=== PATIENT | female | born 1960 | race Caucasian/White ===

== ENCOUNTER 2018-05-16 13:45 | Outpatient (RCR) | payer OTHER, BC, MEDICARE, SELFPAY ==
--- NOTE | 2018-03-25 17:22 | PT.OIE ---
Current Diagnoses Low back pain (03/25/18) Weakness (03/25/18) Past Medical History (Last Updated 02/23/18 @ 21:52 by Geeta Barber) Back pain (Chronic) Past Surgical History (Last Updated 02/23/18 @ 21:56 by Geeta Barber) Previous back surgery (Resolved) S/P insertion of intrathecal pump (Resolved) History of knee replacement Provider Visit Care Team Role Provider Type Cleveland Driver MD Attending Provider Physician Family Provider Primary Care Provider Specialty: Internal Medicine Address: [address] [place] [address], [facility] Email: [email or web address] Physical Therapy Initial Evaluation PT-OP-A Visit Information Start: 03/25/18 15:26 Freq: Status: Active Protocol: Document 03/25/18 15:29 [facility] (Rec: 03/25/18 17:21 [facility] [email or web address]) Out-Patient Physical Therapy Visit Information Visit Information Visit Type Re-Evaluation Visit Note Pt previously completed 12 PT visits ending December 19, 2017 & has new authorization for further visits Visit Start Time 15:30 Visit Stop Time 16:05 Total Visit Minutes 35 Visit Number 10/04 Number of COMFORT FILLER Visits 0 PT-OP-B Current Condition Start: 03/25/18 15:26 Freq: Status: Active Protocol: Document 03/25/18 15:29 [facility] (Rec: 03/25/18 17:21 [facility] [email or web address]) Current Condition History of Current Condition Current Complaints LBP History of Current Condition Pt reports she worked at [employer] in in [place] and had repetitive strain that caused LBP that resulted in a fusion in 1998 and then a revision. Per prior notes pt reported that during the revision they removed the screws and rods, but left the cages at L5-S1. She has an intrathecal pain pump and fentanyl patches and the pump was replaced in Sep 2017. Pt reports doing HEP about 3 times a week since last bout of PT, walks 2 miles daily and works on her larger yard ([employer]) for exercise. Pt reports she wants to lose weight but she has been unable to d/t being unable to work out. Pt reprots her HEP causes pain. Prior Treatments and Tests 12 visits of PT Treatment Goals Patient/Caregiver Goals Be able to lose weight (do exercise etc w/o inc pain), do her current activities easier PT-OP-C Subjective Start: 03/25/18 15:26 Freq: Status: Active Protocol: Document 03/25/18 15:29 [facility] (Rec: 03/25/18 17:21 [facility] [email or web address]) OP-PT Pain Assessment Location Bilateral Back Pain Location Details lumbar Intensity 5 Scale Used Numeric (1 - 10) Description- Other at best 3-4/10, worst 8-9/10, 5/10 average Frequency Constant Radiating Location occasional R toes go numb Other Pain Aggravating Factors extended: walking, standing, laying, sitting, activity Pain Alleviating Factors Cold Heat Medication Other Pain Alleviating Factors stretch PT-OP-F Manual Assessment Start: 03/25/18 17:21 Freq: Status: Active Protocol: Document 03/25/18 15:29 [facility] (Rec: 03/25/18 17:22 [facility] [email or web address]) Manual Assessments Other Manual Assessments Other Manual Assessments R iliac crest higher and post PT-OP-K Range of Motion Start: 03/25/18 15:26 Freq: Status: Active Protocol: Document 03/25/18 15:29 [facility] (Rec: 03/25/18 16:11 [facility] [id number]) Lumbar Spine Range of Motion Lumbar Spine Active Degrees Testing Position standing Flexion 20 Extension 7 Lateral Flexion Left 17 Lateral Flexion Right 9 Comments pain L with SB PT-OP-L Special Tests Start: 03/25/18 15:26 Freq: Status: Active Protocol: Document 03/25/18 15:29 [facility] (Rec: 03/25/18 16:11 [facility] [id number]) Special Tests Lumbar Spine Special Tests Slump Test Results neg B PT-OP-M Strength Start: 03/25/18 15:26 Freq: Status: Active Protocol: Document 03/25/18 15:29 [facility] (Rec: 03/25/18 16:11 [facility] [id number]) Hip Strength Hip Manual Muscle Testing Right Flexion (L2) 4 Good Abduction 4- Good- External Rotation 3+ Fair+ Internal Rotation 4 Good Comments 5/5 B PF & DF seated testing; pain ER B at about L3 Left Flexion (L2) 4 Good Abduction 4- Good- External Rotation 3+ Fair+ Internal Rotation 4 Good Knee Strength Knee Manual Muscle Testing Right Flexion (S2) 4+ Good+ Extension (L3) 4+ Good+ Left Flexion (S2) 4+ Good+ Extension (L3) 4 Good PT-OP-Q Treatments Start: 03/25/18 15:26 Freq: Status: Active Protocol: Document 03/25/18 15:29 [facility] (Rec: 03/25/18 17:21 [facility] [email or web address]) Therapeutic Activity Therapeutic Activity 1 Name sleeping position Comments s/l & supine position PT-OP-T Assessment and Plan Start: 03/25/18 15:26 Freq: Status: Active Protocol: Document 03/25/18 15:29 [facility] (Rec: 03/25/18 17:21 [facility] [email or web address]) Physical Therapy Assessment Rehab Potential Rehabilitation Potential Good Evaluation Complexity Number of Personal Factors/Comorbidities 1-2 Number of Body Systems Impaired 4 or More Clinical Presentation at Evaluation Stable Impairments Impairments Activity Tolerance Functional Activities Gait Pain Posture ROM Soft Tissue Mobility Strength Goals Three Impairment pain Flat Clothier Goal (LTG) pt will be indep in pain management techniques to avoid pain inc past 5/10 LTG Duration 05/26/18 Two Impairment ROM Short Term Goal (STG) Flex to 35 deg STG Duration 04/25/18 Flat Clothier Goal (LTG) Pt will be able to pick small objects from floor with good body mechanics without increasing her pain. LTG Duration 05/26/18 One Impairment strength Short Term Goal (STG) indep HEP with min reported pain STG Duration 04/25/18 Nursing Home Goal (LTG) 5/5 strength to allow pt greater ease with yard and house work LTG Duration 05/26/18 Physical Therapy Plan Frequency and Duration Frequency of Treatment 2x/Week Duration of Treatment 2 months Plan of Care Start Date 03/25/18 Plan of Care End Date 04/25/18 Therapeutic Interventions Therapeutic Interventions Aquatic Therapy Balance Training Gait Training Home Exercise Program Joint Mobilizations Manual Therapy Neuromuscular Re-education Soft Tissue Mobilization Taping Therapeutic Activities Therapeutic Exercises Modalities Cold Pack/Ice Massage Hot Packs Next Visit Focus/Plan Next Note Type Treatment Note Next Visit Plan Review core exercises from HEP
--- NOTE | 2018-03-25 17:22 | PT.OPPOC ---
Current Diagnoses Low back pain (03/25/18) Weakness (03/25/18) Provider Visit Care Team Role Provider Type Cleveland Driver MD Attending Provider Physician Family Provider Primary Care Provider Specialty: Internal Medicine Address: [address] [place] [address], [id number] Email: [email or web address] Plan Of Care PT-OP-T Assessment and Plan Start: 03/25/18 15:26 Freq: Status: Active Protocol: Document 03/25/18 15:29 [facility] (Rec: 03/25/18 17:21 [facility] [id number]) Physical Therapy Assessment Rehab Potential Rehabilitation Potential Good Evaluation Complexity Number of Personal Factors/Comorbidities 1-2 Number of Body Systems Impaired 4 or More Clinical Presentation at Evaluation Stable Impairments Impairments Activity Tolerance Functional Activities Gait Pain Posture ROM Soft Tissue Mobility Strength Goals Three Impairment pain Hydraulic Assembler Goal (LTG) pt will be indep in pain management techniques to avoid pain inc past 5/10 LTG Duration 05/26/18 Two Impairment ROM Short Term Goal (STG) Flex to 35 deg STG Duration 04/25/18 Correction Goal (LTG) Pt will be able to pick small objects from floor with good body mechanics without increasing her pain. LTG Duration 05/26/18 One Impairment strength Short Term Goal (STG) indep HEP with min reported pain STG Duration 04/25/18 Hydraulic Assembler Goal (LTG) 5/5 strength to allow pt greater ease with yard and house work LTG Duration 05/26/18 Physical Therapy Plan Frequency and Duration Frequency of Treatment 2x/Week Duration of Treatment 2 months Plan of Care Start Date 03/25/18 Plan of Care End Date 04/25/18 Therapeutic Interventions Therapeutic Interventions Aquatic Therapy Balance Training Gait Training Home Exercise Program Joint Mobilizations Manual Therapy Neuromuscular Re-education Soft Tissue Mobilization Taping Therapeutic Activities Therapeutic Exercises Modalities Cold Pack/Ice Massage Hot Packs Next Visit Focus/Plan Next Note Type Treatment Note Next Visit Plan Review core exercises from [facility] Plan of Care Dates Plan of Care Start Date 03/25/18 Plan of Care End Date 04/25/18 Please Sign and Return: I have reviewed this Plan of Care and certify that the skilled therapy services above are required to meet the patient?s needs. Physician Signature Date Printed Name and Credentials Clinical Instructor Signature Printed Name and Credentials
--- NOTE | 2018-04-15 11:51 | PT.OTN ---
Current Diagnoses Low back pain (04/15/18) Weakness (04/15/18) Physical Therapy Treatment Note PT-OP-A Visit Information Start: 03/25/18 15:26 Freq: Status: Active Protocol: Document 04/15/18 10:00 AMB (Rec: 04/15/18 10:07 AMB [id number]) Out-Patient Physical Therapy Visit Information Visit Information Visit Type Treatment Note Visit Start Time 10:00 Visit Stop Time 10:30 Total Visit Minutes 30 Visit Number 11/04 PT-OP-B Current Condition Start: 03/25/18 15:26 Freq: Status: Active Protocol: Document 03/25/18 15:29 [facility] (Rec: 03/25/18 17:21 LR [email or web address]) Current Condition History of Current Condition Current Complaints LBP History of Current Condition Pt reports she worked at [employer] in [employer] in [place] and had repetitive strain that caused LBP that resulted in a fusion in 1998 and then a revision. Per prior notes pt reported that during the revision they removed the screws and rods, but left the cages at L5-S1. She has an intrathecal pain pump and fentanyl patches and the pump was replaced in Sep 2017. Pt reports doing HEP about 3 times a week since last bout of PT, walks 2 miles daily and works on her larger yard ([employer]) for exercise. Pt reports she wants to lose weight but she has been unable to d/t being unable to work out. Pt reprots her HEP causes pain. Prior Treatments and Tests 12 visits of PT Treatment Goals Patient/Caregiver Goals Be able to lose weight (do exercise etc w/o inc pain), do her current activities easier PT-OP-C Subjective Start: 03/25/18 15:26 Freq: Status: Active Protocol: Document 04/15/18 10:00 AMB (Rec: 04/15/18 11:50 AMB [email or web address]) OP-PT Subjective Patient Comments Patient Comments The patient attends PT 15 minutes late. She is having a difficult time sleeping due to medication changes. PT-OP-F Manual Assessment Start: 03/25/18 17:21 Freq: Status: Active Protocol: Document 03/25/18 15:29 LR (Rec: 03/25/18 17:22 LR [email or web address]) Manual Assessments Other Manual Assessments Other Manual Assessments R iliac crest higher and post PT-OP-K Range of Motion Start: 03/25/18 15:26 Freq: Status: Active Protocol: Document 03/25/18 15:29 [facility] (Rec: 03/25/18 16:11 [facility] [id number]) Lumbar Spine Range of Motion Lumbar Spine Active Degrees Testing Position standing Flexion 20 Extension 7 Lateral Flexion Left 17 Lateral Flexion Right 9 Comments pain L with SB PT-OP-L Special Tests Start: 03/25/18 15:26 Freq: Status: Active Protocol: Document 03/25/18 15:29 [facility] (Rec: 03/25/18 16:11 [facility] [id number]) Special Tests Lumbar Spine Special Tests Slump Test Results neg B PT-OP-M Strength Start: 03/25/18 15:26 Freq: Status: Active Protocol: Document 03/25/18 15:29 [facility] (Rec: 03/25/18 16:11 [facility] [id number]) Hip Strength Hip Manual Muscle Testing Right Flexion (L2) 4 Good Abduction 4- Good- External Rotation 3+ Fair+ Internal Rotation 4 Good Comments 5/5 B PF & DF seated testing; pain ER B at about L3 Left Flexion (L2) 4 Good Abduction 4- Good- External Rotation 3+ Fair+ Internal Rotation 4 Good Knee Strength Knee Manual Muscle Testing Right Flexion (S2) 4+ Good+ Extension (L3) 4+ Good+ Left Flexion (S2) 4+ Good+ Extension (L3) 4 Good PT-OP-Q Treatments Start: 03/25/18 15:26 Freq: Status: Active Protocol: Document 04/15/18 10:00 AMB (Rec: 04/15/18 11:50 AMB [email or web address]) Therapeutic Activity Therapeutic Activity 2 Name gardening mechanics Comments avoiding overuse 1 Name sleeping position Comments s/l & supine position, pillow props Manual Therapy Treatment Soft Tissue Mobilization 1 Body Location Left low back Comments safe usage of theracane PT-OP-T Assessment and Plan Start: 03/25/18 15:26 Freq: Status: Active Protocol: Document 04/15/18 09:45 AMB (Rec: 04/15/18 11:41 AMB [id number]) Physical Therapy Assessment Assessment Summary Assessment The patient was upset today because she is no longer able to get the same opiates and has not been sleeping well. Pt knows she has sleep apnea but cannot tolerate a CPAP. Discussed self care techniques and sleep positioning. Pt to follow up with body pillow, theracane as able. Physical Therapy Plan Next Visit Focus/Plan Next Visit Plan Follow up on HEP, begin core stability training- discuss safe gym exercises
--- NOTE | 2018-04-17 12:26 | PT.OTN ---
Current Diagnoses Low back pain (04/17/18) Weakness (04/17/18) Physical Therapy Treatment Note PT-OP-A Visit Information Start: 03/25/18 15:26 Freq: Status: Active Protocol: Document 04/17/18 11:10 EA (Rec: 04/17/18 11:14 EA [id number]) Out-Patient Physical Therapy Visit Information Visit Information Visit Type Treatment Note Visit Start Time 10:30 Visit Stop Time 11:40 PT-OP-B Current Condition Start: 03/25/18 15:26 Freq: Status: Active Protocol: Document 03/25/18 15:29 [facility] (Rec: 03/25/18 17:21 [facility] [id number]) Current Condition History of Current Condition Current Complaints LBP History of Current Condition Pt reports she worked at [employer] in [employer] in [place] and had repetitive strain that caused LBP that resulted in a fusion in 1998 and then a revision. Per prior notes pt reported that during the revision they removed the screws and rods, but left the cages at L5-S1. She has an intrathecal pain pump and fentanyl patches and the pump was replaced in Sep 2017. Pt reports doing HEP about 3 times a week since last bout of PT, walks 2 miles daily and works on her larger yard ([employer]) for exercise. Pt reports she wants to lose weight but she has been unable to d/t being unable to work out. Pt reprots her HEP causes pain. Prior Treatments and Tests 12 visits of PT Treatment Goals Patient/Caregiver Goals Be able to lose weight (do exercise etc w/o inc pain), do her current activities easier PT-OP-C Subjective Start: 03/25/18 15:26 Freq: Status: Active Protocol: Document 04/17/18 11:10 EA (Rec: 04/17/18 11:14 EA [id number]) OP-PT Subjective Patient Comments Patient Comments Patient reports she has been walking a lot and doing HEP; states pain usually occurs after HEP. Denies loss both LE strength or abnormal sensation. Patient Reported Progress Same PT-OP-F Manual Assessment Start: 03/25/18 17:21 Freq: Status: Active Protocol: Document 03/25/18 15:29 [facility] (Rec: 03/25/18 17:22 [facility] [id number]) Manual Assessments Other Manual Assessments Other Manual Assessments R iliac crest higher and post PT-OP-K Range of Motion Start: 03/25/18 15:26 Freq: Status: Active Protocol: Document 03/25/18 15:29 [facility] (Rec: 03/25/18 16:11 [facility] [id number]) Lumbar Spine Range of Motion Lumbar Spine Active Degrees Testing Position standing Flexion 20 Extension 7 Lateral Flexion Left 17 Lateral Flexion Right 9 Comments pain L with SB PT-OP-L Special Tests Start: 03/25/18 15:26 Freq: Status: Active Protocol: Document 03/25/18 15:29 [facility] (Rec: 03/25/18 16:11 [facility] [id number]) Special Tests Lumbar Spine Special Tests Slump Test Results neg B PT-OP-M Strength Start: 03/25/18 15:26 Freq: Status: Active Protocol: Document 03/25/18 15:29 [facility] (Rec: 03/25/18 16:11 [facility] [id number]) Hip Strength Hip Manual Muscle Testing Right Flexion (L2) 4 Good Abduction 4- Good- External Rotation 3+ Fair+ Internal Rotation 4 Good Comments 5/5 B PF & DF seated testing; pain ER B at about L3 Left Flexion (L2) 4 Good Abduction 4- Good- External Rotation 3+ Fair+ Internal Rotation 4 Good Knee Strength Knee Manual Muscle Testing Right Flexion (S2) 4+ Good+ Extension (L3) 4+ Good+ Left Flexion (S2) 4+ Good+ Extension (L3) 4 Good PT-OP-Q Treatments Start: 03/25/18 15:26 Freq: Status: Active Protocol: Document 04/17/18 11:10 EA (Rec: 04/17/18 11:14 EA [id number]) Cardio Equipment Recumbent Stepper (Sci-Fit) Duration (Minutes) 6 Resistance 1.5 Therapeutic Exercises Supine Exercises 4 Supine Exercise Name SKTC to Double knee to chest with PPT Reps/Minutes x 15 SH x 3 reps 3 Supine Exercise Name PPT + stati sit up + unilat leg raises Side bilateral Reps/Minutes x 5 reps x sets each leg 2 Supine Exercise Name PPT + static sit ups Reps/Minutes x 5SH x 5 reps 1 Supine Exercise Name PPT Reps/Minutes x 5SH x 5 reps Self-Care/Home Management Treatment Education Patient Education Body Mechanics Home Exercise Program Pain Management Posture Other Education educated with proper safe body weight loss and adviced exercises that may aggravates low back pain. PT-OP-R Modalities Start: 03/25/18 15:26 Freq: Status: Active Protocol: Document 04/17/18 12:21 EA (Rec: 04/17/18 12:25 EA [id number]) Hot Pack/Cold Pack Treatment Cold Pack Patient Position Hooklying Patient Tolerance Good PT-OP-T Assessment and Plan Start: 03/25/18 15:26 Freq: Status: Active Protocol: Document 04/17/18 12:21 EA (Rec: 04/17/18 12:25 EA [id number]) Physical Therapy Assessment Assessment Summary Assessment Noted increased low back lordosis with weak core control in all position; advance core control is not recommended to this patient as this may causes increased pressure to low back. Physical Therapy Plan Next Visit Focus/Plan Next Note Type Treatment Note Next Visit Plan Cont with current plan. To progress core control in prone and to standing once supine exercises did not causes any adverse reaction.
--- NOTE | 2018-04-22 13:05 | PT.OTN ---
Current Diagnoses Low back pain (04/22/18) Weakness (04/22/18) Physical Therapy Treatment Note PT-OP-A Visit Information Start: 03/25/18 15:26 Freq: Status: Active Protocol: Document 04/22/18 09:45 AMB (Rec: 04/23/18 11:26 AMB [email or web address]) Out-Patient Physical Therapy Visit Information Visit Information Visit Type Treatment Note Visit Start Time 10:30 Visit Stop Time 11:40 Total Visit Minutes 45 Visit Number 4/ PT-OP-B Current Condition Start: 03/25/18 15:26 Freq: Status: Active Protocol: Document 03/25/18 15:29 [facility] (Rec: 03/25/18 17:21 [facility] [id number]) Current Condition History of Current Condition Current Complaints LBP History of Current Condition Pt reports she worked at [employer] in [place] in [place] and had repetitive strain that caused LBP that resulted in a fusion in 1998 and then a revision. Per prior notes pt reported that during the revision they removed the screws and rods, but left the cages at L5-S1. She has an intrathecal pain pump and fentanyl patches and the pump was replaced in Sep 2017. Pt reports doing HEP about 3 times a week since last bout of PT, walks 2 miles daily and works on her larger yard ([employer]) for exercise. Pt reports she wants to lose weight but she has been unable to d/t being unable to work out. Pt reprots her HEP causes pain. Prior Treatments and Tests 12 visits of PT Treatment Goals Patient/Caregiver Goals Be able to lose weight (do exercise etc w/o inc pain), do her current activities easier PT-OP-C Subjective Start: 03/25/18 15:26 Freq: Status: Active Protocol: Document 04/22/18 09:45 AMB (Rec: 04/23/18 11:26 AMB [email or web address]) OP-PT Subjective Patient Comments Patient Comments Pt continues to be painful, difficult time sleeping. PT-OP-F Manual Assessment Start: 03/25/18 17:21 Freq: Status: Active Protocol: Document 03/25/18 15:29 [facility] (Rec: 03/25/18 17:22 [facility] [id number]) Manual Assessments Other Manual Assessments Other Manual Assessments R iliac crest higher and post PT-OP-K Range of Motion Start: 03/25/18 15:26 Freq: Status: Active Protocol: Document 03/25/18 15:29 [facility] (Rec: 03/25/18 16:11 [facility] [id number]) Lumbar Spine Range of Motion Lumbar Spine Active Degrees Testing Position standing Flexion 20 Extension 7 Lateral Flexion Left 17 Lateral Flexion Right 9 Comments pain L with SB PT-OP-L Special Tests Start: 03/25/18 15:26 Freq: Status: Active Protocol: Document 03/25/18 15:29 [facility] (Rec: 03/25/18 16:11 [facility] [id number]) Special Tests Lumbar Spine Special Tests Slump Test Results neg B PT-OP-M Strength Start: 03/25/18 15:26 Freq: Status: Active Protocol: Document 03/25/18 15:29 [facility] (Rec: 03/25/18 16:11 [facility] [id number]) Hip Strength Hip Manual Muscle Testing Right Flexion (L2) 4 Good Abduction 4- Good- External Rotation 3+ Fair+ Internal Rotation 4 Good Comments 5/5 B PF & DF seated testing; pain ER B at about L3 Left Flexion (L2) 4 Good Abduction 4- Good- External Rotation 3+ Fair+ Internal Rotation 4 Good Knee Strength Knee Manual Muscle Testing Right Flexion (S2) 4+ Good+ Extension (L3) 4+ Good+ Left Flexion (S2) 4+ Good+ Extension (L3) 4 Good PT-OP-Q Treatments Start: 03/25/18 15:26 Freq: Status: Active Protocol: Document 04/22/18 09:45 AMB (Rec: 04/23/18 11:26 AMB [email or web address]) Therapeutic Exercises Supine Exercises 6 Supine Exercise Name SLR Reps/Minutes 10 5 Supine Exercise Name mini bridge Comments with posterior pelvic tilt 4 Supine Exercise Name SKTC to Double knee to chest with PPT Reps/Minutes x 15 SH x 3 reps 1 Supine Exercise Name PPT Reps/Minutes x 5SH x 5 reps Sidelying Exercises 1 Sidelying Exercise Name hip abd Reps/Minutes 2x10 Standing Exercises 1 Standing Exercise Name squat Reps/Minutes 10 PT-OP-R Modalities Start: 03/25/18 15:26 Freq: Status: Active Protocol: Document 04/17/18 12:21 EA (Rec: 04/17/18 12:25 EA [id number]) Hot Pack/Cold Pack Treatment Cold Pack Patient Position Hooklying Patient Tolerance Good PT-OP-T Assessment and Plan Start: 03/25/18 15:26 Freq: Status: Active Protocol: Document 04/22/18 09:45 AMB (Rec: 04/23/18 13:00 AMB [email or web address]) Physical Therapy Assessment Assessment Summary Assessment Pt continues to substitute with gluteals/hamstrings for core exercises unless extensive cues given. Physical Therapy Plan Next Visit Focus/Plan Next Visit Plan Continue with supine progression for now
--- NOTE | 2018-04-24 12:09 | PT.OTN ---
Current Diagnoses Low back pain (04/24/18) Weakness (04/24/18) Physical Therapy Treatment Note PT-OP-A Visit Information Start: 03/25/18 15:26 Freq: Status: Active Protocol: Document 04/24/18 11:15 AMB (Rec: 04/24/18 11:42 AMB [id number]) Out-Patient Physical Therapy Visit Information Visit Information Visit Type Treatment Note Visit Start Time 11:15 Visit Stop Time 12:00 Total Visit Minutes 45 Visit Number 02/01 Evaluation Information Evaluation Date 04/24/18 PT-OP-B Current Condition Start: 03/25/18 15:26 Freq: Status: Active Protocol: Document 03/25/18 15:29 [facility] (Rec: 03/25/18 17:21 [facility] [id number]) Current Condition History of Current Condition Current Complaints LBP History of Current Condition Pt reports she worked at [employer] in [place] in [place] and had repetitive strain that caused LBP that resulted in a fusion in 1998 and then a revision. Per prior notes pt reported that during the revision they removed the screws and rods, but left the cages at L5-S1. She has an intrathecal pain pump and fentanyl patches and the pump was replaced in Sep 2017. Pt reports doing HEP about 3 times a week since last bout of PT, walks 2 miles daily and works on her larger yard [employer] for exercise. Pt reports she wants to lose weight but she has been unable to d/t being unable to work out. Pt reprots her HEP causes pain. Prior Treatments and Tests 12 visits of PT Treatment Goals Patient/Caregiver Goals Be able to lose weight (do exercise etc w/o inc pain), do her current activities easier PT-OP-C Subjective Start: 03/25/18 15:26 Freq: Status: Active Protocol: Document 04/24/18 11:15 AMB (Rec: 04/24/18 12:09 AMB [email or web address]) OP-PT Subjective Patient Comments Patient Comments Pt was painful after last session in the evening. Not sure if because of PT or not. Yesterday she was painful with standing. PT-OP-F Manual Assessment Start: 03/25/18 17:21 Freq: Status: Active Protocol: Document 03/25/18 15:29 [facility] (Rec: 03/25/18 17:22 [facility] [email or web address]) Manual Assessments Other Manual Assessments Other Manual Assessments R iliac crest higher and post PT-OP-K Range of Motion Start: 03/25/18 15:26 Freq: Status: Active Protocol: Document 03/25/18 15:29 [facility] (Rec: 03/25/18 16:11 [facility] [id number]) Lumbar Spine Range of Motion Lumbar Spine Active Degrees Testing Position standing Flexion 20 Extension 7 Lateral Flexion Left 17 Lateral Flexion Right 9 Comments pain L with SB PT-OP-L Special Tests Start: 03/25/18 15:26 Freq: Status: Active Protocol: Document 03/25/18 15:29 [facility] (Rec: 03/25/18 16:11 [facility] [id number]) Special Tests Lumbar Spine Special Tests Slump Test Results neg B PT-OP-M Strength Start: 03/25/18 15:26 Freq: Status: Active Protocol: Document 03/25/18 15:29 [facility] (Rec: 03/25/18 16:11 [facility] [id number]) Hip Strength Hip Manual Muscle Testing Right Flexion (L2) 4 Good Abduction 4- Good- External Rotation 3+ Fair+ Internal Rotation 4 Good Comments 5/5 B PF & DF seated testing; pain ER B at about L3 Left Flexion (L2) 4 Good Abduction 4- Good- External Rotation 3+ Fair+ Internal Rotation 4 Good Knee Strength Knee Manual Muscle Testing Right Flexion (S2) 4+ Good+ Extension (L3) 4+ Good+ Left Flexion (S2) 4+ Good+ Extension (L3) 4 Good PT-OP-Q Treatments Start: 03/25/18 15:26 Freq: Status: Active Protocol: Document 04/24/18 11:15 AMB (Rec: 04/24/18 12:09 AMB [email or web address]) Therapeutic Exercises Supine Exercises 7 Supine Exercise Name supine march Reps/Minutes 2x10 6 Supine Exercise Name SLR eccentric Reps/Minutes 10 4 Supine Exercise Name SKTC to Double knee to chest with PPT Reps/Minutes x 3 reps 1 Supine Exercise Name PPT Reps/Minutes x 5 reps Standing Exercises 1 Standing Exercise Name squat Reps/Minutes 10 Therapeutic Activity Therapeutic Activity 3 Name Active standing Comments stride stance, soft knees, active core PT-OP-R Modalities Start: 03/25/18 15:26 Freq: Status: Active Protocol: Document 04/17/18 12:21 EA (Rec: 04/17/18 12:25 EA [id number]) Hot Pack/Cold Pack Treatment Cold Pack Patient Position Hooklying Patient Tolerance Good PT-OP-T Assessment and Plan Start: 03/25/18 15:26 Freq: Status: Active Protocol: Document 04/24/18 11:21 AMB (Rec: 04/24/18 11:29 AMB [id number]) Physical Therapy Assessment Goals Three Impairment pain Animal Handler Goal (LTG) pt will be indep in pain management techniques to avoid pain inc past 01/30. PARTIALLY MET /10 current, but pain can flare easily LTG Duration 05/26/18 Two Impairment ROM Short Term Goal (STG) Flex to 35 deg NOT MET STG Duration 04/25/18 Animal Handler Goal (LTG) Pt will be able to pick small objects from floor with good body mechanics without increasing her pain. - PARTIALLY MET LTG Duration 05/26/18 One Impairment strength Short Term Goal (STG) indep HEP with min reported pain - PARTIALLY MET STG Duration 04/25/18 Animal Handler Goal (LTG) 5/5 strength to allow pt greater ease with yard and house work NOT MET LTG Duration 05/26/18 Assessment Summary Assessment The patient had an increase in pain with gentle supine exercises today. Using deep abdominals continues to be challenging. Physical Therapy Plan Frequency and Duration Frequency of Treatment 2x/Week Duration of Treatment 2 months Plan of Care Start Date 04/24/18 Plan of Care End Date 06/24/18 Therapeutic Interventions Therapeutic Interventions Aquatic Therapy Balance Training Gait Training Home Exercise Program Joint Mobilizations Manual Therapy Neuromuscular Re-education Soft Tissue Mobilization Taping Therapeutic Activities Therapeutic Exercises Modalities Cold Pack/Ice Massage Hot Packs Next Visit Focus/Plan Next Note Type Treatment Note Next Visit Plan Slowly progress core exercises if tolerated
--- NOTE | 2018-04-24 12:11 | PT.OPPOC ---
Current Diagnoses Low back pain (04/24/18) Weakness (04/24/18) Provider Visit Care Team Role Provider Type [place] Driver MD Attending Provider Physician Family Provider Primary Care Provider Specialty: Internal Medicine Address: [address] [place] [address], [id number] Email: [email or web address] Plan Of Care PT-OP-T Assessment and Plan Start: 03/25/18 15:26 Freq: Status: Active Protocol: Document 04/24/18 11:21 AMB (Rec: 04/24/18 11:29 AMB [id number]) Physical Therapy Assessment Goals Three Impairment pain Retail Store Assistant Goal (LTG) pt will be indep in pain management techniques to avoid pain inc past 01/30. PARTIALLY MET 10 current, but pain can flare easily LTG Duration 05/26/18 Two Impairment ROM Short Term Goal (STG) Flex to 35 deg NOT MET STG Duration 04/25/18 Retail Store Assistant Goal (LTG) Pt will be able to pick small objects from floor with good body mechanics without increasing her pain. - PARTIALLY MET LTG Duration 05/26/18 One Impairment strength Short Term Goal (STG) indep HEP with min reported pain - PARTIALLY MET STG Duration 04/25/18 Retail Store Assistant Goal (LTG) 5/5 strength to allow pt greater ease with yard and house work NOT MET LTG Duration 05/26/18 Assessment Summary Assessment The patient had an increase in pain with gentle supine exercises today. Using deep abdominals continues to be challenging. Physical Therapy Plan Frequency and Duration Frequency of Treatment 2x/Week Duration of Treatment 2 months Plan of Care Start Date 04/24/18 Plan of Care End Date 06/24/18 Therapeutic Interventions Therapeutic Interventions Aquatic Therapy Balance Training Gait Training Home Exercise Program Joint Mobilizations Manual Therapy Neuromuscular Re-education Soft Tissue Mobilization Taping Therapeutic Activities Therapeutic Exercises Modalities Cold Pack/Ice Massage Hot Packs Next Visit Focus/Plan Next Note Type Treatment Note Next Visit Plan Slowly progres core exercises if tolerated Plan of Care Dates Plan of Care Start Date 04/24/18 Plan of Care End Date 06/24/18 Please Sign and Return: I have reviewed this Plan of Care and certify that the skilled therapy services above are required to meet the patient?s needs. Physician Signature Date Printed Name and Credentials Clinical Instructor Signature Printed Name and Credentials
--- NOTE | 2018-04-29 14:05 | PT.OTN ---
Current Diagnoses Low back pain (04/29/18) Weakness (04/29/18) Physical Therapy Treatment Note PT-OP-A Visit Information Start: 03/25/18 15:26 Freq: Status: Active Protocol: Document 04/29/18 13:00 AMB (Rec: 04/29/18 13:14 AMB [id number]) Out-Patient Physical Therapy Visit Information Visit Information Visit Type Treatment Note Visit Start Time 11:15 Visit Stop Time 12:00 Total Visit Minutes 45 Visit Number 03/04 Evaluation Information Evaluation Date 04/24/18 PT-OP-B Current Condition Start: 03/25/18 15:26 Freq: Status: Active Protocol: Document 03/25/18 15:29 [facility] (Rec: 03/25/18 17:21 [facility] [id number]) Current Condition History of Current Condition Current Complaints LBP History of Current Condition Pt reports she worked at [employer] in [place] in [place] and had repetitive strain that caused LBP that resulted in a fusion in 1998 and then a revision. Per prior notes pt reported that during the revision they removed the screws and rods, but left the cages at L5-S1. She has an intrathecal pain pump and fentanyl patches and the pump was replaced in Sep 2017. Pt reports doing HEP about 3 times a week since last bout of PT, walks 2 miles daily and works on her larger yard [employer]) for exercise. Pt reports she wants to lose weight but she has been unable to d/t being unable to work out. Pt reprots her HEP causes pain. Prior Treatments and Tests 12 visits of PT Treatment Goals Patient/Caregiver Goals Be able to lose weight (do exercise etc w/o inc pain), do her current activities easier PT-OP-C Subjective Start: 03/25/18 15:26 Freq: Status: Active Protocol: Document 04/29/18 13:00 AMB (Rec: 04/29/18 13:14 AMB [id number]) OP-PT Subjective Patient Comments Patient Comments Pt painful after last session, but not as much. PT-OP-F Manual Assessment Start: 03/25/18 17:21 Freq: Status: Active Protocol: Document 03/25/18 15:29 [facility] (Rec: 03/25/18 17:22 [facility] [id number]) Manual Assessments Other Manual Assessments Other Manual Assessments R iliac crest higher and post PT-OP-K Range of Motion Start: 03/25/18 15:26 Freq: Status: Active Protocol: Document 03/25/18 15:29 [facility] (Rec: 03/25/18 16:11 [facility] [id number]) Lumbar Spine Range of Motion Lumbar Spine Active Degrees Testing Position standing Flexion 20 Extension 7 Lateral Flexion Left 17 Lateral Flexion Right 9 Comments pain L with SB PT-OP-L Special Tests Start: 03/25/18 15:26 Freq: Status: Active Protocol: Document 03/25/18 15:29 [facility] (Rec: 03/25/18 16:11 [facility] [id number]) Special Tests Lumbar Spine Special Tests Slump Test Results neg B PT-OP-M Strength Start: 03/25/18 15:26 Freq: Status: Active Protocol: Document 03/25/18 15:29 [facility] (Rec: 03/25/18 16:11 [facility] [id number]) Hip Strength Hip Manual Muscle Testing Right Flexion (L2) 4 Good Abduction 4- Good- External Rotation 3+ Fair+ Internal Rotation 4 Good Comments 5/5 B PF & DF seated testing; pain ER B at about L3 Left Flexion (L2) 4 Good Abduction 4- Good- External Rotation 3+ Fair+ Internal Rotation 4 Good Knee Strength Knee Manual Muscle Testing Right Flexion (S2) 4+ Good+ Extension (L3) 4+ Good+ Left Flexion (S2) 4+ Good+ Extension (L3) 4 Good PT-OP-Q Treatments Start: 03/25/18 15:26 Freq: Status: Active Protocol: Document 04/29/18 13:00 AMB (Rec: 04/29/18 13:56 AMB [id number]) Cardio Equipment Recumbent Elliptical ([employer]) Duration (Minutes) 8 Resistance 4 Therapeutic Exercises Supine Exercises 7 Supine Exercise Name supine march Reps/Minutes 2x10 6 Supine Exercise Name SLR eccentric Reps/Minutes 10 4 Supine Exercise Name SKTC to Double knee to chest with PPT Reps/Minutes x 3 reps Prone Exercises 1 Prone Exercise Name lumbar extension Reps/Minutes 10 Comments on forearms Standing Exercises 1 Standing Exercise Name standing lumbar extension Comments at// bars behind back Therapeutic Activity Therapeutic Activity 3 Name Active standing Comments stride stance, soft knees, active core 2 Name standing kitchen Comments body mechanics of washing dishes PT-OP-R Modalities Start: 03/25/18 15:26 Freq: Status: Active Protocol: Document 04/17/18 12:21 EA (Rec: 04/17/18 12:25 EA [id number]) Hot Pack/Cold Pack Treatment Cold Pack Patient Position Hooklying Patient Tolerance Good PT-OP-T Assessment and Plan Start: 03/25/18 15:26 Freq: Status: Active Protocol: Document 04/29/18 13:00 AMB (Rec: 04/29/18 13:56 AMB [id number]) Physical Therapy Assessment Assessment Summary Assessment The patient is doing better with exercise tolerance, but continues to have a high baseline pain. Physical Therapy Plan Next Visit Focus/Plan Next Note Type Treatment Note Next Visit Plan Progress core stability, body mechanics.
--- NOTE | 2018-05-01 12:42 | PT.OTN ---
Current Diagnoses Low back pain (05/01/18) Weakness (05/01/18) Physical Therapy Treatment Note PT-OP-A Visit Information Start: 03/25/18 15:26 Freq: Status: Active Protocol: Document 05/01/18 11:15 AMB (Rec: 05/01/18 11:32 AMB [id number]) Out-Patient Physical Therapy Visit Information Visit Information Visit Type Treatment Note Visit Start Time 11:30 Visit Stop Time 12:00 Total Visit Minutes 30 Visit Number 04/03 Evaluation Information Evaluation Date 04/24/18 PT-OP-B Current Condition Start: 03/25/18 15:26 Freq: Status: Active Protocol: Document 03/25/18 15:29 [facility] (Rec: 03/25/18 17:21 [facility] [id number]) Current Condition History of Current Condition Current Complaints LBP History of Current Condition Pt reports she worked at [employer] in [employer] in [place] and had repetitive strain that caused LBP that resulted in a fusion in 1998 and then a revision. Per prior notes pt reported that during the revision they removed the screws and rods, but left the cages at L5-S1. She has an intrathecal pain pump and fentanyl patches and the pump was replaced in Sep 2017. Pt reports doing HEP about 3 times a week since last bout of PT, walks 2 miles daily and works on her larger yard [employer] for exercise. Pt reports she wants to lose weight but she has been unable to d/t being unable to work out. Pt reprots her HEP causes pain. Prior Treatments and Tests 12 visits of PT Treatment Goals Patient/Caregiver Goals Be able to lose weight (do exercise etc w/o inc pain), do her current activities easier PT-OP-C Subjective Start: 03/25/18 15:26 Freq: Status: Active Protocol: Document 05/01/18 11:15 AMB (Rec: 05/01/18 11:32 AMB [id number]) OP-PT Subjective Patient Comments Patient Comments Pt not painful after last session. PT-OP-F Manual Assessment Start: 03/25/18 17:21 Freq: Status: Active Protocol: Document 03/25/18 15:29 [facility] (Rec: 03/25/18 17:22 [facility] [id number]) Manual Assessments Other Manual Assessments Other Manual Assessments R iliac crest higher and post PT-OP-K Range of Motion Start: 03/25/18 15:26 Freq: Status: Active Protocol: Document 03/25/18 15:29 [facility] (Rec: 03/25/18 16:11 [facility] [id number]) Lumbar Spine Range of Motion Lumbar Spine Active Degrees Testing Position standing Flexion 20 Extension 7 Lateral Flexion Left 17 Lateral Flexion Right 9 Comments pain L with SB PT-OP-L Special Tests Start: 03/25/18 15:26 Freq: Status: Active Protocol: Document 03/25/18 15:29 [facility] (Rec: 03/25/18 16:11 [facility] [id number]) Special Tests Lumbar Spine Special Tests Slump Test Results neg B PT-OP-M Strength Start: 03/25/18 15:26 Freq: Status: Active Protocol: Document 03/25/18 15:29 [facility] (Rec: 03/25/18 16:11 [facility] [id number]) Hip Strength Hip Manual Muscle Testing Right Flexion (L2) 4 Good Abduction 4- Good- External Rotation 3+ Fair+ Internal Rotation 4 Good Comments 5/5 B PF & DF seated testing; pain ER B at about L3 Left Flexion (L2) 4 Good Abduction 4- Good- External Rotation 3+ Fair+ Internal Rotation 4 Good Knee Strength Knee Manual Muscle Testing Right Flexion (S2) 4+ Good+ Extension (L3) 4+ Good+ Left Flexion (S2) 4+ Good+ Extension (L3) 4 Good PT-OP-Q Treatments Start: 03/25/18 15:26 Freq: Status: Active Protocol: Document 05/01/18 11:15 AMB (Rec: 05/01/18 11:53 AMB [id number]) Cardio Equipment Recumbent Elliptical ([employer]) Duration (Minutes) 8 Resistance 4 Therapeutic Exercises Supine Exercises 7 Supine Exercise Name supine march Reps/Minutes 2x10 6 Supine Exercise Name SLR eccentric Reps/Minutes 10 5 Supine Exercise Name mini bridge Comments with posterior pelvic tilt 4 Supine Exercise Name SKTC to Double knee to chest with PPT Reps/Minutes x 3 reps 1 Supine Exercise Name PPT Reps/Minutes x 5 reps Prone Exercises 1 Prone Exercise Name lumbar extension Reps/Minutes 10 Comments on forearms Standing Exercises 1 Standing Exercise Name squat Reps/Minutes 10 PT-OP-R Modalities Start: 03/25/18 15:26 Freq: Status: Active Protocol: Document 04/17/18 12:21 EA (Rec: 04/17/18 12:25 EA [id number]) Hot Pack/Cold Pack Treatment Cold Pack Patient Position Hooklying Patient Tolerance Good PT-OP-T Assessment and Plan Start: 03/25/18 15:26 Freq: Status: Active Protocol: Document 05/01/18 11:15 AMB (Rec: 05/01/18 12:40 AMB [email or web address]) Physical Therapy Assessment Assessment Summary Assessment The patient was painful with squats today, difficulty coming into lumbar neutral. Physical Therapy Plan Next Visit Focus/Plan Next Note Type Treatment Note Next Visit Plan Progress lumbar AROM
--- NOTE | 2018-05-07 15:09 | PT.OTN ---
Current Diagnoses Low back pain (05/07/18) Weakness (05/07/18) Physical Therapy Treatment Note PT-OP-A Visit Information Start: 03/25/18 15:26 Freq: Status: Active Protocol: Document 05/07/18 13:00 AMB (Rec: 05/07/18 13:13 AMB [id number]) Out-Patient Physical Therapy Visit Information Visit Information Visit Type Treatment Note Visit Start Time 13:00 Visit Stop Time 13:45 Total Visit Minutes 45 Visit Number 05/04 Evaluation Information Evaluation Date 03/25/18 PT-OP-B Current Condition Start: 03/25/18 15:26 Freq: Status: Active Protocol: Document 03/25/18 15:29 [facility] (Rec: 03/25/18 17:21 [facility] [email or web address]) Current Condition History of Current Condition Current Complaints LBP History of Current Condition Pt reports she worked at [employer] in [employer] in [place] and had repetitive strain that caused LBP that resulted in a fusion in 1998 and then a revision. Per prior notes pt reported that during the revision they removed the screws and rods, but left the cages at L5-S1. She has an intrathecal pain pump and fentanyl patches and the pump was replaced in Sep 2017. Pt reports doing HEP about 3 times a week since last bout of PT, walks 2 miles daily and works on her larger yard [employer]) for exercise. Pt reports she wants to lose weight but she has been unable to d/t being unable to work out. Pt reprots her HEP causes pain. Prior Treatments and Tests 12 visits of PT Treatment Goals Patient/Caregiver Goals Be able to lose weight (do exercise etc w/o inc pain), do her current activities easier PT-OP-C Subjective Start: 03/25/18 15:26 Freq: Status: Active Protocol: Document 05/07/18 13:00 AMB (Rec: 05/07/18 13:13 AMB [id number]) OP-PT Subjective Patient Comments Patient Comments Bad back pain this week. PT-OP-F Manual Assessment Start: 03/25/18 17:21 Freq: Status: Active Protocol: Document 03/25/18 15:29 [facility] (Rec: 03/25/18 17:22 [facility] [email or web address]) Manual Assessments Other Manual Assessments Other Manual Assessments R iliac crest higher and post PT-OP-K Range of Motion Start: 03/25/18 15:26 Freq: Status: Active Protocol: Document 03/25/18 15:29 [facility] (Rec: 03/25/18 16:11 [facility] [id number]) Lumbar Spine Range of Motion Lumbar Spine Active Degrees Testing Position standing Flexion 20 Extension 7 Lateral Flexion Left 17 Lateral Flexion Right 9 Comments pain L with SB PT-OP-L Special Tests Start: 03/25/18 15:26 Freq: Status: Active Protocol: Document 03/25/18 15:29 [facility] (Rec: 03/25/18 16:11 [facility] [id number]) Special Tests Lumbar Spine Special Tests Slump Test Results neg B PT-OP-M Strength Start: 03/25/18 15:26 Freq: Status: Active Protocol: Document 03/25/18 15:29 [facility] (Rec: 03/25/18 16:11 [facility] [id number]) Hip Strength Hip Manual Muscle Testing Right Flexion (L2) 4 Good Abduction 4- Good- External Rotation 3+ Fair+ Internal Rotation 4 Good Comments 5/5 B PF & DF seated testing; pain ER B at about L3 Left Flexion (L2) 4 Good Abduction 4- Good- External Rotation 3+ Fair+ Internal Rotation 4 Good Knee Strength Knee Manual Muscle Testing Right Flexion (S2) 4+ Good+ Extension (L3) 4+ Good+ Left Flexion (S2) 4+ Good+ Extension (L3) 4 Good PT-OP-Q Treatments Start: 03/25/18 15:26 Freq: Status: Active Protocol: Document 05/07/18 13:00 AMB (Rec: 05/07/18 15:08 AMB [email or web address]) Cardio Equipment Recumbent Elliptical ([employer]) Duration (Minutes) 8 Resistance 4 Therapeutic Exercises Supine Exercises 7 Supine Exercise Name supine march Reps/Minutes 2x10 6 Supine Exercise Name SLR eccentric Reps/Minutes 10 4 Supine Exercise Name SKTC to Double knee to chest with PPT Reps/Minutes x 3 reps 1 Supine Exercise Name PPT Reps/Minutes x 5 reps Standing Exercises 1 Standing Exercise Name squat Reps/Minutes 10 PT-OP-R Modalities Start: 03/25/18 15:26 Freq: Status: Active Protocol: Document 04/17/18 12:21 EA (Rec: 04/17/18 12:25 EA [id number]) Hot Pack/Cold Pack Treatment Cold Pack Patient Position Hooklying Patient Tolerance Good PT-OP-T Assessment and Plan Start: 03/25/18 15:26 Freq: Status: Active Protocol: Document 05/07/18 13:00 AMB (Rec: 05/07/18 15:08 AMB [email or web address]) Physical Therapy Assessment Assessment Summary Assessment Pt did not tolerate as much today due to increased pain (6 /10, 7/10 pain). Physical Therapy Plan Next Visit Focus/Plan Next Note Type Treatment Note Next Visit Plan Progress core stability as tolerated
--- NOTE | 2018-05-16 14:46 | PT.OTN ---
Current Diagnoses Low back pain (05/16/18) Weakness (05/16/18) Physical Therapy Treatment Note PT-OP-A Visit Information Start: 03/25/18 15:26 Freq: Status: Active Protocol: Document 05/16/18 13:45 AMB (Rec: 05/16/18 14:01 AMB [id number]) Out-Patient Physical Therapy Visit Information Visit Information Visit Type Treatment Note Visit Start Time 13:00 Visit Stop Time 13:45 Total Visit Minutes 45 Visit Number 06/04 Evaluation Information Evaluation Date 03/25/18 PT-OP-B Current Condition Start: 03/25/18 15:26 Freq: Status: Active Protocol: Document 03/25/18 15:29 [facility] (Rec: 03/25/18 17:21 [facility] [id number]) Current Condition History of Current Condition Current Complaints LBP History of Current Condition Pt reports she worked at [employer] in [employer] in [place] and had repetitive strain that caused LBP that resulted in a fusion in 1998 and then a revision. Per prior notes pt reported that during the revision they removed the screws and rods, but left the cages at L5-S1. She has an intrathecal pain pump and fentanyl patches and the pump was replaced in Sep 2017. Pt reports doing HEP about 3 times a week since last bout of PT, walks 2 miles daily and works on her larger yard [employer] for exercise. Pt reports she wants to lose weight but she has been unable to d/t being unable to work out. Pt reprots her HEP causes pain. Prior Treatments and Tests 12 visits of PT Treatment Goals Patient/Caregiver Goals Be able to lose weight (do exercise etc w/o inc pain), do her current activities easier PT-OP-C Subjective Start: 03/25/18 15:26 Freq: Status: Active Protocol: Document 05/16/18 13:45 AMB (Rec: 05/16/18 14:01 AMB [id number]) OP-PT Subjective Patient Comments Patient Comments Pain has been up and down PT-OP-F Manual Assessment Start: 03/25/18 17:21 Freq: Status: Active Protocol: Document 03/25/18 15:29 LR (Rec: 03/25/18 17:22 [facility] [id number]) Manual Assessments Other Manual Assessments Other Manual Assessments R iliac crest higher and post PT-OP-K Range of Motion Start: 03/25/18 15:26 Freq: Status: Active Protocol: Document 03/25/18 15:29 [facility] (Rec: 03/25/18 16:11 [facility] [id number]) Lumbar Spine Range of Motion Lumbar Spine Active Degrees Testing Position standing Flexion 20 Extension 7 Lateral Flexion Left 17 Lateral Flexion Right 9 Comments pain L with SB PT-OP-L Special Tests Start: 03/25/18 15:26 Freq: Status: Active Protocol: Document 03/25/18 15:29 [facility] (Rec: 03/25/18 16:11 [facility] [id number]) Special Tests Lumbar Spine Special Tests Slump Test Results neg B PT-OP-M Strength Start: 03/25/18 15:26 Freq: Status: Active Protocol: Document 03/25/18 15:29 [facility] (Rec: 03/25/18 16:11 [facility] [id number]) Hip Strength Hip Manual Muscle Testing Right Flexion (L2) 4 Good Abduction 4- Good- External Rotation 3+ Fair+ Internal Rotation 4 Good Comments 5/5 B PF & DF seated testing; pain ER B at about L3 Left Flexion (L2) 4 Good Abduction 4- Good- External Rotation 3+ Fair+ Internal Rotation 4 Good Knee Strength Knee Manual Muscle Testing Right Flexion (S2) 4+ Good+ Extension (L3) 4+ Good+ Left Flexion (S2) 4+ Good+ Extension (L3) 4 Good PT-OP-Q Treatments Start: 03/25/18 15:26 Freq: Status: Active Protocol: Document 05/16/18 13:45 AMB (Rec: 05/16/18 14:45 AMB [email or web address]) Therapeutic Exercises Supine Exercises 7 Supine Exercise Name supine march Reps/Minutes 2x10 6 Supine Exercise Name SLR eccentric Reps/Minutes 10 4 Supine Exercise Name SKTC to Double knee to chest with PPT Reps/Minutes x 3 reps Standing Exercises 1 Standing Exercise Name standing lumbar extension Comments at// bars behind back PT-OP-R Modalities Start: 03/25/18 15:26 Freq: Status: Active Protocol: Document 04/17/18 12:21 EA (Rec: 04/17/18 12:25 EA [id number]) Hot Pack/Cold Pack Treatment Cold Pack Patient Position Hooklying Patient Tolerance Good PT-OP-T Assessment and Plan Start: 03/25/18 15:26 Freq: Status: Active Protocol: Document 05/16/18 13:45 AMB (Rec: 05/16/18 14:45 AMB [email or web address]) Physical Therapy Assessment Assessment Summary Assessment Pt had increased cramping with exercises today. Physical Therapy Plan Next Visit Focus/Plan Next Note Type Treatment Note Next Visit Plan possible d/c next visit
--- NOTE | 2018-05-30 14:19 | PT.OPDS ---
Current Diagnoses Low back pain (05/16/18) Weakness (05/16/18) Provider Visit Care Team Role Provider Type Cleveland Driver MD Attending Provider Physician Family Provider Primary Care Provider Specialty: Internal Medicine Address: [address] [place] [address], [address] Email: [email or web address] Visit Number Visit Number 06/04 Discharge Summary PT-OP-B Current Condition Start: 03/25/18 15:26 Freq: Status: Active Protocol: Document 03/25/18 15:29 [facility] (Rec: 03/25/18 17:21 [facility] [id number]) Current Condition History of Current Condition Current Complaints LBP History of Current Condition Pt reports she worked at [email or web address] in [employer] in [place] and had repetitive strain that caused LBP that resulted in a fusion in 1998 and then a revision. Per prior notes pt reported that during the revision they removed the screws and rods, but left the cages at L5-S1. She has an intrathecal pain pump and fentanyl patches and the pump was replaced in Sep 2017. Pt reports doing HEP about 3 times a week since last bout of PT, walks 2 miles daily and works on her larger yard ([employer]) for exercise. Pt reports she wants to lose weight but she has been unable to d/t being unable to work out. Pt reprots her HEP causes pain. Prior Treatments and Tests 12 visits of PT Treatment Goals Patient/Caregiver Goals Be able to lose weight (do exercise etc w/o inc pain), do her current activities easier PT-OP-C Subjective Start: 03/25/18 15:26 Freq: Status: Active Protocol: Document 05/16/18 13:45 AMB (Rec: 05/16/18 14:01 AMB [id number]) OP-PT Subjective Patient Comments Patient Comments Pain has been up and down PT-OP-F Manual Assessment Start: 03/25/18 17:21 Freq: Status: Active Protocol: Document 03/25/18 15:29 [facility] (Rec: 03/25/18 17:22 [facility] [id number]) Manual Assessments Other Manual Assessments Other Manual Assessments R iliac crest higher and post PT-OP-K Range of Motion Start: 03/25/18 15:26 Freq: Status: Active Protocol: Document 03/25/18 15:29 [facility] (Rec: 03/25/18 16:11 [facility] [id number]) Lumbar Spine Range of Motion Lumbar Spine Active Degrees Testing Position standing Flexion 20 Extension 7 Lateral Flexion Left 17 Lateral Flexion Right 9 Comments pain L with SB PT-OP-L Special Tests Start: 03/25/18 15:26 Freq: Status: Active Protocol: Document 03/25/18 15:29 [facility] (Rec: 03/25/18 16:11 [facility] [id number]) Special Tests Lumbar Spine Special Tests Slump Test Results neg B PT-OP-M Strength Start: 03/25/18 15:26 Freq: Status: Active Protocol: Document 03/25/18 15:29 [facility] (Rec: 03/25/18 16:11 [facility] [id number]) Hip Strength Hip Manual Muscle Testing Right Flexion (L2) 4 Good Abduction 4- Good- External Rotation 3+ Fair+ Internal Rotation 4 Good Comments 5/5 B PF & DF seated testing; pain ER B at about L3 Left Flexion (L2) 4 Good Abduction 4- Good- External Rotation 3+ Fair+ Internal Rotation 4 Good Knee Strength Knee Manual Muscle Testing Right Flexion (S2) 4+ Good+ Extension (L3) 4+ Good+ Left Flexion (S2) 4+ Good+ Extension (L3) 4 Good PT-OP-T Assessment and Plan Start: 03/25/18 15:26 Freq: Status: Active Protocol: Document 05/30/18 14:11 AMB (Rec: 05/30/18 14:19 AMB [email or web address]) Physical Therapy Assessment Goals Three Impairment pain Fiberglass Machine Operator Goal (LTG) pt will be indep in pain management techniques to avoid pain inc past 01/30. PARTIALLY MET 4/10 current, but pain can flare easily LTG Duration 05/26/18 Two Impairment ROM Short Term Goal (STG) Flex to 35 deg NOT MET STG Duration 04/25/18 Fiberglass Machine Operator Goal (LTG) Pt will be able to pick small objects from floor with good body mechanics without increasing her pain. - PARTIALLY MET LTG Duration 05/26/18 One Impairment strength Short Term Goal (STG) indep HEP with min reported pain - PARTIALLY MET STG Duration 04/25/18 Nursing Home Goal (LTG) 5/5 strength to allow pt greater ease with yard and house work NOT MET LTG Duration 05/26/18 Assessment Summary Assessment The patient has been seen intermittently since August 13 2017 for a total of 19 visits. Recently she has had more difficulty with pain control due to a change in her medication. She has been able to do her exercises, and has been able to show good body mechanics, but that is more intermittent and only occurs when she actively thinks about it. She will need to continue with her HEP and may need further PT in the future if she comes to a plateau with her current HEP. Physical Therapy Plan Discharge Physical Therapy Discharge Reasons Patient Request Discharge Comments Patient feels she is ready to be discharged with her current HEP.
== END 2018-06-11 13:16 ==
LOC: PHYS 13:45
PROVIDERS: Family Provider Internal Medicine; PCP Internal Medicine; Visit Provider Internal Medicine
DX: M54.5 Low back pain (principal); R53.1 Weakness
CPT/HCPCS: 97010; 97110; 97161; 97530; 97535

== ENCOUNTER → 2018-05-23 12:07 | Outpatient (CLI) | payer BC, MEDICARE, SELFPAY ==
--- NOTE | 2018-05-23 | DI.MG.S_ITS ---
BILATERAL DIGITAL SCREENING MAMMOGRAM 3D/2D WITH CAD: 05/23/2018 CLINICAL: Routine screening. Comparison is made to exams dated: 01/24/2017 mammogram, 08/17/2015 mammogram - [facility], and 07/10/2010 mammogram - [facility]. There are scattered fibroglandular elements in both breasts. Current study was also evaluated with a Computer Aided Detection (CAD) system. No significant masses, calcifications, or other findings are seen in either breast. There has been no significant interval change. IMPRESSION: NEGATIVE There is no mammographic evidence of malignancy. A 1 year screening mammogram is recommended. This exam was interpreted at Station ID: [id number]. NOTE: For mammograms, a report in lay terms will be sent to the patient. Approximately 15% of breast malignancies will not be visualized mammographically. In the management of a palpable breast mass, a negative mammogram must not discourage biopsy of a clinically suspicious lesion. Electronically Signed By: Sreedhar doherty/amanda:05/23/2018 13:19:23 copy to: Vadim Brown letter sent: Normal Exam ACR BI-RADS Category 1: Negative [id number]
== END ==
PROVIDERS: Family Provider Internal Medicine; PCP Internal Medicine; Visit Provider Internal Medicine
DX: Z12.31 Encounter for screening mammogram for malignant neoplasm of breast (principal)
CPT/HCPCS: 77063; 77067

== ENCOUNTER → 2019-05-07 12:42 | Outpatient (CLI) | payer OTHER, SELFPAY ==
[2019-05-07 13:38] LABS: Alanine Aminotransferase 37 IU/L (9-52); Albumin 4.7 g/dL (3.5-5.0); Albumin Globulin Ratio 1.4 (1.0-2.8); Alkaline Phosphatase 113 U/L (38-126); Aspartate Aminotransferase 37 IU/L (14-36); Bilirubin Total 0.6 mg/dL (0.2-1.3); Bilirubin Unconjugated 0.4 mg/dL (0.0-1.1); Blood Urea Nitrogen 15 mg/dL (7-17); Calcium 9.5 mg/dL (8.4-10.2); Carbon Dioxide 29 mmol/L (22-32); Chloride 100 mmol/L (98-107); Estimated Glomerular Filt Rate > 60.0 mL/min (>60); Globulin 3.4 g/dL (1.7-4.1); Glucose 100 mg/dL (70-100); HEMOLYSIS < 15 (0-50); Phosphorous 4.6 mg/dL (2.5-4.5); Potassium 3.8 mmol/L (3.4-5.1); Sodium 141 mmol/L (137-145); Total Protein 8.1 g/dL (6.3-8.2)
== END ==
PROVIDERS: Family Provider Internal Medicine; Visit Provider Pain Medicine Pain Medicine
DX: M54.5 Low back pain (principal); G89.4 Chronic pain syndrome
CPT/HCPCS: 36415; 80069; 80076

== ENCOUNTER → 2020-09-21 08:27 | Outpatient (CLI) | payer BC, MEDICARE, SELFPAY ==
--- NOTE | 2020-09-21 | DI.MG.S_ITS ---
BILATERAL DIGITAL SCREENING MAMMOGRAM 3D/2D WITH CAD: 09/21/2020 CLINICAL: Routine screening. Comparison is made to exams dated: 05/23/2018 mammogram, 01/24/2017 mammogram, and 08/17/2015 mammogram - [facility]. There are scattered fibroglandular elements in both breasts. Current study was also evaluated with a Computer Aided Detection (CAD) system. No significant masses, calcifications, or other findings are seen in either breast. There has been no significant interval change. IMPRESSION: NEGATIVE There is no mammographic evidence of malignancy. A 1 year screening mammogram is recommended. This exam was interpreted at Station ID: [id number]. NOTE: For mammograms, a report in lay terms will be sent to the patient. Approximately 15% of breast malignancies will not be visualized mammographically. In the management of a palpable breast mass, a negative mammogram must not discourage biopsy of a clinically suspicious lesion. Electronically Signed By: Sarah riddle/amanda:09/21/2020 09:45:26 copy to: Vadim Brown letter sent: Normal Exam ACR BI-RADS Category 1: Negative [id number]
== END ==
PROVIDERS: Family Provider Internal Medicine; PCP Internal Medicine; Referring Provider Internal Medicine; Visit Provider Internal Medicine
DX: Z12.31 Encounter for screening mammogram for malignant neoplasm of breast (principal)
CPT/HCPCS: 77063; 77067

== ENCOUNTER → 2020-12-13 13:05 | Outpatient (CLI) | payer MEDICARE, SELFPAY ==
[2020-12-15 14:36] LABS: Fecal Immunochemical Test Negative (Negative)
== END ==
PROVIDERS: Family Provider Internal Medicine; PCP Internal Medicine; Referring Provider Internal Medicine; Visit Provider Internal Medicine
DX: Z12.11 Encounter for screening for malignant neoplasm of colon (principal)
CPT/HCPCS: 82274

== ENCOUNTER 2021-07-18 12:04 | Emergency (ER) | payer MEDICARE, SELFPAY ==
[2021-07-18 13:16] VITALS: BP 170/92; PULSE 89; RESP 22; TEMP 36.1; O2SAT 97
== END 2021-07-18 15:49 | disposition left against medical advice (07) ==
PROVIDERS: Emergency Provider Emergency Medicine; Family Provider Internal Medicine; PCP Internal Medicine
DX: R11.0 Nausea (principal); R20.0 Anesthesia of skin; R42 Dizziness and giddiness
CPT/HCPCS: 99281

== ENCOUNTER → 2021-12-02 09:07 | Outpatient (CLI) | payer MEDICARE, SELFPAY ==
[2021-12-02 11:16] LABS: Alanine Aminotransferase 53 IU/L (<35); Albumin 4.5 g/dL (3.5-5.0); Albumin Globulin Ratio 1.6 (1.0-2.8); Alkaline Phosphatase 107 U/L (38-126); Aspartate Aminotransferase 148 IU/L (14-36); BUN Creatinine Ratio 22.7 (6-22); Bilirubin Total 1.6 mg/dL (0.2-1.3); Blood Urea Nitrogen 15 mg/dL (7-17); Carbon Dioxide 30 mmol/L (22-32); Chloride 102 mmol/L (98-107); Cholesterol 219 mg/dL (140-199); Estimated Glomerular Filt Rate > 60.0 mL/min (>60); Globulin 2.9 g/dL (1.7-4.1); Glucose 99 mg/dL (80-110); HDL Cholesterol 83 mg/dL (40-60); HEMOLYSIS < 15 (0-50); LDL Cholesterol Calculated 57 mg/dL (<100); Potassium 3.9 mmol/L (3.4-5.1); Sodium 140 mmol/L (137-145); Total Protein 7.4 g/dL (6.3-8.2); Triglycerides 394 mg/dL (35-150)
== END ==
PROVIDERS: Family Provider Internal Medicine; PCP Internal Medicine; Referring Provider Internal Medicine; Visit Provider Internal Medicine
DX: I10 Essential (primary) hypertension (principal); G89.29 Other chronic pain; M54.59 Other low back pain; M81.0 Age-related osteoporosis without current pathological fracture; Z13.1 Encounter for screening for diabetes mellitus; Z13.220 Encounter for screening for lipoid disorders; Z13.6 Encounter for screening for cardiovascular disorders
CPT/HCPCS: 36415; 80053; 80061

== ENCOUNTER → 2022-01-02 10:01 | Outpatient (CLI) | payer MEDICARE, SELFPAY ==
--- NOTE | 2022-01-02 10:04 | DI.US.S_ITS ---
PROCEDURE: US ABDOMEN COMPLETE INDICATIONS: abnl lfts/chronic hepatitis TECHNIQUE: Real-time scanning was performed of the abdominal and retroperitoneal organs, with image documentation. COMPARISON: None. FINDINGS: Liver: Liver is normal in size and homogeneous in echotexture. Gallbladder: Gallbladder is sonographically normal. No gallstones. No gallbladder wall thickening. No pericholecystic fluid. No sonographic Godoy sign. Biliary ducts: Intrahepatic bile ducts are non-dilated. Extrahepatic bile duct caliber measures 2.8 mm. Normal is 6-7 mm or less in diameter, or 10 mm or less post-cholecystectomy. Pancreas: Visualized portions of the pancreas are sonographically normal. Tail is obscured by bowel gas. Spleen: Spleen is normal in size and homogeneous in echotexture. Kidneys: Kidneys are normal in size and echotexture. Right kidney measures 10.5 cm long; left kidney measures 11.9 cm long. No hydronephrosis or nephrolithiasis. No solid masses. Aorta: Visualized aorta is normal in caliber at less than 3 cm. Iliacs: Proximal common iliac arteries are normal in caliber at less than 2.5 cm. IVC: Intrahepatic inferior vena cava is patent. Miscellaneous: No free abdominal fluid. IMPRESSION: Normal abdominal sonogram. Dictated by: Sivan Carreno MD, PhD on 01/02/2022 at 15:05 Approved by: Sivan Carreno MD, PhD on 01/02/2022 at 15:06
== END ==
PROVIDERS: Family Provider Internal Medicine; PCP Internal Medicine; Referring Provider Internal Medicine; Visit Provider Internal Medicine
DX: K73.9 Chronic hepatitis, unspecified (principal); R79.89 Other specified abnormal findings of blood chemistry
CPT/HCPCS: 76700

== ENCOUNTER → 2022-01-05 12:07 | Outpatient (CLI) | payer MEDICARE, SELFPAY ==
[2022-01-05 13:00] LABS: INR 1.1 (0.9-1.3); Prothrombin Time 11.7 SECONDS (10.1-12.7)
[2022-01-05 13:07] LABS: Iron 122 ug/dL (37-170)
[2022-01-05 13:10] LABS: Alanine Aminotransferase 32 IU/L (<35); Albumin 4.7 g/dL (3.5-5.0); Albumin Globulin Ratio 1.5 (1.0-2.8); Alkaline Phosphatase 73 U/L (38-126); Aspartate Aminotransferase 34 IU/L (14-36); Bilirubin Total 0.5 mg/dL (0.2-1.3); Bilirubin Unconjugated 0.5 mg/dL (0.0-1.1); Creatine Kinase 70 U/L (30-135); Globulin 3.1 g/dL (1.7-4.1); HEMOLYSIS < 15 (0-50); Total Protein 7.8 g/dL (6.3-8.2)
[2022-01-05 13:16] LABS: HEMOLYSIS 55 (0-50)
[2022-01-05 13:17] LABS: Percent Iron Saturation 32 % (15-50); Total Iron Binding Capacity 386 ug/dL (265-497); Transferrin 305 mg/dL (206-381)
[2022-01-05 13:38] LABS: TSH w/ Reflex to FT4 1.94 uIU/mL (0.47-4.68)
[2022-01-05 13:55] LABS: Hep C Virus Ab w/Reflex Quant NEGATIVE s/c (NEGATIVE)
[2022-01-06 06:24] LABS: Ceruloplasmin 32.4 mg/dL (19.0-39.0)
[2022-01-06 17:39] LABS: Deamidated Gliadin IgA 6 units (0-19); Deamidated Gliadin IgG 2 units (0-19); IGA 176 mg/dL (87-352); t-Transglutaminase IgA <2 U/mL (0-3)
[2022-01-08 15:07] LABS: Smooth Muscle Antibody 12 Units (0-19)
[2022-01-08 19:28] LABS: ANA Screen, IFA Positive (.)
== END ==
PROVIDERS: Family Provider Internal Medicine; PCP Internal Medicine; Referring Provider Internal Medicine; Visit Provider Internal Medicine
DX: K73.9 Chronic hepatitis, unspecified (principal)
CPT/HCPCS: 36415; 80076; 82390; 82550; 82784; 83516; 83540; 83550; 84443; 85610; 86038; 86255; 86803

== ENCOUNTER → 2022-08-13 13:48 | Outpatient (CLI) | payer MEDICARE, SELFPAY ==
[2022-08-13 16:24] LABS: Alanine Aminotransferase 38 IU/L (<35); Albumin 4.5 g/dL (3.5-5.0); Albumin Globulin Ratio 1.3 (1.0-2.8); Alkaline Phosphatase 100 U/L (38-126); Aspartate Aminotransferase 39 IU/L (14-36); Bilirubin Total 0.5 mg/dL (0.2-1.3); Bilirubin Unconjugated 0.5 mg/dL (0.0-1.1); Globulin 3.6 g/dL (1.7-4.1); HEMOLYSIS < 15 (0-50); Total Protein 8.1 g/dL (6.3-8.2)
[2022-08-15 14:42] LABS: Albumin 3.9 g/dL (2.9-4.4); Alpha-1-Globulin 0.3 g/dL (0.0-0.4); Alpha-2-Globulin 0.9 g/dL (0.4-1.0); Gamma Globulin 1.2 g/dL (0.4-1.8); Globulin Total 3.5 g/dL (2.2-3.9); Protein, Total 7.4 g/dL (6.0-8.5)
== END ==
PROVIDERS: Family Provider Internal Medicine; PCP Internal Medicine; Referring Provider Pain Medicine Pain Medicine; Visit Provider Pain Medicine Pain Medicine
DX: G89.4 Chronic pain syndrome (principal); M54.50 Low back pain, unspecified
CPT/HCPCS: 36415; 80076; 84155; 84165

== ENCOUNTER → 2022-12-06 14:35 | Outpatient (CLI) | payer MEDICARE, SELFPAY ==
[2022-12-06 15:11] LABS: Add Manual Diff / Slide Review NO; Basophils Absolute Auto 100 /uL (0-100); Basophils Percent Auto 0.8 % (0-2); Eosinophils Absolute Auto 200 /uL (0-450); Eosinophils Percent Auto 3.4 % (2-4); Hematocrit 41.9 % (36-46); Hemoglobin 14.5 g/dL (12.0-16.0); Lymphocytes Absolute Auto 2200 /uL (1100-4500); Lymphocytes Percent Auto 34.4 % (25-40); Mean Corpuscular HGB Conc 34.5 % (30-36); Mean Corpuscular Hemoglobin 33.1 PG (26-34); Mean Corpuscular Volume 95.9 fL (80-100); Monocytes Absolute Auto 700 /uL (0-900); Monocytes Percent Auto 11.2 % (3-14); Neutrophils Absolute Auto 3200 /uL (1500-7000); Neutrophils Percent Auto 50.2 % (50-75); Platelet Count 287 X10^3/uL (150-400); Red Blood Cell Count 4.37 X10^6/uL (4.0-5.2); Red Cell Distribution Width 14.5 % (11.6-14.8); White Blood Cell Count 6.3 X10^3/uL (4.5-11.0)
[2022-12-06 15:35] LABS: Hemoglobin A1C% w Est Avg Glu 5.5 % (4.0-6.0)
[2022-12-06 15:51] LABS: BUN Creatinine Ratio 21.7 (6-22); Blood Urea Nitrogen 13 mg/dL (7-17); Calcium 9.2 mg/dL (8.4-10.2); Carbon Dioxide 32 mmol/L (22-32); Chloride 99 mmol/L (98-107); Estimated Glomerular Filt Rate > 60 mL/min (>60); Glucose 96 mg/dL (80-110); HEMOLYSIS < 15 (0-50); Potassium 4.5 mmol/L (3.4-5.1); Sodium 139 mmol/L (137-145)
== END ==
PROVIDERS: Family Provider Internal Medicine; PCP Internal Medicine; Referring Provider Orthopaedic Surgery Foot and Ankle Surgery; Visit Provider Orthopaedic Surgery Foot and Ankle Surgery
DX: Z01.818 Encounter for other preprocedural examination; R73.9 Hyperglycemia, unspecified; Z01.812 Encounter for preprocedural laboratory examination
CPT/HCPCS: 36415; 80048; 83036; 85025

== ENCOUNTER → 2022-12-07 11:17 | Outpatient (CLI) | payer MEDICARE, SELFPAY | PROVIDERS: Family Provider Internal Medicine; PCP Internal Medicine; Referring Provider Orthopaedic Surgery Foot and Ankle Surgery; Visit Provider Orthopaedic Surgery Foot and Ankle Surgery | DX: Z01.818 Encounter for other preprocedural examination (principal) | CPT/HCPCS: 93005; 93010 ==

== ENCOUNTER 2023-04-11 16:00 | Outpatient (RCR) | payer MEDICARE, SELFPAY ==
--- NOTE | 2023-01-08 13:01 | PT.OIE ---
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) Insomnia (05/27/15) Osteoporosis Past Surgical History (Last Reviewed 12/05/21 @ 16:36 by Cleveland Driver MD) History of knee replacement Previous back surgery S/P insertion of intrathecal pump Visit Care Team Role Provider Type Cleveland Driver MD Family Provider Physician Primary Care Provider Specialty: Internal Medicine Address: [address] [place] [address], [address], [address] Email: [email or web address] Linda Suh MD Attending Provider Physician Referring Provider Specialty: Orthopedics Orthopedic Surgery Address: [address] [place] [address], [address] Email: [email or web address] Therapy Initial Evaluation PT-OP-A Visit Information Start: 01/04/23 12:55 Freq: Status: Active Protocol: Document 01/08/23 09:54 AMB (Rec: 01/08/23 10:05 AMB [id number]) Out-Patient Physical Therapy Visit Information Visit Information Visit Type Initial Evaluation Visit Start Time 09:45 Visit Stop Time 10:30 Total Visit Minutes 45 Visit Number 1 PT-OP-B Current Condition Start: 01/04/23 12:55 Freq: Status: Active Protocol: Document 01/08/23 09:54 AMB (Rec: 01/08/23 10:05 AMB [id number]) Current Condition History of Current Condition Onset Date June 2022 Current Complaints partial knee replacement History of Current Condition Wants to be able to walk 3 miles. Gardening. Lives in a single level home with , no steps to enter, has a walker (4WW, and a standard walk). 3/10 in seated, increases with moving from sit to stand and walking. Currently walking only about a couple hundred feet due to the pain. PT-OP-C Subjective Start: 01/04/23 12:55 Freq: Status: Active Protocol: Document 01/11/23 08:58 AMB (Rec: 01/11/23 09:02 AMB [id number]) Patient Questionnaires Lower Extremity Functional Scale LEFS Score 15 LEFS Impairment 80 to 99% Impaired (Score 1-16 ) OP-PT Pain Assessment Comments Pain Comments 9/10 knee pain PT-OP-G Mobility & Gait Start: 01/04/23 12:55 Freq: Status: Active Protocol: Document 01/08/23 09:45 AMB (Rec: 01/11/23 10:53 AMB [id number]) OP Gait Assessment Comments Gait Comments Pt with antalgic gait, difficulty flexing knee for appropriate gait patterning, wearing knee brace butnot ambulating with assistive device. PT-OP-K Range of Motion Start: 01/04/23 12:55 Freq: Status: Active Protocol: Document 01/08/23 10:05 AMB (Rec: 01/08/23 10:14 AMB [id number]) Knee Goniometric Range of Motion Knee Right Flexion Active (degrees) 126 Extension Passive (degrees) 0 Left Patient Position Supine Flexion Active (degrees) 96 Extension Passive (degrees) 0 PT-OP-M Strength Start: 01/04/23 12:55 Freq: Status: Active Protocol: Document 01/08/23 10:05 AMB (Rec: 01/08/23 10:14 AMB [id number]) Knee Strength Knee Manual Muscle Testing Right Flexion (S2) 4+ Good+ Extension (L3) 4+ Good+ Left Flexion (S2) 3 Fair Extension (L3) 3 Fair PT-OP-Q Treatments Start: 01/04/23 12:55 Freq: Status: Active Protocol: Document 01/08/23 09:45 AMB (Rec: 01/11/23 10:53 AMB [id number]) Therapeutic Exercises Supine Exercises heel slides Side left Reps/Minutes 10 quad sets Side left Reps/Minutes 10 ankle pumps Side left Reps/Minutes 10 PT-OP-T Assessment and Plan Start: 01/04/23 12:55 Freq: Status: Active Protocol: Document 01/08/23 09:45 AMB (Rec: 01/11/23 11:02 AMB [id number]) Physical Therapy Assessment Rehab Potential Rehabilitation Potential Good Evaluation Complexity Number of Personal Factors/Comorbidities 3 or More Number of Body Systems Impaired 3 Clinical Presentation at Evaluation Stable Impairments Impairments Activity Tolerance,Functional Activities,Gait,ROM,Strength Goals Gait Short Term Goal (STG) Lakshmi will ambulate for 5 minutes without antalgic gait without AD. STG Duration 5 weeks Recycler Goal (LTG) Lakshmi will ambulate without AD over uneven surfaces with knee pain of 3/10 or less. LTG Duration 10 weeks Strength Short Term Goal (STG) Lakshmi will improve her knee strength so that she can ascend stairs with an alternating gait pattern. STG Duration 5 weeks Recycler Goal (LTG) Lakshmi will improve her knee strength so that she can perform a partial squat for gardening purposes. LTG Duration 10 weeks ROM Short Term Goal (STG) Lakshmi will improve her ROM to at least 5-100 degrees passively. STG Duration 5 weeks Recycler Goal (LTG) Lakshmi will improve her active ROM to 0-120. LTG Duration 10 weeks Assessment Summary Assessment Lakshmi attends PT 2 days before L partial knee replacement. She attends with significantly reduced knee flexion, swelling, weakness and pain. She did have a R partial replacement years ago and experienced significant swelling post op with that. She does have appropriate assistive devices and support at home. Given standard post op exercises to start with at home before being seen for re- eval next week. Lakshmi will benefit from gait, strength, ROM training. Physical Therapy Plan Frequency and Duration Frequency of Treatment 2x/Week Duration of treatment (weeks) 10 Plan of Care Start Date 01/08/23 Plan of Care End Date 03/22/23 Therapeutic Interventions Therapeutic Interventions Home Exercise Program,Manual Therapy,Neuromuscular Re- education,Self-Care/Home Management,Therapeutic Activities,Therapeutic Exercises Next Visit Focus/Plan Next Note Type Re-Evaluation Next Visit Plan Re-eval post op. Start with recumbant elliptical review quad sets, heel slides progress HEP as tolerated, evaluate post op swelling as this was problematic s/p prior surgery.
--- NOTE | 2023-01-08 13:02 | PT.OPPOC ---
Physical, Occupational & Speech Therapy At [facility] Current Diagnoses Unilateral primary osteoarthritis, left knee (01/08/23) Other abnormalities of gait and mobility (01/08/23) Visit Care Team Role Provider Type Cleveland Driver MD Family Provider Physician Primary Care Provider Specialty: Internal Medicine Address: [address] [place] [address], [address], [address] Email: [email or web address] Linda Suh MD Attending Provider Physician Referring Provider Specialty: Orthopedics Orthopedic Surgery Address: [address] [place] [address], [address] Email: [email or web address] Plan Of Care PT-OP-T Assessment and Plan Start: 01/04/23 12:55 Freq: Status: Active Protocol: Document 01/08/23 09:45 AMB (Rec: 01/11/23 11:02 AMB [id number]) Physical Therapy Assessment Rehab Potential Rehabilitation Potential Good Evaluation Complexity Number of Personal Factors/Comorbidities 3 or More Number of Body Systems Impaired 3 Clinical Presentation at Evaluation Stable Impairments Impairments Activity Tolerance,Functional Activities,Gait,ROM,Strength Goals Gait Short Term Goal (STG) Lakshmi will ambulate for 5 minutes without antalgic gait without AD. STG Duration 5 weeks Sandfill Operator Surface Goal (LTG) Lakshmi will ambulate without AD over uneven surfaces with knee pain of 3/10 or less. LTG Duration 10 weeks Strength Short Term Goal (STG) Lakshmi will improve her knee strength so that she can ascend stairs with an alternating gait pattern. STG Duration 5 weeks [facility] Goal (LTG) Lakshmi will improve her knee strength so that she can perform a partial squat for gardening purposes. LTG Duration 10 weeks ROM Short Term Goal (STG) Lakshmi will improve her ROM to at least 5-100 degrees passively. STG Duration 5 weeks [facility] Goal (LTG) Lakshmi will improve her active ROM to 0-120. LTG Duration 10 weeks Assessment Summary Assessment Lakshmi attends PT 2 days before L partial knee replacement. She attends with significantly reduced knee flexion, swelling, weakness and pain. She did have a R partial replacement years ago and experienced significant swelling post op with that. She does have appropriate assistive devices and support at home. Given standard post op exercises to start with at home before being seen for re- eval next week. Lakshmi will benefit from gait, strength, ROM training. Physical Therapy Plan Frequency and Duration Frequency of Treatment 2x/Week Duration of treatment (weeks) 10 Plan of Care Start Date 01/08/23 Plan of Care End Date 03/22/23 Therapeutic Interventions Therapeutic Interventions Home Exercise Program,Manual Therapy,Neuromuscular Re- education,Self-Care/Home Management,Therapeutic Activities,Therapeutic Exercises Next Visit Focus/Plan Next Note Type Re-Evaluation Next Visit Plan Re-eval post op. Start with recumbant elliptical review quad sets, heel slides progress HEP as tolerated, evaluate post op swelling as this was problematic s/p prior surgery. Plan of Care Dates Plan of Care Start Date 01/08/23 Plan of Care End Date 03/22/23 Electronically Signed by: Naya Ling, PT 01/11/23 [id number] If you are in agreement with this Plan of Care, please return a signed and dated copy. I have reviewed this Plan of Care and certify that the skilled therapy services above are required to meet the patient?s needs. Physician Signature Date Printed Name and Credentials Clinical Instructor Signature Printed Name and Credentials
--- NOTE | 2023-01-17 12:14 | PT.OTN ---
Current Diagnoses Unilateral primary osteoarthritis, left knee (01/17/23) Other abnormalities of gait and mobility (01/17/23) Physical Therapy Treatment Note PT-OP-A Visit Information Start: 01/04/23 12:55 Freq: Status: Active Protocol: Document 01/17/23 11:16 SAK (Rec: 01/17/23 12:14 SAK [id number]) Out-Patient Physical Therapy Visit Information Visit Information Visit Type Treatment Note Visit Start Time 11:17 Visit Stop Time 12:00 Total Visit Minutes 43 Visit Number 2 PT-OP-B Current Condition Start: 01/04/23 12:55 Freq: Status: Active Protocol: Document 01/17/23 11:16 SAK (Rec: 01/17/23 12:14 SAK [id number]) Current Condition History of Current Condition Onset Date June 2022 Current Complaints partial knee replacement History of Current Condition Wants to be able to walk 3 miles. Gardening. Lives in a single level home with , no steps to enter, has a walker (4WW, and a standard walk). 3/10 in seated, increases with moving from sit to stand and walking. Currently walking only about a couple hundred feet due to the pain. PT-OP-C Subjective Start: 01/04/23 12:55 Freq: Status: Active Protocol: Document 01/17/23 11:16 SAK (Rec: 01/17/23 12:14 SAK [id number]) OP-PT Subjective Patient Comments Patient Comments Reports high pain level;feels like I want to throw up. Took pain medication at 10:00. Sees surgeon (Vikash) next week for follow-up January 23. Doing HEP when I think about it. Wearing compression stocking as recommended by PT at pre-op PT-OP-G Mobility & Gait Start: 01/04/23 12:55 Freq: Status: Active Protocol: Document 01/08/23 09:45 AMB (Rec: 01/11/23 10:53 AMB [id number]) OP Gait Assessment Comments Gait Comments Pt with antalgic gait, difficulty flexing knee for appropriate gait patterning, wearing knee brace butnot ambulating with assistive device. PT-OP-K Range of Motion Start: 01/04/23 12:55 Freq: Status: Active Protocol: Document 01/08/23 10:05 AMB (Rec: 01/08/23 10:14 AMB [id number]) Knee Goniometric Range of Motion Knee Right Flexion Active (degrees) 126 Extension Passive (degrees) 0 Left Patient Position Supine Flexion Active (degrees) 96 Extension Passive (degrees) 0 PT-OP-M Strength Start: 01/04/23 12:55 Freq: Status: Active Protocol: Document 01/08/23 10:05 AMB (Rec: 01/08/23 10:14 AMB [id number]) Knee Strength Knee Manual Muscle Testing Right Flexion (S2) 4+ Good+ Extension (L3) 4+ Good+ Left Flexion (S2) 3 Fair Extension (L3) 3 Fair PT-OP-Q Treatments Start: 01/04/23 12:55 Freq: Status: Active Protocol: Document 01/17/23 11:16 SAK (Rec: 01/17/23 12:14 SAK [id number]) Cardio Equipment Recumbent Elliptical ([employer]) Duration (Minutes) 6 Resistance 1 Seat Position 9 Therapeutic Exercises Supine Exercises SAQ Reps/Minutes 10x heel slides Side left Reps/Minutes 10 Comments 55 cm ball quad sets Side bilateral Reps/Minutes 10 ankle pumps Side left Reps/Minutes 10 Sitting Exercises LAQ Reps/Minutes 10x Comments PT assist end range, eccentric lowering knee flex Reps/Minutes 10x Comments slider sheet Standing Exercises heel/toe raise Reps/Minutes 10x ea step touch Side left Reps/Minutes 10x Gait Training Gait Activity 2 Description level surface Device Used FWW Level of Assistance SBA, cues Surface firm Distance/Duration 30ft, 20ft, 50ft Treatment Focus cues for upright posture, heel strike, knee flex with swingdec limp Manual Therapy Treatment Soft Tissue Mobilization 1 Body Location left knee Mobilization Type Manual Lymphatic Drainage Intensity/Depth Superficial Body Position Hooklying Self-Care/Home Management Treatment Education Patient Education Home Exercise Program,Pain Management,Posture PT-OP-R Modalities Start: 01/04/23 12:55 Freq: Status: Active Protocol: Document 01/17/23 11:16 SAK (Rec: 01/17/23 12:14 SAK [id number]) Hot Pack/Cold Pack Treatment Cold Pack Comments pt to do at home PT-OP-T Assessment and Plan Start: 01/04/23 12:55 Freq: Status: Active Protocol: Document 01/17/23 11:16 SAK (Rec: 01/17/23 12:14 SAK [id number]) Physical Therapy Assessment Impairments Impairments Activity Tolerance,Functional Activities,Gait,ROM,Strength Goals Gait Short Term Goal (STG) Lakshmi will ambulate for 5 minutes without antalgic gait without AD. STG Duration 5 weeks Lobby Porter Goal (LTG) Lakshmi will ambulate without AD over uneven surfaces with knee pain of 3/10 or less. LTG Duration 10 weeks Strength Short Term Goal (STG) Lakshmi will improve her knee strength so that she can ascend stairs with an alternating gait pattern. STG Duration 5 weeks Lobby Porter Goal (LTG) Lakshmi will improve her knee strength so that she can perform a partial squat for gardening purposes. LTG Duration 10 weeks ROM Short Term Goal (STG) Lakshmi will improve her ROM to at least 5-100 degrees passively. STG Duration 5 weeks Usp Goal (LTG) Lakshmi will improve her active ROM to 0-120. LTG Duration 10 weeks Assessment Summary Assessment Patient reporting high pain level, low tolerance for activity and exercise. AROM left knee 18-85, PROM 10-90. Started with recumbant elliptical, reviewed HEP, added 2 standing ex, provided gentle MLD left LE for edema reduction. Pt. post-op dressing intact, mod swelling but no signs or symptoms of infection. Patient wearing thigh juan compression stocking with good fit. Significant limp with gait with FWW, cues for improved gait including heelstrike, inc flexion with swing phase of gait. Will benefit from PT for post op rehab unilateral left TKA. Physical Therapy Plan Frequency and Duration Frequency of Treatment 2x/Week Duration of treatment (weeks) 10 Plan of Care Start Date 01/08/23 Plan of Care End Date 03/22/23 Therapeutic Interventions Therapeutic Interventions Home Exercise Program,Manual Therapy,Neuromuscular Re- education,Self-Care/Home Management,Therapeutic Activities,Therapeutic Exercises Next Visit Focus/Plan Next Note Type Treatment Note Next Visit Plan Start with recumbant elliptical, progress ther ex for ROM, strengthening. Gait training with FWW, progressing to cane when indicated. Modalities and manual therapy PRN.
--- NOTE | 2023-01-23 16:02 | PT.OTN ---
Current Diagnoses Unilateral primary osteoarthritis, left knee (01/23/23) Other abnormalities of gait and mobility (01/23/23) Physical Therapy Treatment Note PT-OP-A Visit Information Start: 01/04/23 12:55 Freq: Status: Active Protocol: Document 01/23/23 14:51 SAK (Rec: 01/23/23 15:59 SAK [id number]) Out-Patient Physical Therapy Visit Information Visit Information Visit Type Treatment Note Visit Start Time 15:00 Visit Stop Time 15:52 Total Visit Minutes 52 Visit Number 3 PT-OP-B Current Condition Start: 01/04/23 12:55 Freq: Status: Active Protocol: Document 01/23/23 14:51 SAK (Rec: 01/23/23 15:59 SAK [id number]) Current Condition History of Current Condition Onset Date June 2022 Current Complaints partial knee replacement History of Current Condition Wants to be able to walk 3 miles. Gardening. Lives in a single level home with , no steps to enter, has a walker (4WW, and a standard walk). 3/10 in seated, increases with moving from sit to stand and walking. Currently walking only about a couple hundred feet due to the pain. PT-OP-C Subjective Start: 01/04/23 12:55 Freq: Status: Active Protocol: Document 01/23/23 14:51 SAK (Rec: 01/23/23 15:59 SAK [id number]) OP-PT Subjective Patient Comments Patient Comments Feeling a little better though not very excited about doing his exercises Hasn't been wearing compression stockings. Has to really focus on not letting foot roll in during walking. PT-OP-G Mobility & Gait Start: 01/04/23 12:55 Freq: Status: Active Protocol: Document 01/08/23 09:45 AMB (Rec: 01/11/23 10:53 AMB [id number]) OP Gait Assessment Comments Gait Comments Pt with antalgic gait, difficulty flexing knee for appropriate gait patterning, wearing knee brace butnot ambulating with assistive device. PT-OP-K Range of Motion Start: 01/04/23 12:55 Freq: Status: Active Protocol: Document 01/08/23 10:05 AMB (Rec: 01/08/23 10:14 AMB [id number]) Knee Goniometric Range of Motion Knee Right Flexion Active (degrees) 126 Extension Passive (degrees) 0 Left Patient Position Supine Flexion Active (degrees) 96 Extension Passive (degrees) 0 PT-OP-M Strength Start: 01/04/23 12:55 Freq: Status: Active Protocol: Document 01/08/23 10:05 AMB (Rec: 01/08/23 10:14 AMB [id number]) Knee Strength Knee Manual Muscle Testing Right Flexion (S2) 4+ Good+ Extension (L3) 4+ Good+ Left Flexion (S2) 3 Fair Extension (L3) 3 Fair PT-OP-Q Treatments Start: 01/04/23 12:55 Freq: Status: Active Protocol: Document 01/23/23 14:51 [facility] (Rec: 01/23/23 15:59 SAK [id number]) Cardio Equipment Recumbent Elliptical ([employer]) Duration (Minutes) 10 Resistance 1 Seat Position 8 Gym Equipment Shuttle Recovery Bilateral Squats Resistance 37 Shuttle Recovery Platform Stable Reps/Time 10 Therapeutic Exercises Standing Exercises step touch Side left Reps/Minutes 10x Gait Training Gait Activity 1 Description gait with SPC Device Used SPC Level of Assistance CG-SBA, cues Surface firm Distance/Duration 40'x2 Treatment Focus heelstrike, inc knee ext in stance PT-OP-R Modalities Start: 01/04/23 12:55 Freq: Status: Active Protocol: Document 01/23/23 14:51 [facility] (Rec: 01/23/23 15:59 [facility] [id number]) Hot Pack/Cold Pack Treatment Cold Pack Location left knee Patient Position Hooklying Treatment Duration (minutes) 10 Patient Tolerance Good PT-OP-T Assessment and Plan Start: 01/04/23 12:55 Freq: Status: Active Protocol: Document 01/23/23 14:51 [facility] (Rec: 01/23/23 15:59 [facility] [id number]) Physical Therapy Assessment Impairments Impairments Activity Tolerance,Functional Activities,Gait,ROM,Strength Goals Gait Short Term Goal (STG) Lakshmi will ambulate for 5 minutes without antalgic gait without AD. STG Duration 5 weeks Half-Way Goal (LTG) Lakshmi will ambulate without AD over uneven surfaces with knee pain of 3/10 or less. LTG Duration 10 weeks Strength Short Term Goal (STG) Lakshmi will improve her knee strength so that she can ascend stairs with an alternating gait pattern. STG Duration 5 weeks Gang Mower Operator Goal (LTG) Lakshmi will improve her knee strength so that she can perform a partial squat for gardening purposes. LTG Duration 10 weeks ROM Short Term Goal (STG) Lakshmi will improve her ROM to at least 5-100 degrees passively. STG Duration 5 weeks Half-Way Goal (LTG) Lakshmi will improve her active ROM to 0-120. LTG Duration 10 weeks Assessment Summary Assessment Improved pain control, L knee AROM 15-90, PROM 5-95. Gait training with SPC with good tolerance, cues for heelstrike , inc knee extension in stance . Physical Therapy Plan Frequency and Duration Frequency of Treatment 2x/Week Duration of treatment (weeks) 10 Plan of Care Start Date 01/08/23 Plan of Care End Date 03/22/23 Therapeutic Interventions Therapeutic Interventions Home Exercise Program,Manual Therapy,Neuromuscular Re- education,Self-Care/Home Management,Therapeutic Activities,Therapeutic Exercises Next Visit Focus/Plan Next Note Type Treatment Note Next Visit Plan Continue TKA rehab for ROM, strengthening, gait trainin.
--- NOTE | 2023-01-31 11:29 | PT.OTN ---
Current Diagnoses Unilateral primary osteoarthritis, left knee (01/31/23) Other abnormalities of gait and mobility (01/31/23) Physical Therapy Treatment Note PT-OP-A Visit Information Start: 01/04/23 12:55 Freq: Status: Active Protocol: Document 01/31/23 10:49 [facility] (Rec: 01/31/23 11:29 [facility] [id number]) Out-Patient Physical Therapy Visit Information Visit Information Visit Type Treatment Note Visit Start Time 10:49 Visit Stop Time 11:30 Total Visit Minutes 41 Visit Number 4 Number of LIGHT OUT EXAMINER Visits 0 PT-OP-B Current Condition Start: 01/04/23 12:55 Freq: Status: Active Protocol: Document 01/29/23 11:17 SAK (Rec: 01/29/23 12:00 SAK [id number]) Current Condition History of Current Condition Onset Date June 2022 Current Complaints partial knee replacement History of Current Condition Wants to be able to walk 3 miles. Gardening. Lives in a single level home with , no steps to enter, has a walker (4WW, and a standard walk). 3/10 in seated, increases with moving from sit to stand and walking. Currently walking only about a couple hundred feet due to the pain. PT-OP-C Subjective Start: 01/04/23 12:55 Freq: Status: Active Protocol: Document 01/31/23 10:49 [facility] (Rec: 01/31/23 11:29 [facility] [id number]) OP-PT Subjective Patient Comments Patient Comments Pt called surgeon office about red raised bumps and will see MD tomorrow. She was putting vaseline on it. She has been wearing her stocking w/ papertowel so it doesn't rub on stocking. PT-OP-G Mobility & Gait Start: 01/04/23 12:55 Freq: Status: Active Protocol: Document 01/08/23 09:45 AMB (Rec: 01/11/23 10:53 AMB [id number]) OP Gait Assessment Comments Gait Comments Pt with antalgic gait, difficulty flexing knee for appropriate gait patterning, wearing knee brace butnot ambulating with assistive device. PT-OP-K Range of Motion Start: 01/04/23 12:55 Freq: Status: Active Protocol: Document 01/08/23 10:05 AMB (Rec: 01/08/23 10:14 AMB [id number]) Knee Goniometric Range of Motion Knee Right Flexion Active (degrees) 126 Extension Passive (degrees) 0 Left Patient Position Supine Flexion Active (degrees) 96 Extension Passive (degrees) 0 PT-OP-M Strength Start: 01/04/23 12:55 Freq: Status: Active Protocol: Document 01/08/23 10:05 AMB (Rec: 01/08/23 10:14 AMB [id number]) Knee Strength Knee Manual Muscle Testing Right Flexion (S2) 4+ Good+ Extension (L3) 4+ Good+ Left Flexion (S2) 3 Fair Extension (L3) 3 Fair PT-OP-Q Treatments Start: 01/04/23 12:55 Freq: Status: Active Protocol: Document 01/31/23 10:49 [facility] (Rec: 01/31/23 11:29 [facility] [id number]) Cardio Equipment Recumbent Elliptical ([employer]) Duration (Minutes) 8 Resistance 1 Seat Position 8-7 Gym Equipment Shuttle Recovery Unilateral Squats Details L Resistance 25 Shuttle Recovery Platform Stable Reps/Time 10 Bilateral Squats Resistance 50 Shuttle Recovery Platform Stable Reps/Time 15 Therapeutic Exercises Supine Exercises stretch Supine Exercise Name PT assisted L HS stretch w/APs Reps/Minutes 2 min SLR Side left heel slides Supine Exercise Name knee flex w/ball Side bilateral Reps/Minutes 5 sec x10 Standing Exercises step up Side left Equipment Used 4 in step w/rail prn Reps/Minutes 10 sit to stand Side bilateral Reps/Minutes 2 Comments cues for LLE to be more under her squat Standing Exercise Name mini at rail Side bilateral Reps/Minutes 10 heel/toe raise Standing Exercise Name DL heel raise to SL L eccentric lower Reps/Minutes 10 PT-OP-R Modalities Start: 01/04/23 12:55 Freq: Status: Active Protocol: Document 01/23/23 14:51 SAK (Rec: 01/23/23 15:59 SAK [id number]) Hot Pack/Cold Pack Treatment Cold Pack Location left knee Patient Position Hooklying Treatment Duration (minutes) 10 Patient Tolerance Good PT-OP-T Assessment and Plan Start: 01/04/23 12:55 Freq: Status: Active Protocol: Document 01/31/23 10:49 [facility] (Rec: 01/31/23 11:29 [facility] [id number]) Physical Therapy Assessment Goals Gait Short Term Goal (STG) Lakshmi will ambulate for 5 minutes without antalgic gait without AD. STG Duration 5 weeks Senior Care Goal (LTG) Lakshmi will ambulate without AD over uneven surfaces with knee pain of 3/10 or less. LTG Duration 10 weeks Strength Short Term Goal (STG) Lakshmi will improve her knee strength so that she can ascend stairs with an alternating gait pattern. STG Duration 5 weeks Associate Product Manager Goal (LTG) Lakshmi will improve her knee strength so that she can perform a partial squat for gardening purposes. LTG Duration 10 weeks ROM Short Term Goal (STG) Lakshmi will improve her ROM to at least 5-100 degrees passively. STG Duration 5 weeks Associate Product Manager Goal (LTG) Lakshmi will improve her active ROM to 0-120. LTG Duration 10 weeks Assessment Summary Assessment Pt did well with exercises today and tolerated ROM well. AROM at start was 5-92 deg. She did improve w/SLR ROM and ability w/repetition. Physical Therapy Plan Frequency and Duration Frequency of Treatment 2x/Week Duration of treatment (weeks) 10 Plan of Care Start Date 01/08/23 Plan of Care End Date 03/22/23 Next Visit Focus/Plan Next Note Type Treatment Note Next Visit Plan Continue TKA rehab for ROM, strengthening, gait training.
--- NOTE | 2023-02-05 15:56 | PT.OTN ---
Current Diagnoses Unilateral primary osteoarthritis, left knee (02/05/23) Other abnormalities of gait and mobility (02/05/23) Physical Therapy Treatment Note PT-OP-A Visit Information Start: 01/04/23 12:55 Freq: Status: Active Protocol: Document 02/05/23 11:12 SAK (Rec: 02/05/23 12:01 SAK [id number]) Out-Patient Physical Therapy Visit Information Visit Information Visit Type Treatment Note Visit Start Time 11:20 Visit Stop Time 12:10 Total Visit Minutes 50 Visit Number 6 Number of PSYCHOLOGISTS Visits 0 PT-OP-B Current Condition Start: 01/04/23 12:55 Freq: Status: Active Protocol: Document 02/05/23 11:12 SAK (Rec: 02/05/23 12:01 SAK [id number]) Current Condition History of Current Condition Onset Date June 2022 Current Complaints partial knee replacement History of Current Condition Wants to be able to walk 3 miles. Gardening. Lives in a single level home with , no steps to enter, has a walker (4WW, and a standard walk). 3/10 in seated, increases with moving from sit to stand and walking. Currently walking only about a couple hundred feet due to the pain. PT-OP-C Subjective Start: 01/04/23 12:55 Freq: Status: Active Protocol: Document 02/05/23 11:12 SAK (Rec: 02/05/23 12:01 SAK [id number]) OP-PT Subjective Patient Comments Patient Comments Reports doctor wasn't impressed with the bumps on her leg. Has used Benadryl cream and afterbite cream. Compliant to HEP. PT-OP-G Mobility & Gait Start: 01/04/23 12:55 Freq: Status: Active Protocol: Document 01/08/23 09:45 AMB (Rec: 01/11/23 10:53 AMB [id number]) OP Gait Assessment Comments Gait Comments Pt with antalgic gait, difficulty flexing knee for appropriate gait patterning, wearing knee brace butnot ambulating with assistive device. PT-OP-K Range of Motion Start: 01/04/23 12:55 Freq: Status: Active Protocol: Document 01/08/23 10:05 AMB (Rec: 01/08/23 10:14 AMB [id number]) Knee Goniometric Range of Motion Knee Right Flexion Active (degrees) 126 Extension Passive (degrees) 0 Left Patient Position Supine Flexion Active (degrees) 96 Extension Passive (degrees) 0 PT-OP-M Strength Start: 01/04/23 12:55 Freq: Status: Active Protocol: Document 01/08/23 10:05 AMB (Rec: 01/08/23 10:14 AMB [id number]) Knee Strength Knee Manual Muscle Testing Right Flexion (S2) 4+ Good+ Extension (L3) 4+ Good+ Left Flexion (S2) 3 Fair Extension (L3) 3 Fair PT-OP-Q Treatments Start: 01/04/23 12:55 Freq: Status: Active Protocol: Document 02/05/23 11:12 SAK (Rec: 02/05/23 12:01 SAK [id number]) Cardio Equipment Recumbent Elliptical ([employer]) Duration (Minutes) 8 Resistance 1 Seat Position 8-7 Bicycle (Upright) Duration (Minutes) 10 Resistance 1 Seat Position 6-5 Gym Equipment Shuttle Recovery Unilateral Squats Details L Resistance 25 Shuttle Recovery Platform Stable Reps/Time 10 Bilateral Squats Resistance 50 Shuttle Recovery Platform Stable Reps/Time 10x2 Therapeutic Exercises Supine Exercises stretch Supine Exercise Name PT assisted L HS stretch w/APs Reps/Minutes 2 min SAQ Reps/Minutes 10x heel slides Supine Exercise Name knee flex w/ball Side bilateral Reps/Minutes 5 sec x10 Sitting Exercises LAQ Reps/Minutes 10x Comments PT assist end range, eccentric lowering knee flex Equipment Used L1 TB Reps/Minutes 10x Standing Exercises stair lunge Reps/Minutes 5x5 HC stretch Equipment Used LAKESHIA Reps/Minutes 2x30 heel/toe raise Standing Exercise Name DL heel raise Reps/Minutes 10 Gait Training Gait Activity stairs Description 6 stairs Device Used elena railing Level of Assistance VC Distance/Duration 2x4 stairs Treatment Focus alternating pattern Manual Therapy Treatment Joint Mobilizations patellar mob Direction sup/inf/med/lat Grade II Body Position Supine Reps/Duration 5 min PT-OP-R Modalities Start: 01/04/23 12:55 Freq: Status: Active Protocol: Document 02/05/23 11:12 SAK (Rec: 02/05/23 15:56 SAK [id number]) Hot Pack/Cold Pack Treatment Cold Pack Location left knee Patient Position Hooklying Treatment Duration (minutes) 10 Patient Tolerance Good PT-OP-T Assessment and Plan Start: 01/04/23 12:55 Freq: Status: Active Protocol: Document 02/05/23 11:12 [facility] (Rec: 02/05/23 12:01 [facility] [id number]) Physical Therapy Assessment Goals Gait Short Term Goal (STG) Lakshmi will ambulate for 5 minutes without antalgic gait without AD. STG Duration 5 weeks Provisioning Specialist Goal (LTG) Lakshmi will ambulate without AD over uneven surfaces with knee pain of 3/10 or less. LTG Duration 10 weeks Strength Short Term Goal (STG) Lakshmi will improve her knee strength so that she can ascend stairs with an alternating gait pattern. STG Duration 5 weeks Provisioning Specialist Goal (LTG) Lakshmi will improve her knee strength so that she can perform a partial squat for gardening purposes. LTG Duration 10 weeks ROM Short Term Goal (STG) Lakshmi will improve her ROM to at least 5-100 degrees passively. STG Duration 5 weeks Provisioning Specialist Goal (LTG) Lakshmi will improve her active ROM to 0-120. LTG Duration 10 weeks Assessment Summary Assessment AROM 5-95 PROM 0-100. Needs encouragement to push with ROM ex. Gait improved. Able to ascend and descend 6 stairs with alternating pattern and decreased bike height to 5 today. Physical Therapy Plan Frequency and Duration Frequency of Treatment 2x/Week Duration of treatment (weeks) 10 Plan of Care Start Date 01/08/23 Plan of Care End Date 03/22/23 Therapeutic Interventions Therapeutic Interventions Home Exercise Program,Manual Therapy,Neuromuscular Re- education,Self-Care/Home Management,Therapeutic Activities,Therapeutic Exercises Next Visit Focus/Plan Next Note Type Treatment Note Next Visit Plan Continue ROM and strengthening s/p partial TKA. Gait training on level and stairs.
--- NOTE | 2023-02-07 16:14 | PT.OTN ---
Current Diagnoses Unilateral primary osteoarthritis, left knee (02/07/23) Other abnormalities of gait and mobility (02/07/23) Physical Therapy Treatment Note PT-OP-A Visit Information Start: 01/04/23 12:55 Freq: Status: Active Protocol: Document 02/07/23 11:18 SAK (Rec: 02/07/23 12:02 SAK [id number]) Out-Patient Physical Therapy Visit Information Visit Information Visit Type Treatment Note Visit Start Time 11:18 Visit Stop Time 12:13 Total Visit Minutes 55 Visit Number 7 Number of HYDROCRANE OPERATOR Visits 0 PT-OP-B Current Condition Start: 01/04/23 12:55 Freq: Status: Active Protocol: Document 02/07/23 11:18 SAK (Rec: 02/07/23 12:02 SAK [id number]) Current Condition History of Current Condition Onset Date June 2022 Current Complaints partial knee replacement History of Current Condition Wants to be able to walk 3 miles. Gardening. Lives in a single level home with , no steps to enter, has a walker (4WW, and a standard walk). 3/10 in seated, increases with moving from sit to stand and walking. Currently walking only about a couple hundred feet due to the pain. PT-OP-C Subjective Start: 01/04/23 12:55 Freq: Status: Active Protocol: Document 02/07/23 11:18 SAK (Rec: 02/07/23 12:02 SAK [id number]) OP-PT Subjective Patient Comments Patient Comments Reports very sore today, difficult night, didn't get much sleep last night due to knee pain. PT-OP-G Mobility & Gait Start: 01/04/23 12:55 Freq: Status: Active Protocol: Document 01/08/23 09:45 AMB (Rec: 01/11/23 10:53 AMB [id number]) OP Gait Assessment Comments Gait Comments Pt with antalgic gait, difficulty flexing knee for appropriate gait patterning, wearing knee brace butnot ambulating with assistive device. PT-OP-K Range of Motion Start: 01/04/23 12:55 Freq: Status: Active Protocol: Document 01/08/23 10:05 AMB (Rec: 01/08/23 10:14 AMB [id number]) Knee Goniometric Range of Motion Knee Right Flexion Active (degrees) 126 Extension Passive (degrees) 0 Left Patient Position Supine Flexion Active (degrees) 96 Extension Passive (degrees) 0 PT-OP-M Strength Start: 01/04/23 12:55 Freq: Status: Active Protocol: Document 01/08/23 10:05 AMB (Rec: 01/08/23 10:14 AMB [id number]) Knee Strength Knee Manual Muscle Testing Right Flexion (S2) 4+ Good+ Extension (L3) 4+ Good+ Left Flexion (S2) 3 Fair Extension (L3) 3 Fair PT-OP-Q Treatments Start: 01/04/23 12:55 Freq: Status: Active Protocol: Document 02/07/23 11:18 SAK (Rec: 02/07/23 12:02 SAK [id number]) Cardio Equipment Bicycle (Upright) Duration (Minutes) 10 Resistance 1 Seat Position 5 Gym Equipment Shuttle Recovery Unilateral Squats Details elena Resistance 12 Shuttle Recovery Platform Stable Reps/Time 10 Bilateral Squats Resistance 50 Shuttle Recovery Platform Stable Reps/Time 10x2 Therapeutic Exercises Supine Exercises stretch Supine Exercise Name PT assisted L HS stretch w/APs Reps/Minutes 2 min SAQ Reps/Minutes 10x heel slides Supine Exercise Name knee flex w/ball Side bilateral Reps/Minutes 5 sec x10 Sitting Exercises quad stretch Reps/Minutes 5x5 Comments pt opp LE assisting with stretch into knee flex LAQ Reps/Minutes 10x Comments PT assist end range, eccentric lowering knee flex Equipment Used L1 TB Reps/Minutes 10x Standing Exercises HS curl Reps/Minutes 10x Comments alternating stair lunge Reps/Minutes 10x5 HC stretch Equipment Used LAKESHIA Reps/Minutes 2x30 heel/toe raise Standing Exercise Name DL heel raise Reps/Minutes 10 Gait Training Gait Activity stairs Description 6 stairs Device Used elena railing Level of Assistance VC Distance/Duration 2x4 stairs Treatment Focus alternating pattern Manual Therapy Treatment Joint Mobilizations patellar mob Direction sup/inf/med/lat Grade II Body Position Supine Reps/Duration 3 min PT-OP-R Modalities Start: 01/04/23 12:55 Freq: Status: Active Protocol: Document 02/07/23 11:18 SAK (Rec: 02/07/23 12:02 SAK [id number]) Electric Stimulation Electric Stimulation Interferential Current (IFC) Body Location left knee Duration (Minutes) 10 Intensity 8 Target/Sweep Sweep Patient Position Hooklying Combined With Heat/Cold Cold Pack PT-OP-T Assessment and Plan Start: 01/04/23 12:55 Freq: Status: Active Protocol: Document 02/07/23 11:18 SAK (Rec: 02/07/23 12:02 SAK [id number]) Physical Therapy Assessment Goals Gait Short Term Goal (STG) Lakshmi will ambulate for 5 minutes without antalgic gait without AD. STG Duration 5 weeks Ac/Dc Rewinder Goal (LTG) Lakshmi will ambulate without AD over uneven surfaces with knee pain of 3/10 or less. LTG Duration 10 weeks Strength Short Term Goal (STG) Lakshmi will improve her knee strength so that she can ascend stairs with an alternating gait pattern. STG Duration 5 weeks Ac/Dc Rewinder Goal (LTG) Lakshmi will improve her knee strength so that she can perform a partial squat for gardening purposes. LTG Duration 10 weeks ROM Short Term Goal (STG) Lakshmi will improve her ROM to at least 5-100 degrees passively. STG Duration 5 weeks Retirement Goal (LTG) Lakshmi will improve her active ROM to 0-120. LTG Duration 10 weeks Assessment Summary Assessment AROM 2-97 , PROM 0-105. Good progress. IFES with ice to right knee after treatment. Encouraged to wear compression stocking again left LE for edema management, potential dec pain and improved sleep. Physical Therapy Plan Frequency and Duration Frequency of Treatment 2x/Week Duration of treatment (weeks) 10 Plan of Care Start Date 01/08/23 Plan of Care End Date 03/22/23 Therapeutic Interventions Therapeutic Interventions Home Exercise Program,Manual Therapy,Neuromuscular Re- education,Self-Care/Home Management,Therapeutic Activities,Therapeutic Exercises
--- NOTE | 2023-02-12 12:08 | PT.OTN ---
Current Diagnoses Unilateral primary osteoarthritis, left knee (02/12/23) Other abnormalities of gait and mobility (02/12/23) Physical Therapy Treatment Note PT-OP-A Visit Information Start: 01/04/23 12:55 Freq: Status: Active Protocol: Document 02/12/23 10:05 AMB (Rec: 02/12/23 10:44 AMB [id number]) Out-Patient Physical Therapy Visit Information Visit Information Visit Type Treatment Note Visit Start Time 10:00 Visit Stop Time 10:45 Total Visit Minutes 45 Visit Number 8 Number of STEM MAKER Visits 0 PT-OP-B Current Condition Start: 01/04/23 12:55 Freq: Status: Active Protocol: Document 02/07/23 11:18 SAK (Rec: 02/07/23 12:02 SAK [id number]) Current Condition History of Current Condition Onset Date June 2022 Current Complaints partial knee replacement History of Current Condition Wants to be able to walk 3 miles. Gardening. Lives in a single level home with , no steps to enter, has a walker (4WW, and a standard walk). 3/10 in seated, increases with moving from sit to stand and walking. Currently walking only about a couple hundred feet due to the pain. PT-OP-C Subjective Start: 01/04/23 12:55 Freq: Status: Active Protocol: Document 02/12/23 10:05 AMB (Rec: 02/12/23 10:44 AMB [id number]) OP-PT Subjective Patient Comments Patient Comments Sleep has been better, did get stuck at a restaurant, had to move the leg a little bit after moving from sit to stand . PT-OP-G Mobility & Gait Start: 01/04/23 12:55 Freq: Status: Active Protocol: Document 01/08/23 09:45 AMB (Rec: 01/11/23 10:53 AMB [id number]) OP Gait Assessment Comments Gait Comments Pt with antalgic gait, difficulty flexing knee for appropriate gait patterning, wearing knee brace butnot ambulating with assistive device. PT-OP-K Range of Motion Start: 01/04/23 12:55 Freq: Status: Active Protocol: Document 01/08/23 10:05 AMB (Rec: 01/08/23 10:14 AMB [id number]) Knee Goniometric Range of Motion Knee Right Flexion Active (degrees) 126 Extension Passive (degrees) 0 Left Patient Position Supine Flexion Active (degrees) 96 Extension Passive (degrees) 0 PT-OP-M Strength Start: 01/04/23 12:55 Freq: Status: Active Protocol: Document 01/08/23 10:05 AMB (Rec: 01/08/23 10:14 AMB [id number]) Knee Strength Knee Manual Muscle Testing Right Flexion (S2) 4+ Good+ Extension (L3) 4+ Good+ Left Flexion (S2) 3 Fair Extension (L3) 3 Fair PT-OP-Q Treatments Start: 01/04/23 12:55 Freq: Status: Active Protocol: Document 02/12/23 10:05 AMB (Rec: 02/12/23 10:44 AMB [id number]) Cardio Equipment Bicycle (Upright) Duration (Minutes) 10 Resistance 3 Seat Position 5 Gym Equipment Shuttle Recovery Unilateral Squats Details elena Resistance 12 Shuttle Recovery Platform Stable Reps/Time 10 Bilateral Squats Resistance 50 Shuttle Recovery Platform Stable Reps/Time 10x2 Therapeutic Exercises Supine Exercises SLR Side left Reps/Minutes 2x10 Comments good quad control heel slides Supine Exercise Name knee flex w/ball Side bilateral Reps/Minutes 5 sec x10 Sitting Exercises quad stretch Reps/Minutes 5x5 Comments pt opp LE assisting with stretch into knee flex Manual Therapy Treatment Soft Tissue Mobilization 1 Body Location left knee Mobilization Type Manual Lymphatic Drainage Intensity/Depth Superficial Body Position Hooklying Joint Mobilizations patellar mob Direction sup/inf/med/lat Grade II Body Position Supine Reps/Duration 3 min PT-OP-R Modalities Start: 01/04/23 12:55 Freq: Status: Active Protocol: Document 02/07/23 11:18 SAK (Rec: 02/07/23 12:02 SAK [id number]) Electric Stimulation Electric Stimulation Interferential Current (IFC) Body Location left knee Duration (Minutes) 10 Intensity 8 Target/Sweep Sweep Patient Position Hooklying Combined With Heat/Cold Cold Pack PT-OP-T Assessment and Plan Start: 01/04/23 12:55 Freq: Status: Active Protocol: Document 02/12/23 10:05 AMB (Rec: 02/12/23 10:44 AMB [id number]) Physical Therapy Assessment Goals Gait Short Term Goal (STG) Lakshmi will ambulate for 5 minutes without antalgic gait without AD. STG Duration 5 weeks Group Home Goal (LTG) Lakshmi will ambulate without AD over uneven surfaces with knee pain of 3/10 or less. LTG Duration 10 weeks Strength Short Term Goal (STG) Lakshmi will improve her knee strength so that she can ascend stairs with an alternating gait pattern. STG Duration 5 weeks Group Home Goal (LTG) Lakshmi will improve her knee strength so that she can perform a partial squat for gardening purposes. LTG Duration 10 weeks ROM Short Term Goal (STG) Lakshmi will improve her ROM to at least 5-100 degrees passively. STG Duration 5 weeks Group Home Goal (LTG) Lakshmi will improve her active ROM to 0-120. LTG Duration 10 weeks Assessment Summary Assessment Flexion up to 117 degrees. Pain with scar massage and end range flexion. Overall improving, but stiffness when first moving after being stationary continues. Physical Therapy Plan Frequency and Duration Frequency of Treatment 2x/Week Duration of treatment (weeks) 10 Plan of Care Start Date 01/08/23 Plan of Care End Date 03/22/23 Therapeutic Interventions Therapeutic Interventions Home Exercise Program,Manual Therapy,Neuromuscular Re- education,Self-Care/Home Management,Therapeutic Activities,Therapeutic Exercises
--- NOTE | 2023-02-15 15:33 | PT.OTN ---
Current Diagnoses Unilateral primary osteoarthritis, left knee (02/15/23) Other abnormalities of gait and mobility (02/15/23) Physical Therapy Treatment Note PT-OP-A Visit Information Start: 01/04/23 12:55 Freq: Status: Active Protocol: Document 02/15/23 10:03 AMB (Rec: 02/15/23 10:47 AMB [id number]) Out-Patient Physical Therapy Visit Information Visit Information Visit Type Treatment Note Visit Start Time 10:00 Visit Stop Time 10:55 Total Visit Minutes 55 Visit Number 9 Number of FUEL CELL ENGINEER Visits 0 PT-OP-B Current Condition Start: 01/04/23 12:55 Freq: Status: Active Protocol: Document 02/07/23 11:18 SAK (Rec: 02/07/23 12:02 SAK [id number]) Current Condition History of Current Condition Onset Date June 2022 Current Complaints partial knee replacement History of Current Condition Wants to be able to walk 3 miles. Gardening. Lives in a single level home with , no steps to enter, has a walker (4WW, and a standard walk). 3/10 in seated, increases with moving from sit to stand and walking. Currently walking only about a couple hundred feet due to the pain. PT-OP-C Subjective Start: 01/04/23 12:55 Freq: Status: Active Protocol: Document 02/15/23 10:03 AMB (Rec: 02/15/23 10:47 AMB [id number]) OP-PT Subjective Patient Comments Patient Comments Pt reports increased ant somers pain Saturday day and is about the same since, worst with walking. PT-OP-G Mobility & Gait Start: 01/04/23 12:55 Freq: Status: Active Protocol: Document 01/08/23 09:45 AMB (Rec: 01/11/23 10:53 AMB [id number]) OP Gait Assessment Comments Gait Comments Pt with antalgic gait, difficulty flexing knee for appropriate gait patterning, wearing knee brace butnot ambulating with assistive device. PT-OP-K Range of Motion Start: 01/04/23 12:55 Freq: Status: Active Protocol: Document 01/08/23 10:05 AMB (Rec: 01/08/23 10:14 AMB [id number]) Knee Goniometric Range of Motion Knee Right Flexion Active (degrees) 126 Extension Passive (degrees) 0 Left Patient Position Supine Flexion Active (degrees) 96 Extension Passive (degrees) 0 PT-OP-M Strength Start: 01/04/23 12:55 Freq: Status: Active Protocol: Document 01/08/23 10:05 AMB (Rec: 01/08/23 10:14 AMB [id number]) Knee Strength Knee Manual Muscle Testing Right Flexion (S2) 4+ Good+ Extension (L3) 4+ Good+ Left Flexion (S2) 3 Fair Extension (L3) 3 Fair PT-OP-Q Treatments Start: 01/04/23 12:55 Freq: Status: Active Protocol: Document 02/15/23 10:03 AMB (Rec: 02/15/23 10:47 AMB [id number]) Cardio Equipment Bicycle (Upright) Duration (Minutes) 10 Resistance 4 Seat Position 5 Therapeutic Exercises Supine Exercises stretch Supine Exercise Name PT assisted L HS stretch w/APs Reps/Minutes 2 min SLR Side left Reps/Minutes 2x10 Comments good quad control heel slides Supine Exercise Name knee flex w/ball Side bilateral Reps/Minutes 5 sec x10 Standing Exercises sit to stand Side bilateral Reps/Minutes 2 Comments cues for LLE to be more under her squat Standing Exercise Name mini at rail Side bilateral Reps/Minutes 10 Manual Therapy Treatment Soft Tissue Mobilization 1 Body Location left knee Intensity/Depth Superficial Body Position Hooklying Comments scar massage, focusing on distal scar. PT-OP-R Modalities Start: 01/04/23 12:55 Freq: Status: Active Protocol: Document 02/15/23 10:00 AMB (Rec: 02/15/23 15:27 AMB [id number]) Hot Pack/Cold Pack Treatment Cold Pack Location left knee Patient Position Hooklying Treatment Duration (minutes) 10 Patient Tolerance Good PT-OP-T Assessment and Plan Start: 01/04/23 12:55 Freq: Status: Active Protocol: Document 02/15/23 10:03 AMB (Rec: 02/15/23 10:47 AMB [id number]) Physical Therapy Assessment Goals Gait Short Term Goal (STG) Lakshmi will ambulate for 5 minutes without antalgic gait without AD. STG Duration 5 weeks Laundry Routeman Goal (LTG) Lakshmi will ambulate without AD over uneven surfaces with knee pain of 3/10 or less. LTG Duration 10 weeks Strength Short Term Goal (STG) Lakshmi will improve her knee strength so that she can ascend stairs with an alternating gait pattern. STG Duration 5 weeks Laundry Routeman Goal (LTG) Lakshmi will improve her knee strength so that she can perform a partial squat for gardening purposes. LTG Duration 10 weeks ROM Short Term Goal (STG) Lakshmi will improve her ROM to at least 5-100 degrees passively. STG Duration 5 weeks Laundry Routeman Goal (LTG) Lakshmi will improve her active ROM to 0-120. LTG Duration 10 weeks Assessment Summary Assessment Lakshmi had increased tibial pain over her scars today, encouraged in scar massage, continued stretching, gentle with walking/standing as that is what seems to increase her pain at this point. Physical Therapy Plan Frequency and Duration Frequency of Treatment 2x/Week Duration of treatment (weeks) 10 Plan of Care Start Date 01/08/23 Plan of Care End Date 03/22/23 Therapeutic Interventions Therapeutic Interventions Home Exercise Program,Manual Therapy,Neuromuscular Re- education,Self-Care/Home Management,Therapeutic Activities,Therapeutic Exercises Next Visit Focus/Plan Next Note Type Progress Note Next Visit Plan next visit 10th visit, reassess somers pain
--- NOTE | 2023-02-19 21:22 | PT.OTN ---
Current Diagnoses Unilateral primary osteoarthritis, left knee (02/19/23) Other abnormalities of gait and mobility (02/19/23) Physical Therapy Treatment Note PT-OP-A Visit Information Start: 01/04/23 12:55 Freq: Status: Active Protocol: Document 02/19/23 08:21 AMB (Rec: 02/19/23 09:07 AMB [id number]) Out-Patient Physical Therapy Visit Information Visit Information Visit Type Progress Note Visit Start Time 08:15 Visit Stop Time 09:10 Total Visit Minutes 55 Visit Number 10 PT-OP-B Current Condition Start: 01/04/23 12:55 Freq: Status: Active Protocol: Document 02/07/23 11:18 SAK (Rec: 02/07/23 12:02 SAK [id number]) Current Condition History of Current Condition Onset Date June 2022 Current Complaints partial knee replacement History of Current Condition Wants to be able to walk 3 miles. Gardening. Lives in a single level home with , no steps to enter, has a walker (4WW, and a standard walk). 3/10 in seated, increases with moving from sit to stand and walking. Currently walking only about a couple hundred feet due to the pain. PT-OP-C Subjective Start: 01/04/23 12:55 Freq: Status: Active Protocol: Document 02/19/23 08:21 AMB (Rec: 02/19/23 09:07 AMB [id number]) OP-PT Subjective Patient Comments Patient Comments Pt reports PT-OP-G Mobility & Gait Start: 01/04/23 12:55 Freq: Status: Active Protocol: Document 01/08/23 09:45 AMB (Rec: 01/11/23 10:53 AMB [id number]) OP Gait Assessment Comments Gait Comments Pt with antalgic gait, difficulty flexing knee for appropriate gait patterning, wearing knee brace butnot ambulating with assistive device. PT-OP-K Range of Motion Start: 01/04/23 12:55 Freq: Status: Active Protocol: Document 01/08/23 10:05 AMB (Rec: 01/08/23 10:14 AMB [id number]) Knee Goniometric Range of Motion Knee Right Flexion Active (degrees) 126 Extension Passive (degrees) 0 Left Patient Position Supine Flexion Active (degrees) 96 Extension Passive (degrees) 0 PT-OP-M Strength Start: 01/04/23 12:55 Freq: Status: Active Protocol: Document 01/08/23 10:05 AMB (Rec: 01/08/23 10:14 AMB [id number]) Knee Strength Knee Manual Muscle Testing Right Flexion (S2) 4+ Good+ Extension (L3) 4+ Good+ Left Flexion (S2) 3 Fair Extension (L3) 3 Fair PT-OP-Q Treatments Start: 01/04/23 12:55 Freq: Status: Active Protocol: Document 02/19/23 08:21 AMB (Rec: 02/19/23 09:07 AMB [id number]) Cardio Equipment Bicycle (Upright) Duration (Minutes) 10 Resistance 4 Seat Position 5 Gym Equipment Shuttle Recovery Unilateral Squats Details elena Resistance 25 Shuttle Recovery Platform Stable Reps/Time 10 Bilateral Squats Resistance 50 Shuttle Recovery Platform Stable Reps/Time 10x2 Therapeutic Exercises Supine Exercises stretch Supine Exercise Name PT assisted L HS stretch w/APs Reps/Minutes 2 min SLR Side left Reps/Minutes 2x10 Comments good quad control heel slides Supine Exercise Name knee flex w/ball Side bilateral Reps/Minutes 5 sec x10 Sitting Exercises quad stretch Reps/Minutes 5x5 Comments pt opp LE assisting with stretch into knee flex Standing Exercises squat Standing Exercise Name mini at rail Side bilateral Reps/Minutes 10 Manual Therapy Treatment Soft Tissue Mobilization 1 Body Location left knee Mobilization Type Instrument Assisted Intensity/Depth Superficial Body Position Hooklying Comments scar massage, focusing on distal scar, cupping Joint Mobilizations patellar mob Direction sup/inf/med/lat Grade III Body Position Supine Reps/Duration 3 min PT-OP-R Modalities Start: 01/04/23 12:55 Freq: Status: Active Protocol: Document 02/15/23 10:00 AMB (Rec: 02/15/23 15:27 AMB [id number]) Hot Pack/Cold Pack Treatment Cold Pack Location left knee Patient Position Hooklying Treatment Duration (minutes) 10 Patient Tolerance Good PT-OP-T Assessment and Plan Start: 01/04/23 12:55 Freq: Status: Active Protocol: Document 02/19/23 08:21 AMB (Rec: 02/19/23 09:07 AMB [id number]) Physical Therapy Assessment Goals Gait Short Term Goal (STG) Lakshmi will ambulate for 5 minutes without antalgic gait without AD. 02/19: 4/10 pain does continue to have antalgia STG Duration 5 weeks Hand Tool Filer Goal (LTG) Lakshmi will ambulate without AD over uneven surfaces with knee pain of 3/10 or less. continues to have pain LTG Duration 10 weeks Strength Short Term Goal (STG) Lakshmi will improve her knee strength so that she can ascend stairs with an alternating gait pattern. STG Duration MET Mcfp Goal (LTG) Lakshmi will improve her knee strength so that she can perform a partial squat for gardening purposes. 02/19 unable LTG Duration 10 weeks ROM Short Term Goal (STG) Lakshmi will improve her ROM to at least 5-100 degrees passively. STG Duration MET Hand Tool Filer Goal (LTG) Lakshmi will improve her active ROM to 0-120. LTG Duration 10 weeks Assessment Summary Assessment Lakshmi's somers pain is improved, but fatigue today due to poor sleep. Pt continues to have antalgic gait pattern, does not want to use SPC. Physical Therapy Plan Frequency and Duration Frequency of Treatment 2x/Week Duration of treatment (weeks) 10 Plan of Care Start Date 01/08/23 Plan of Care End Date 03/22/23 Therapeutic Interventions Therapeutic Interventions Home Exercise Program,Manual Therapy,Neuromuscular Re- education,Self-Care/Home Management,Therapeutic Activities,Therapeutic Exercises Next Visit Focus/Plan Next Note Type Treatment Note Next Visit Plan Progress tolerance for gait, squats, stairs, progress knee flexion ROM
--- NOTE | 2023-02-28 14:53 | PT.OTN ---
Current Diagnoses Unilateral primary osteoarthritis, left knee (02/28/23) Other abnormalities of gait and mobility (02/28/23) Physical Therapy Treatment Note PT-OP-A Visit Information Start: 01/04/23 12:55 Freq: Status: Active Protocol: Document 02/28/23 10:03 [facility] (Rec: 02/28/23 14:53 [facility] [id number]) Out-Patient Physical Therapy Visit Information Visit Information Visit Type Treatment Note Visit Start Time 10:03 Visit Stop Time 10:55 Total Visit Minutes 52 Visit Number 11 Number of NASCAR DRIVER Visits 0 PT-OP-B Current Condition Start: 01/04/23 12:55 Freq: Status: Active Protocol: Document 02/07/23 11:18 SAK (Rec: 02/07/23 12:02 SAK [id number]) Current Condition History of Current Condition Onset Date June 2022 Current Complaints partial knee replacement History of Current Condition Wants to be able to walk 3 miles. Gardening. Lives in a single level home with , no steps to enter, has a walker (4WW, and a standard walk). 3/10 in seated, increases with moving from sit to stand and walking. Currently walking only about a couple hundred feet due to the pain. PT-OP-C Subjective Start: 01/04/23 12:55 Freq: Status: Active Protocol: Document 02/28/23 10:03 [facility] (Rec: 02/28/23 14:53 [facility] [id number]) OP-PT Subjective Patient Comments Patient Comments Pt reports she has been sick since last session and spent a couple days in bed and her knee felt good then. She thinks she overdid it yesterday when she did all the cleaning etc. PT-OP-G Mobility & Gait Start: 01/04/23 12:55 Freq: Status: Active Protocol: Document 01/08/23 09:45 AMB (Rec: 01/11/23 10:53 AMB [id number]) OP Gait Assessment Comments Gait Comments Pt with antalgic gait, difficulty flexing knee for appropriate gait patterning, wearing knee brace butnot ambulating with assistive device. PT-OP-K Range of Motion Start: 01/04/23 12:55 Freq: Status: Active Protocol: Document 01/08/23 10:05 AMB (Rec: 01/08/23 10:14 AMB [id number]) Knee Goniometric Range of Motion Knee Right Flexion Active (degrees) 126 Extension Passive (degrees) 0 Left Patient Position Supine Flexion Active (degrees) 96 Extension Passive (degrees) 0 PT-OP-M Strength Start: 01/04/23 12:55 Freq: Status: Active Protocol: Document 01/08/23 10:05 AMB (Rec: 01/08/23 10:14 AMB [id number]) Knee Strength Knee Manual Muscle Testing Right Flexion (S2) 4+ Good+ Extension (L3) 4+ Good+ Left Flexion (S2) 3 Fair Extension (L3) 3 Fair PT-OP-Q Treatments Start: 01/04/23 12:55 Freq: Status: Active Protocol: Document 02/28/23 10:03 [facility] (Rec: 02/28/23 14:53 [facility] [id number]) Cardio Equipment Bicycle (Upright) Duration (Minutes) 6 Resistance 7 Seat Position 5 Gym Equipment Shuttle Recovery Unilateral Squats Details elena Resistance 25 Shuttle Recovery Platform Stable Reps/Time 10 Bilateral Squats Details attempted higher wt but pt unable Resistance 50 Shuttle Recovery Platform Stable Reps/Time [id number] full knee ext Therapeutic Exercises Standing Exercises step up Side left Equipment Used 5 in step w/rail prn Reps/Minutes 10 Comments cues for glute engagement squat Standing Exercise Name mini at rail Side bilateral Reps/Minutes 10 heel/toe raise Standing Exercise Name DL heel raise Equipment Used rail Reps/Minutes 15 Comments on step Manual Therapy Treatment Soft Tissue Mobilization 1 Body Location left knee Intensity/Depth Superficial Body Position Hooklying Comments scar massage, focusing on distal scar. Joint Mobilizations patellar mob Direction sup/inf/med/lat Grade III Body Position Supine PT-OP-R Modalities Start: 01/04/23 12:55 Freq: Status: Active Protocol: Document 02/28/23 10:03 [facility] (Rec: 02/28/23 14:53 [facility] [id number]) Hot Pack/Cold Pack Treatment Cold Pack Location left knee Patient Position Hooklying Treatment Duration (minutes) 10 Patient Tolerance Good PT-OP-T Assessment and Plan Start: 01/04/23 12:55 Freq: Status: Active Protocol: Document 02/28/23 10:03 [facility] (Rec: 02/28/23 14:53 [facility] [id number]) Physical Therapy Assessment Goals Gait Short Term Goal (STG) Lakshmi will ambulate for 5 minutes without antalgic gait without AD. 02/19: 4/10 pain does continue to have antalgia STG Duration 5 weeks Pay Per Click Strategist Goal (LTG) Lakshmi will ambulate without AD over uneven surfaces with knee pain of 3/10 or less. continues to have pain LTG Duration 10 weeks Strength Short Term Goal (STG) Lakshmi will improve her knee strength so that she can ascend stairs with an alternating gait pattern. STG Duration MET Pay Per Click Strategist Goal (LTG) Lakshmi will improve her knee strength so that she can perform a partial squat for gardening purposes. 02/19 unable LTG Duration 10 weeks ROM Short Term Goal (STG) Lakshmi will improve her ROM to at least 5-100 degrees passively. STG Duration MET Mcfp Goal (LTG) Lakshmi will improve her active ROM to 0-120. LTG Duration 10 weeks Assessment Summary Assessment Pt improving w/ROM and had inc ROM afer scar work and w/ patellar mobs. She is still showing significant quad and glute weakness and antalgic gait. Physical Therapy Plan Frequency and Duration Frequency of Treatment 2x/Week Duration of treatment (weeks) 10 Plan of Care Start Date 01/08/23 Plan of Care End Date 03/22/23 Next Visit Focus/Plan Next Note Type Treatment Note Next Visit Plan Progress tolerance for gait, squats, stairs, progress knee flexion ROM
--- NOTE | 2023-03-04 13:02 | PT.OTN ---
Current Diagnoses Unilateral primary osteoarthritis, left knee (03/04/23) Other abnormalities of gait and mobility (03/04/23) Physical Therapy Treatment Note PT-OP-A Visit Information Start: 01/04/23 12:55 Freq: Status: Active Protocol: Document 03/04/23 10:49 [facility] (Rec: 03/04/23 13:02 [facility] [id number]) Out-Patient Physical Therapy Visit Information Visit Information Visit Type Treatment Note Visit Start Time 10:51 Visit Stop Time 11:30 Total Visit Minutes 39 Visit Number 12 Number of CROCHETER HAND Visits 0 PT-OP-B Current Condition Start: 01/04/23 12:55 Freq: Status: Active Protocol: Document 02/07/23 11:18 SAK (Rec: 02/07/23 12:02 SAK [id number]) Current Condition History of Current Condition Onset Date June 2022 Current Complaints partial knee replacement History of Current Condition Wants to be able to walk 3 miles. Gardening. Lives in a single level home with , no steps to enter, has a walker (4WW, and a standard walk). 3/10 in seated, increases with moving from sit to stand and walking. Currently walking only about a couple hundred feet due to the pain. PT-OP-C Subjective Start: 01/04/23 12:55 Freq: Status: Active Protocol: Document 03/04/23 10:49 [facility] (Rec: 03/04/23 13:02 [facility] [id number]) OP-PT Subjective Patient Comments Patient Comments Pt reports She has been sore since all the manipulation of knee caps. PT-OP-G Mobility & Gait Start: 01/04/23 12:55 Freq: Status: Active Protocol: Document 01/08/23 09:45 AMB (Rec: 01/11/23 10:53 AMB [id number]) OP Gait Assessment Comments Gait Comments Pt with antalgic gait, difficulty flexing knee for appropriate gait patterning, wearing knee brace butnot ambulating with assistive device. PT-OP-K Range of Motion Start: 01/04/23 12:55 Freq: Status: Active Protocol: Document 01/08/23 10:05 AMB (Rec: 01/08/23 10:14 AMB [id number]) Knee Goniometric Range of Motion Knee Right Flexion Active (degrees) 126 Extension Passive (degrees) 0 Left Patient Position Supine Flexion Active (degrees) 96 Extension Passive (degrees) 0 PT-OP-M Strength Start: 01/04/23 12:55 Freq: Status: Active Protocol: Document 01/08/23 10:05 AMB (Rec: 01/08/23 10:14 AMB [id number]) Knee Strength Knee Manual Muscle Testing Right Flexion (S2) 4+ Good+ Extension (L3) 4+ Good+ Left Flexion (S2) 3 Fair Extension (L3) 3 Fair PT-OP-Q Treatments Start: 01/04/23 12:55 Freq: Status: Active Protocol: Document 03/04/23 10:49 [facility] (Rec: 03/04/23 13:02 [facility] [id number]) Cardio Equipment Bicycle (Upright) Duration (Minutes) 6 Resistance 7 Seat Position 5 Gym Equipment Shuttle Recovery Unilateral Squats Details elena Resistance 25 Shuttle Recovery Platform Stable Reps/Time 12 Bilateral Squats Resistance 50 Shuttle Recovery Platform Stable Reps/Time [id number] full knee ext Gait Training Gait Activity gait Description work on push off and no lat lean in mirror Distance/Duration 5x 1 Description wt shift sin mirror b x8 ea cues knees straight w/push off and wt cceptance 2 Description gait at wall (no PF) Distance/Duration 8x3 sec Comments L Manual Therapy Treatment Soft Tissue Mobilization thigh Body Location R quad and ITB Mobilization Type Rolling,Strumming,Sustained Pressure Intensity/Depth Moderate Comments supine and s/l FM w/knee flex and hip ext Joint Mobilizations Tibfem Joint R AP on femur FM PT-OP-R Modalities Start: 01/04/23 12:55 Freq: Status: Active Protocol: Document 02/28/23 10:03 [facility] (Rec: 02/28/23 14:53 [facility] [id number]) Hot Pack/Cold Pack Treatment Cold Pack Location left knee Patient Position Hooklying Treatment Duration (minutes) 10 Patient Tolerance Good PT-OP-T Assessment and Plan Start: 01/04/23 12:55 Freq: Status: Active Protocol: Document 03/04/23 10:49 [facility] (Rec: 03/04/23 13:02 [facility] [id number]) Physical Therapy Assessment Goals Gait Short Term Goal (STG) Lakshmi will ambulate for 5 minutes without antalgic gait without AD. 5/30: 4/10 pain does continue to have antalgia STG Duration 5 weeks Fdc Goal (LTG) Lakshmi will ambulate without AD over uneven surfaces with knee pain of 3/10 or less. continues to have pain LTG Duration 10 weeks Strength Short Term Goal (STG) Lakshmi will improve her knee strength so that she can ascend stairs with an alternating gait pattern. STG Duration MET Risk Specialist Goal (LTG) Lakshmi will improve her knee strength so that she can perform a partial squat for gardening purposes. 02/19 unable LTG Duration 10 weeks ROM Short Term Goal (STG) Lakshmi will improve her ROM to at least 5-100 degrees passively. STG Duration MET Risk Specialist Goal (LTG) Lakshmi will improve her active ROM to 0-120. LTG Duration 10 weeks Assessment Summary Assessment Pt had left pain w/knee ext at first w/exercises and in standing but that improved after mnaul whcih did imrpove her gait. She was able to comfortablely push off after manual. Physical Therapy Plan Frequency and Duration Frequency of Treatment 2x/Week Duration of treatment (weeks) 10 Plan of Care Start Date 01/08/23 Plan of Care End Date 03/22/23 Next Visit Focus/Plan Next Note Type Treatment Note Next Visit Plan Progress tolerance for gait, squats, stairs, progress knee flexion ROM
--- NOTE | 2023-03-07 12:13 | PT.OTN ---
Current Diagnoses Unilateral primary osteoarthritis, left knee (03/07/23) Other abnormalities of gait and mobility (03/07/23) Physical Therapy Treatment Note PT-OP-A Visit Information Start: 01/04/23 12:55 Freq: Status: Active Protocol: Document 03/07/23 10:04 [facility] (Rec: 03/07/23 12:13 [facility] [id number]) Out-Patient Physical Therapy Visit Information Visit Information Visit Type Treatment Note Visit Start Time 10:03 Visit Stop Time 10:45 Total Visit Minutes 42 Visit Number 13 Number of WIRE FRAME MAKER Visits 0 PT-OP-B Current Condition Start: 01/04/23 12:55 Freq: Status: Active Protocol: Document 02/07/23 11:18 SAK (Rec: 02/07/23 12:02 SAK [id number]) Current Condition History of Current Condition Onset Date June 2022 Current Complaints partial knee replacement History of Current Condition Wants to be able to walk 3 miles. Gardening. Lives in a single level home with , no steps to enter, has a walker (4WW, and a standard walk). 3/10 in seated, increases with moving from sit to stand and walking. Currently walking only about a couple hundred feet due to the pain. PT-OP-C Subjective Start: 01/04/23 12:55 Freq: Status: Active Protocol: Document 03/07/23 10:04 [facility] (Rec: 03/07/23 12:13 [facility] [id number]) OP-PT Subjective Patient Comments Patient Comments I wish it would just stop being sore so I could get on with my life. Pt reports she can't sleep without putting ice on it and has to get up a couple times in the night and put ice on to go back to sleep . PT-OP-G Mobility & Gait Start: 01/04/23 12:55 Freq: Status: Active Protocol: Document 01/08/23 09:45 AMB (Rec: 01/11/23 10:53 AMB [id number]) OP Gait Assessment Comments Gait Comments Pt with antalgic gait, difficulty flexing knee for appropriate gait patterning, wearing knee brace butnot ambulating with assistive device. PT-OP-K Range of Motion Start: 01/04/23 12:55 Freq: Status: Active Protocol: Document 01/08/23 10:05 AMB (Rec: 01/08/23 10:14 AMB [id number]) Knee Goniometric Range of Motion Knee Right Flexion Active (degrees) 126 Extension Passive (degrees) 0 Left Patient Position Supine Flexion Active (degrees) 96 Extension Passive (degrees) 0 PT-OP-M Strength Start: 01/04/23 12:55 Freq: Status: Active Protocol: Document 01/08/23 10:05 AMB (Rec: 01/08/23 10:14 AMB [id number]) Knee Strength Knee Manual Muscle Testing Right Flexion (S2) 4+ Good+ Extension (L3) 4+ Good+ Left Flexion (S2) 3 Fair Extension (L3) 3 Fair PT-OP-Q Treatments Start: 01/04/23 12:55 Freq: Status: Active Protocol: Document 03/07/23 10:04 [facility] (Rec: 03/07/23 12:13 [facility] [id number]) Cardio Equipment Bicycle (Upright) Duration (Minutes) 6 Resistance 8 Seat Position 5 Therapeutic Exercises Standing Exercises SL Standing Exercise Name working on dec UE support on counter Side bilateral hip hike Side left Reps/Minutes 10 sidestep Side bilateral Equipment Used orange band Reps/Minutes 10ft ea Comments cues posture TKE Side left Equipment Used orange band Reps/Minutes 10 squat Standing Exercise Name mini at rail Side bilateral Reps/Minutes 10 Gait Training Gait Activity gait Description work on push off and no lat lean in mirror Distance/Duration [id number] 1 Description wt shift sin mirror b x8 ea cues knees straight w/push off and wt cceptance Manual Therapy Treatment Soft Tissue Mobilization thigh Body Location L HS and ITB Mobilization Type Rolling,Strumming,Sustained Pressure Intensity/Depth Moderate Comments supine FM w/knee flex PT-OP-R Modalities Start: 01/04/23 12:55 Freq: Status: Active Protocol: Document 02/28/23 10:03 [facility] (Rec: 02/28/23 14:53 [facility] [id number]) Hot Pack/Cold Pack Treatment Cold Pack Location left knee Patient Position Hooklying Treatment Duration (minutes) 10 Patient Tolerance Good PT-OP-T Assessment and Plan Start: 01/04/23 12:55 Freq: Status: Active Protocol: Document 03/07/23 10:04 [facility] (Rec: 03/07/23 12:13 [facility] [id number]) Physical Therapy Assessment Goals Gait Short Term Goal (STG) Lakshmi will ambulate for 5 minutes without antalgic gait without AD. 02/19: 4 pain does continue to have antalgia STG Duration 5 weeks Digital Technician Goal (LTG) Lakshmi will ambulate without AD over uneven surfaces with knee pain of 3/10 or less. continues to have pain LTG Duration 10 weeks Strength Short Term Goal (STG) Lakshmi will improve her knee strength so that she can ascend stairs with an alternating gait pattern. STG Duration MET Digital Technician Goal (LTG) Lakshmi will improve her knee strength so that she can perform a partial squat for gardening purposes. 02/19 unable LTG Duration 10 weeks ROM Short Term Goal (STG) Lakshmi will improve her ROM to at least 5-100 degrees passively. STG Duration MET Senior Care Goal (LTG) Lakshmi will improve her active ROM to 0-120. LTG Duration 10 weeks Assessment Summary Assessment 117 after manual treatment today. She is improving ROM flex and can improve gait mechanics when cued now. She does have HS/ITB tightness likely contibuting to her paina nd flex limit Physical Therapy Plan Frequency and Duration Frequency of Treatment 2x/Week Duration of treatment (weeks) 10 Plan of Care Start Date 01/08/23 Plan of Care End Date 03/22/23 Next Visit Focus/Plan Next Note Type Treatment Note Next Visit Plan Progress tolerance for gait, squats, stairs, progress knee flexion ROM
--- NOTE | 2023-03-12 16:03 | PT.OTN ---
Current Diagnoses Unilateral primary osteoarthritis, left knee (03/12/23) Other abnormalities of gait and mobility (03/12/23) Physical Therapy Treatment Note PT-OP-A Visit Information Start: 01/04/23 12:55 Freq: Status: Active Protocol: Document 03/12/23 10:05 AMB (Rec: 03/12/23 10:51 AMB [id number]) Out-Patient Physical Therapy Visit Information Visit Information Visit Type Treatment Note Visit Start Time 10:03 Visit Stop Time 10:45 Total Visit Minutes 42 Visit Number 14 Number of CASINO WORKER Visits 0 PT-OP-B Current Condition Start: 01/04/23 12:55 Freq: Status: Active Protocol: Document 02/07/23 11:18 SAK (Rec: 02/07/23 12:02 SAK [id number]) Current Condition History of Current Condition Onset Date June 2022 Current Complaints partial knee replacement History of Current Condition Wants to be able to walk 3 miles. Gardening. Lives in a single level home with , no steps to enter, has a walker (4WW, and a standard walk). 3/10 in seated, increases with moving from sit to stand and walking. Currently walking only about a couple hundred feet due to the pain. PT-OP-C Subjective Start: 01/04/23 12:55 Freq: Status: Active Protocol: Document 03/12/23 13:37 AMB (Rec: 03/12/23 13:38 AMB [id number]) OP-PT Subjective Patient Comments Patient Comments Pt reports soreness at night, difficult time sleeping. PT-OP-G Mobility & Gait Start: 01/04/23 12:55 Freq: Status: Active Protocol: Document 01/08/23 09:45 AMB (Rec: 01/11/23 10:53 AMB [id number]) OP Gait Assessment Comments Gait Comments Pt with antalgic gait, difficulty flexing knee for appropriate gait patterning, wearing knee brace butnot ambulating with assistive device. PT-OP-K Range of Motion Start: 01/04/23 12:55 Freq: Status: Active Protocol: Document 01/08/23 10:05 AMB (Rec: 01/08/23 10:14 AMB [id number]) Knee Goniometric Range of Motion Knee Right Flexion Active (degrees) 126 Extension Passive (degrees) 0 Left Patient Position Supine Flexion Active (degrees) 96 Extension Passive (degrees) 0 PT-OP-M Strength Start: 01/04/23 12:55 Freq: Status: Active Protocol: Document 01/08/23 10:05 AMB (Rec: 01/08/23 10:14 AMB [id number]) Knee Strength Knee Manual Muscle Testing Right Flexion (S2) 4+ Good+ Extension (L3) 4+ Good+ Left Flexion (S2) 3 Fair Extension (L3) 3 Fair PT-OP-Q Treatments Start: 01/04/23 12:55 Freq: Status: Active Protocol: Document 03/12/23 10:05 AMB (Rec: 03/12/23 10:51 AMB [id number]) Cardio Equipment Bicycle (Upright) Duration (Minutes) 6 Resistance 9 Seat Position 5 Gym Equipment Shuttle Recovery Unilateral Squats Details elena Resistance 25 Shuttle Recovery Platform Stable Reps/Time 12 Therapeutic Exercises Standing Exercises sidestep Side bilateral Equipment Used orange band Reps/Minutes 10ft ea Comments cues posture step up Side left Equipment Used 5 in step w/rail prn Reps/Minutes 10 Comments cues for glute engagement sit to stand Side bilateral Reps/Minutes 2 Comments cues for LLE to be more under her squat Standing Exercise Name mini at rail Side bilateral Reps/Minutes 10 heel/toe raise Standing Exercise Name DL heel raise Equipment Used rail Reps/Minutes 15 Comments on step Manual Therapy Treatment Soft Tissue Mobilization thigh Body Location L HS and ITB Mobilization Type Rolling,Strumming,Sustained Pressure Intensity/Depth Moderate Comments supine FM w/knee flex Joint Mobilizations patellar mob Direction sup/inf/med/lat Grade III Body Position Supine PT-OP-R Modalities Start: 01/04/23 12:55 Freq: Status: Active Protocol: Document 02/28/23 10:03 [facility] (Rec: 02/28/23 14:53 [facility] [id number]) Hot Pack/Cold Pack Treatment Cold Pack Location left knee Patient Position Hooklying Treatment Duration (minutes) 10 Patient Tolerance Good PT-OP-T Assessment and Plan Start: 01/04/23 12:55 Freq: Status: Active Protocol: Document 03/12/23 10:05 AMB (Rec: 03/12/23 10:51 AMB [id number]) Physical Therapy Assessment Goals Gait Short Term Goal (STG) Lakshmi will ambulate for 5 minutes without antalgic gait without AD. 5/30: 4/10 pain does continue to have antalgia STG Duration 5 weeks Prison Goal (LTG) Lakshmi will ambulate without AD over uneven surfaces with knee pain of 3/10 or less. continues to have pain LTG Duration 10 weeks Strength Short Term Goal (STG) Lakshmi will improve her knee strength so that she can ascend stairs with an alternating gait pattern. STG Duration MET Corner Cutter Goal (LTG) Lakshmi will improve her knee strength so that she can perform a partial squat for gardening purposes. 02/19 unable LTG Duration 10 weeks ROM Short Term Goal (STG) Lakshmi will improve her ROM to at least 5-100 degrees passively. STG Duration MET Corner Cutter Goal (LTG) Lakshmi will improve her active ROM to 0-120. LTG Duration 10 weeks Assessment Summary Assessment 119 flexion today but continues to be painful at end range. Pt continues to have pain with sleeping, walking, and stairs. Pt not using cane at this point. Does continue to have antalgic gait but ROM is improving. Physical Therapy Plan Frequency and Duration Frequency of Treatment 2x/Week Duration of treatment (weeks) 10 Plan of Care Start Date 01/08/23 Plan of Care End Date 03/22/23 Therapeutic Interventions Therapeutic Interventions Home Exercise Program,Manual Therapy,Neuromuscular Re- education,Self-Care/Home Management,Therapeutic Activities,Therapeutic Exercises Next Visit Focus/Plan Next Note Type Progress Note Next Visit Plan Progress tolerance for gait, squats, stairs, progress knee flexion ROM
--- NOTE | 2023-03-15 12:33 | PT.OTN ---
Current Diagnoses Unilateral primary osteoarthritis, left knee (03/15/23) Other abnormalities of gait and mobility (03/15/23) Physical Therapy Treatment Note PT-OP-A Visit Information Start: 01/04/23 12:55 Freq: Status: Active Protocol: Document 03/15/23 10:46 AMB (Rec: 03/15/23 11:30 AMB [id number]) Out-Patient Physical Therapy Visit Information Visit Information Visit Type Progress Note Visit Start Time 10:50 Visit Stop Time 11:30 Total Visit Minutes 40 Visit Number 15 PT-OP-B Current Condition Start: 01/04/23 12:55 Freq: Status: Active Protocol: Document 02/07/23 11:18 SAK (Rec: 02/07/23 12:02 SAK [id number]) Current Condition History of Current Condition Onset Date June 2022 Current Complaints partial knee replacement History of Current Condition Wants to be able to walk 3 miles. Gardening. Lives in a single level home with , no steps to enter, has a walker (4WW, and a standard walk). 3/10 in seated, increases with moving from sit to stand and walking. Currently walking only about a couple hundred feet due to the pain. PT-OP-C Subjective Start: 01/04/23 12:55 Freq: Status: Active Protocol: Document 03/15/23 10:46 AMB (Rec: 03/15/23 11:30 AMB [id number]) OP-PT Subjective Patient Comments Patient Comments Pt continues to have pain with walking distances. PT-OP-G Mobility & Gait Start: 01/04/23 12:55 Freq: Status: Active Protocol: Document 01/08/23 09:45 AMB (Rec: 01/11/23 10:53 AMB [id number]) OP Gait Assessment Comments Gait Comments Pt with antalgic gait, difficulty flexing knee for appropriate gait patterning, wearing knee brace butnot ambulating with assistive device. PT-OP-K Range of Motion Start: 01/04/23 12:55 Freq: Status: Active Protocol: Document 01/08/23 10:05 AMB (Rec: 01/08/23 10:14 AMB [id number]) Knee Goniometric Range of Motion Knee Right Flexion Active (degrees) 126 Extension Passive (degrees) 0 Left Patient Position Supine Flexion Active (degrees) 96 Extension Passive (degrees) 0 PT-OP-M Strength Start: 01/04/23 12:55 Freq: Status: Active Protocol: Document 01/08/23 10:05 AMB (Rec: 01/08/23 10:14 AMB [id number]) Knee Strength Knee Manual Muscle Testing Right Flexion (S2) 4+ Good+ Extension (L3) 4+ Good+ Left Flexion (S2) 3 Fair Extension (L3) 3 Fair PT-OP-Q Treatments Start: 01/04/23 12:55 Freq: Status: Active Protocol: Document 03/15/23 10:46 AMB (Rec: 03/15/23 11:30 AMB [id number]) Cardio Equipment Bicycle (Upright) Duration (Minutes) 6 Resistance 9 Seat Position 5 Gym Equipment Shuttle Recovery Unilateral Squats Details elena Resistance 25 Shuttle Recovery Platform Stable Reps/Time 12 Bilateral Squats Resistance 50 Shuttle Recovery Platform Stable Reps/Time [id number] full knee ext Therapeutic Exercises Supine Exercises stretch Supine Exercise Name PT assisted L HS stretch w/APs Reps/Minutes 2 min Standing Exercises sit to stand Side bilateral Reps/Minutes 2 Comments cues for LLE to be more under her squat Standing Exercise Name mini at rail Side bilateral Reps/Minutes 2x10 Comments added blue foam pods Manual Therapy Treatment Soft Tissue Mobilization 1 Body Location left knee Mobilization Type Myofascial Release Intensity/Depth Moderate Comments scar tissue Joint Mobilizations patellar mob Direction sup/inf/med/lat Grade III Body Position Supine PT-OP-R Modalities Start: 01/04/23 12:55 Freq: Status: Active Protocol: Document 02/28/23 10:03 [facility] (Rec: 02/28/23 14:53 [facility] [id number]) Hot Pack/Cold Pack Treatment Cold Pack Location left knee Patient Position Hooklying Treatment Duration (minutes) 10 Patient Tolerance Good PT-OP-T Assessment and Plan Start: 01/04/23 12:55 Freq: Status: Active Protocol: Document 03/15/23 10:46 AMB (Rec: 03/15/23 11:30 AMB [id number]) Physical Therapy Assessment Goals Gait Short Term Goal (STG) Lakshmi will ambulate for 5 minutes without antalgic gait without AD. 30: 4/10 pain does continue to have antalgia STG Duration 5 weeks [facility] Goal (LTG) Lakshmi will ambulate without AD over uneven surfaces with knee pain of 3/10 or less. 6/ 23 continues to have pain 7-8/ 10 pain after walking 1/2 mile LTG Duration 10 weeks Strength Short Term Goal (STG) Lakshmi will improve her knee strength so that she can ascend stairs with an alternating gait pattern. STG Duration MET Perfume And Toilet Water Maker Goal (LTG) Lakshmi will improve her knee strength so that she can perform a partial squat for gardening purposes. 02/19 unable LTG Duration 10 weeks ROM Short Term Goal (STG) Lakshmi will improve her ROM to at least 5-100 degrees passively. STG Duration MET Perfume And Toilet Water Maker Goal (LTG) Lakshmi will improve her active ROM to 0-120. LTG Duration 03/15: 0-119 Assessment Summary Assessment Lakshmi has improved her ROM well. She continues to have pain with walking and sleeping . Pt is gardening by standing and bending over (doesn't bend knees). PT has been working on squat tolerance for return to gardening, pt continues to need to strengthen quads and glutes. Does exhibit antalgic gait at times. Lakshmi will continue to benefit from physical therapy to progress her strengthening to improve her gait and reduce her pain. Physical Therapy Plan Frequency and Duration Frequency of Treatment 2x/Week Duration of treatment (weeks) 10 Plan of Care Start Date 03/15/23 Plan of Care End Date 05/24/23 Therapeutic Interventions Therapeutic Interventions Home Exercise Program,Manual Therapy,Neuromuscular Re- education,Self-Care/Home Management,Therapeutic Activities,Therapeutic Exercises Modalities Cold Pack/Ice Massage,Electric Stimulation,Hot Packs Next Visit Focus/Plan Next Note Type Progress Note Next Visit Plan Progress tolerance for gait, squats, stairs, progress knee flexion ROM
--- NOTE | 2023-03-15 12:34 | PT.OPPOC ---
Physical, Occupational & Speech Therapy At [facility] Current Diagnoses Unilateral primary osteoarthritis, left knee (03/15/23) Other abnormalities of gait and mobility (03/15/23) Visit Care Team Role Provider Type Cleveland Driver MD Family Provider Physician Primary Care Provider Specialty: Internal Medicine Address: [address] [place] [address], [address], [address] Email: [email or web address] Linda Suh MD Attending Provider Physician Referring Provider Specialty: Orthopedics Orthopedic Surgery Address: [address] [place] [address], [id number] Email: [email or web address] Plan Of Care PT-OP-T Assessment and Plan Start: 01/04/23 12:55 Freq: Status: Active Protocol: Document 03/15/23 10:46 AMB (Rec: 03/15/23 11:30 AMB [id number]) Physical Therapy Assessment Goals Gait Short Term Goal (STG) Lakshmi will ambulate for 5 minutes without antalgic gait without AD. 02/19: 4/10 pain does continue to have antalgia STG Duration 5 weeks Stunt Double Goal (LTG) Lakshmi will ambulate without AD over uneven surfaces with knee pain of 3/10 or less. continues to have pain 7-8/ 10 pain after walking 1/2 mile LTG Duration 10 weeks Strength Short Term Goal (STG) Lakshmi will improve her knee strength so that she can ascend stairs with an alternating gait pattern. STG Duration MET Custodial Goal (LTG) Lakshmi will improve her knee strength so that she can perform a partial squat for gardening purposes. 02/19 unable LTG Duration 10 weeks ROM Short Term Goal (STG) Lakshmi will improve her ROM to at least 5-100 degrees passively. STG Duration MET Stunt Double Goal (LTG) Lakshmi will improve her active ROM to 0-120. LTG Duration 03/15: 0-119 Assessment Summary Assessment Lakshmi has improved her ROM well. She continues to have pain with walking and sleeping . Pt is gardening by standing and bending over (doesn't bend knees). PT has been working on squat tolerance for return to gardening, pt continues to need to strengthen quads and glutes. Does exhibit antalgic gait at times. Lakshmi will continue to benefit from physical therapy to progress her strengthening to improve her gait and reduce her pain. Physical Therapy Plan Frequency and Duration Frequency of Treatment 2x/Week Duration of treatment (weeks) 10 Plan of Care Start Date 03/15/23 Plan of Care End Date 05/24/23 Therapeutic Interventions Therapeutic Interventions Home Exercise Program,Manual Therapy,Neuromuscular Re- education,Self-Care/Home Management,Therapeutic Activities,Therapeutic Exercises Modalities Cold Pack/Ice Massage,Electric Stimulation,Hot Packs Next Visit Focus/Plan Next Note Type Progress Note Next Visit Plan Progress tolerance for gait, squats, stairs, progress knee flexion ROM Plan of Care Dates Plan of Care Start Date 03/15/23 Plan of Care End Date 05/24/23 Electronically Signed by: Naya Ling, PT 03/15/23 5111 If you are in agreement with this Plan of Care, please return a signed and dated copy. I have reviewed this Plan of Care and certify that the skilled therapy services above are required to meet the patient?s needs. Physician Signature Date Printed Name and Credentials Clinical Instructor Signature Printed Name and Credentials
--- NOTE | 2023-03-18 11:58 | PT.OTN ---
Current Diagnoses Unilateral primary osteoarthritis, left knee (03/18/23) Other abnormalities of gait and mobility (03/18/23) Physical Therapy Treatment Note PT-OP-A Visit Information Start: 01/04/23 12:55 Freq: Status: Active Protocol: Document 03/18/23 10:58 AMB (Rec: 03/18/23 11:58 AMB [id number]) Out-Patient Physical Therapy Visit Information Visit Information Visit Type Treatment Note Visit Start Time 10:45 Visit Stop Time 11:30 Total Visit Minutes 45 Visit Number 16 PT-OP-B Current Condition Start: 01/04/23 12:55 Freq: Status: Active Protocol: Document 02/07/23 11:18 SAK (Rec: 02/07/23 12:02 SAK [id number]) Current Condition History of Current Condition Onset Date June 2022 Current Complaints partial knee replacement History of Current Condition Wants to be able to walk 3 miles. Gardening. Lives in a single level home with , no steps to enter, has a walker (4WW, and a standard walk). 3/10 in seated, increases with moving from sit to stand and walking. Currently walking only about a couple hundred feet due to the pain. PT-OP-C Subjective Start: 01/04/23 12:55 Freq: Status: Active Protocol: Document 03/18/23 10:58 AMB (Rec: 03/18/23 11:58 AMB [id number]) OP-PT Subjective Patient Comments Patient Comments Pt had a near fall over the weekend so is quite sore from that. Had difficulty standing up from the chair and got stuck. PT-OP-G Mobility & Gait Start: 01/04/23 12:55 Freq: Status: Active Protocol: Document 01/08/23 09:45 AMB (Rec: 01/11/23 10:53 AMB [id number]) OP Gait Assessment Comments Gait Comments Pt with antalgic gait, difficulty flexing knee for appropriate gait patterning, wearing knee brace butnot ambulating with assistive device. PT-OP-K Range of Motion Start: 01/04/23 12:55 Freq: Status: Active Protocol: Document 01/08/23 10:05 AMB (Rec: 01/08/23 10:14 AMB [id number]) Knee Goniometric Range of Motion Knee Right Flexion Active (degrees) 126 Extension Passive (degrees) 0 Left Patient Position Supine Flexion Active (degrees) 96 Extension Passive (degrees) 0 PT-OP-M Strength Start: 01/04/23 12:55 Freq: Status: Active Protocol: Document 01/08/23 10:05 AMB (Rec: 01/08/23 10:14 AMB [id number]) Knee Strength Knee Manual Muscle Testing Right Flexion (S2) 4+ Good+ Extension (L3) 4+ Good+ Left Flexion (S2) 3 Fair Extension (L3) 3 Fair PT-OP-Q Treatments Start: 01/04/23 12:55 Freq: Status: Active Protocol: Document 03/18/23 10:58 AMB (Rec: 03/18/23 11:58 AMB [id number]) Cardio Equipment Bicycle (Upright) Duration (Minutes) 7 Resistance 9 Seat Position 5 Therapeutic Exercises Standing Exercises calf stretch Reps/Minutes 30x2 mini lunges Reps/Minutes 2x10 step up Side left Equipment Used 5 in step w/rail prn Reps/Minutes 10 Comments cues for glute engagement sit to stand Side bilateral Reps/Minutes 2 Comments cues for LLE to be more under her squat Standing Exercise Name mini at rail Side bilateral Reps/Minutes 2x10 Manual Therapy Treatment Joint Mobilizations patellar mob Direction sup/inf/med/lat Grade III Body Position Supine PT-OP-R Modalities Start: 01/04/23 12:55 Freq: Status: Active Protocol: Document 02/28/23 10:03 [facility] (Rec: 02/28/23 14:53 [facility] [id number]) Hot Pack/Cold Pack Treatment Cold Pack Location left knee Patient Position Hooklying Treatment Duration (minutes) 10 Patient Tolerance Good PT-OP-T Assessment and Plan Start: 01/04/23 12:55 Freq: Status: Active Protocol: Document 03/18/23 10:58 AMB (Rec: 03/18/23 11:58 AMB [id number]) Physical Therapy Assessment Goals Gait Short Term Goal (STG) Lakshmi will ambulate for 5 minutes without antalgic gait without AD. 02/19: 4/10 pain does continue to have antalgia STG Duration 5 weeks Gas Controller Goal (LTG) Lakshmi will ambulate without AD over uneven surfaces with knee pain of 3/10 or less. continues to have pain 7-8/ 10 pain after walking 1/2 mile LTG Duration 10 weeks Strength Short Term Goal (STG) Lakshmi will improve her knee strength so that she can ascend stairs with an alternating gait pattern. STG Duration MET Gas Controller Goal (LTG) Lakshmi will improve her knee strength so that she can perform a partial squat for gardening purposes. 02/19 unable LTG Duration 10 weeks ROM Short Term Goal (STG) Lakshmi will improve her ROM to at least 5-100 degrees passively. STG Duration MET Gas Controller Goal (LTG) Lakshmi will improve her active ROM to 0-120. LTG Duration 03/15: 0-119 Assessment Summary Assessment Lakshmi continues to need to strengthen her quads and glutes but pain has been the main limiting factor in this regard. Follow up on HEP. Physical Therapy Plan Frequency and Duration Frequency of Treatment 2x/Week Duration of treatment (weeks) 10 Plan of Care Start Date 03/15/23 Plan of Care End Date 05/24/23 Therapeutic Interventions Therapeutic Interventions Home Exercise Program,Manual Therapy,Neuromuscular Re- education,Self-Care/Home Management,Therapeutic Activities,Therapeutic Exercises Modalities Cold Pack/Ice Massage,Electric Stimulation,Hot Packs Next Visit Focus/Plan Next Note Type Progress Note Next Visit Plan Progress tolerance for gait, squats, stairs, progress knee flexion ROM
--- NOTE | 2023-03-20 12:56 | PT.OTN ---
Current Diagnoses Unilateral primary osteoarthritis, left knee (03/20/23) Other abnormalities of gait and mobility (03/20/23) Physical Therapy Treatment Note PT-OP-A Visit Information Start: 01/04/23 12:55 Freq: Status: Active Protocol: Document 03/20/23 12:03 AMB (Rec: 03/20/23 12:46 AMB [id number]) Out-Patient Physical Therapy Visit Information Visit Information Visit Type Treatment Note Visit Start Time 12:00 Visit Stop Time 12:45 Total Visit Minutes 45 Visit Number 17 PT-OP-B Current Condition Start: 01/04/23 12:55 Freq: Status: Active Protocol: Document 02/07/23 11:18 SAK (Rec: 02/07/23 12:02 SAK [id number]) Current Condition History of Current Condition Onset Date June 2022 Current Complaints partial knee replacement History of Current Condition Wants to be able to walk 3 miles. Gardening. Lives in a single level home with , no steps to enter, has a walker (4WW, and a standard walk). 3/10 in seated, increases with moving from sit to stand and walking. Currently walking only about a couple hundred feet due to the pain. PT-OP-C Subjective Start: 01/04/23 12:55 Freq: Status: Active Protocol: Document 03/20/23 12:03 AMB (Rec: 03/20/23 12:46 AMB [id number]) OP-PT Subjective Patient Comments Patient Comments Pt reporting doing better today. PT-OP-G Mobility & Gait Start: 01/04/23 12:55 Freq: Status: Active Protocol: Document 01/08/23 09:45 AMB (Rec: 01/11/23 10:53 AMB [id number]) OP Gait Assessment Comments Gait Comments Pt with antalgic gait, difficulty flexing knee for appropriate gait patterning, wearing knee brace butnot ambulating with assistive device. PT-OP-K Range of Motion Start: 01/04/23 12:55 Freq: Status: Active Protocol: Document 01/08/23 10:05 AMB (Rec: 01/08/23 10:14 AMB [id number]) Knee Goniometric Range of Motion Knee Right Flexion Active (degrees) 126 Extension Passive (degrees) 0 Left Patient Position Supine Flexion Active (degrees) 96 Extension Passive (degrees) 0 PT-OP-M Strength Start: 01/04/23 12:55 Freq: Status: Active Protocol: Document 01/08/23 10:05 AMB (Rec: 01/08/23 10:14 AMB [id number]) Knee Strength Knee Manual Muscle Testing Right Flexion (S2) 4+ Good+ Extension (L3) 4+ Good+ Left Flexion (S2) 3 Fair Extension (L3) 3 Fair PT-OP-Q Treatments Start: 01/04/23 12:55 Freq: Status: Active Protocol: Document 03/20/23 12:03 AMB (Rec: 03/20/23 12:46 AMB [id number]) Cardio Equipment Bicycle (Upright) Duration (Minutes) 7 Resistance 9 Seat Position 5 Therapeutic Exercises Standing Exercises mini lunges Reps/Minutes 2x10 step up Side left Equipment Used 5 in step w/rail prn Reps/Minutes 10 Comments cues for glute engagement sit to stand Side bilateral Reps/Minutes 2 Comments cues for LLE to be more under her squat Standing Exercise Name mini at rail Side bilateral Reps/Minutes 2x10 Manual Therapy Treatment Soft Tissue Mobilization 1 Body Location left knee Mobilization Type Myofascial Release Intensity/Depth Moderate Comments scar tissue Joint Mobilizations Tibfem Joint R AP on femur FM patellar mob Direction sup/inf/med/lat Grade III Body Position Supine PT-OP-R Modalities Start: 01/04/23 12:55 Freq: Status: Active Protocol: Document 02/28/23 10:03 [facility] (Rec: 02/28/23 14:53 [facility] [id number]) Hot Pack/Cold Pack Treatment Cold Pack Location left knee Patient Position Hooklying Treatment Duration (minutes) 10 Patient Tolerance Good PT-OP-T Assessment and Plan Start: 01/04/23 12:55 Freq: Status: Active Protocol: Document 03/20/23 12:03 AMB (Rec: 03/20/23 12:46 AMB [id number]) Physical Therapy Assessment Goals Gait Short Term Goal (STG) Lakshmi will ambulate for 5 minutes without antalgic gait without AD. 02/19: 4/10 pain does continue to have antalgia STG Duration 5 weeks Kitchen Help Handyman Goal (LTG) Lakshmi will ambulate without AD over uneven surfaces with knee pain of 3/10 or less. continues to have pain 7-8/ 10 pain after walking 1/2 mile LTG Duration 10 weeks Strength Short Term Goal (STG) Lakshmi will improve her knee strength so that she can ascend stairs with an alternating gait pattern. STG Duration MET Detention Goal (LTG) Lakshmi will improve her knee strength so that she can perform a partial squat for gardening purposes. 02/19 unable LTG Duration 10 weeks ROM Short Term Goal (STG) Lakshmi will improve her ROM to at least 5-100 degrees passively. STG Duration MET Detention Goal (LTG) Lakshmi will improve her active ROM to 0-120. LTG Duration 03/15: 0-119 Assessment Summary Assessment Lakshmi is doing better with her pain, continues to have pain with squats and knee flexion. Pt continues to have antalgic gait, she states she is trying to be more aware of this. Other than painful squats she is doing well with her exercises. Physical Therapy Plan Frequency and Duration Frequency of Treatment 2x/Week Duration of treatment (weeks) 10 Plan of Care Start Date 03/15/23 Plan of Care End Date 05/24/23 Therapeutic Interventions Therapeutic Interventions Home Exercise Program,Manual Therapy,Neuromuscular Re- education,Self-Care/Home Management,Therapeutic Activities,Therapeutic Exercises Modalities Cold Pack/Ice Massage,Electric Stimulation,Hot Packs Next Visit Focus/Plan Next Note Type Progress Note Next Visit Plan Progress tolerance for gait, squats, stairs, progress knee flexion ROM
--- NOTE | 2023-04-02 11:36 | PT.OTN ---
Current Diagnoses Unilateral primary osteoarthritis, left knee (04/02/23) Other abnormalities of gait and mobility (04/02/23) Physical Therapy Treatment Note PT-OP-A Visit Information Start: 01/04/23 12:55 Freq: Status: Active Protocol: Document 04/02/23 10:49 AMB (Rec: 04/02/23 11:36 AMB [id number]) Out-Patient Physical Therapy Visit Information Visit Information Visit Type Treatment Note Visit Start Time 10:45 Visit Stop Time 11:30 Total Visit Minutes 45 Visit Number 18 PT-OP-B Current Condition Start: 01/04/23 12:55 Freq: Status: Active Protocol: Document 02/07/23 11:18 SAK (Rec: 02/07/23 12:02 SAK [id number]) Current Condition History of Current Condition Onset Date June 2022 Current Complaints partial knee replacement History of Current Condition Wants to be able to walk 3 miles. Gardening. Lives in a single level home with , no steps to enter, has a walker (4WW, and a standard walk). 3/10 in seated, increases with moving from sit to stand and walking. Currently walking only about a couple hundred feet due to the pain. PT-OP-C Subjective Start: 01/04/23 12:55 Freq: Status: Active Protocol: Document 04/02/23 10:49 AMB (Rec: 04/02/23 11:36 AMB [id number]) OP-PT Subjective Patient Comments Patient Comments Pt has been working in the garden, but hasn't obdulio able to get down super low due to knee not bending as much. PT-OP-G Mobility & Gait Start: 01/04/23 12:55 Freq: Status: Active Protocol: Document 01/08/23 09:45 AMB (Rec: 01/11/23 10:53 AMB [id number]) OP Gait Assessment Comments Gait Comments Pt with antalgic gait, difficulty flexing knee for appropriate gait patterning, wearing knee brace butnot ambulating with assistive device. PT-OP-K Range of Motion Start: 01/04/23 12:55 Freq: Status: Active Protocol: Document 01/08/23 10:05 AMB (Rec: 01/08/23 10:14 AMB [id number]) Knee Goniometric Range of Motion Knee Right Flexion Active (degrees) 126 Extension Passive (degrees) 0 Left Patient Position Supine Flexion Active (degrees) 96 Extension Passive (degrees) 0 PT-OP-M Strength Start: 01/04/23 12:55 Freq: Status: Active Protocol: Document 01/08/23 10:05 AMB (Rec: 01/08/23 10:14 AMB [id number]) Knee Strength Knee Manual Muscle Testing Right Flexion (S2) 4+ Good+ Extension (L3) 4+ Good+ Left Flexion (S2) 3 Fair Extension (L3) 3 Fair PT-OP-Q Treatments Start: 01/04/23 12:55 Freq: Status: Active Protocol: Document 04/02/23 10:49 AMB (Rec: 04/02/23 11:36 AMB [id number]) Cardio Equipment Bicycle (Upright) Duration (Minutes) 7 Resistance 9 Seat Position 5 Gym Equipment Shuttle Recovery Unilateral Squats Details elena Resistance 37 Shuttle Recovery Platform Stable Reps/Time 2x15 Therapeutic Exercises Sitting Exercises quad stretch Reps/Minutes 5x5 Comments pt opp LE assisting with stretch into knee flex Standing Exercises mini lunges Standing Exercise Name on black air balance Reps/Minutes 2x10 step up Standing Exercise Name lateral 4 step Side left Equipment Used 5 in step w/rail prn Reps/Minutes 10 Comments cues for glute engagement Manual Therapy Treatment Soft Tissue Mobilization 1 Body Location left knee Mobilization Type Myofascial Release Intensity/Depth Moderate Comments scar tissue Joint Mobilizations Tibfem Joint R AP on femur FM Other Other Manual Treatments therapist provided PROM PT-OP-R Modalities Start: 01/04/23 12:55 Freq: Status: Active Protocol: Document 02/28/23 10:03 [facility] (Rec: 02/28/23 14:53 [facility] [id number]) Hot Pack/Cold Pack Treatment Cold Pack Location left knee Patient Position Hooklying Treatment Duration (minutes) 10 Patient Tolerance Good PT-OP-T Assessment and Plan Start: 01/04/23 12:55 Freq: Status: Active Protocol: Document 04/02/23 10:49 AMB (Rec: 04/02/23 11:36 AMB [id number]) Physical Therapy Assessment Goals Gait Short Term Goal (STG) Lakshmi will ambulate for 5 minutes without antalgic gait without AD. 30: 4/10 pain does continue to have antalgia STG Duration 5 weeks Mcc Goal (LTG) Lakshmi will ambulate without AD over uneven surfaces with knee pain of 3/10 or less. continues to have pain 7-8/ 10 pain after walking 1/2 mile LTG Duration 10 weeks Strength Short Term Goal (STG) Lakshmi will improve her knee strength so that she can ascend stairs with an alternating gait pattern. STG Duration MET Car Park Attendant Goal (LTG) Lakshmi will improve her knee strength so that she can perform a partial squat for gardening purposes. 02/19 unable LTG Duration 10 weeks ROM Short Term Goal (STG) Lakshmi will improve her ROM to at least 5-100 degrees passively. STG Duration MET Mcc Goal (LTG) Lakshmi will improve her active ROM to 0-120. LTG Duration 03/15: 0-119 Assessment Summary Assessment Pt notes seizing up with sitting or lying down which limits her ability to sleep. She describes this pain that limits her abilty to move the knee. Overal ROM doing well, strength continues to be limited especially with stairs and squats. Physical Therapy Plan Frequency and Duration Frequency of Treatment 2x/Week Duration of treatment (weeks) 10 Plan of Care Start Date 03/15/23 Plan of Care End Date 05/24/23 Therapeutic Interventions Therapeutic Interventions Home Exercise Program,Manual Therapy,Neuromuscular Re- education,Self-Care/Home Management,Therapeutic Activities,Therapeutic Exercises Modalities Cold Pack/Ice Massage,Electric Stimulation,Hot Packs Next Visit Focus/Plan Next Note Type Progress Note Next Visit Plan Progress tolerance for gait, squats, stairs, progress knee flexion ROM
--- NOTE | 2023-04-09 14:11 | PT.OTN ---
Current Diagnoses Unilateral primary osteoarthritis, left knee (04/09/23) Other abnormalities of gait and mobility (04/09/23) Physical Therapy Treatment Note PT-OP-A Visit Information Start: 01/04/23 12:55 Freq: Status: Active Protocol: Document 04/09/23 10:49 AMB (Rec: 04/09/23 11:35 AMB [id number]) Out-Patient Physical Therapy Visit Information Visit Information Visit Type Treatment Note Visit Note 01/30 Visit Start Time 10:45 Visit Stop Time 11:30 Total Visit Minutes 45 Visit Number 19 PT-OP-B Current Condition Start: 01/04/23 12:55 Freq: Status: Active Protocol: Document 02/07/23 11:18 SAK (Rec: 02/07/23 12:02 SAK [id number]) Current Condition History of Current Condition Onset Date June 2022 Current Complaints partial knee replacement History of Current Condition Wants to be able to walk 3 miles. Gardening. Lives in a single level home with , no steps to enter, has a walker (4WW, and a standard walk). 3/10 in seated, increases with moving from sit to stand and walking. Currently walking only about a couple hundred feet due to the pain. PT-OP-C Subjective Start: 01/04/23 12:55 Freq: Status: Active Protocol: Document 04/09/23 10:49 AMB (Rec: 04/09/23 11:35 AMB [id number]) OP-PT Subjective Patient Comments Patient Comments Pt reports continued stiffness / pain at night. PT-OP-G Mobility & Gait Start: 01/04/23 12:55 Freq: Status: Active Protocol: Document 01/08/23 09:45 AMB (Rec: 01/11/23 10:53 AMB [id number]) OP Gait Assessment Comments Gait Comments Pt with antalgic gait, difficulty flexing knee for appropriate gait patterning, wearing knee brace butnot ambulating with assistive device. PT-OP-K Range of Motion Start: 01/04/23 12:55 Freq: Status: Active Protocol: Document 01/08/23 10:05 AMB (Rec: 01/08/23 10:14 AMB [id number]) Knee Goniometric Range of Motion Knee Right Flexion Active (degrees) 126 Extension Passive (degrees) 0 Left Patient Position Supine Flexion Active (degrees) 96 Extension Passive (degrees) 0 PT-OP-M Strength Start: 01/04/23 12:55 Freq: Status: Active Protocol: Document 01/08/23 10:05 AMB (Rec: 01/08/23 10:14 AMB [id number]) Knee Strength Knee Manual Muscle Testing Right Flexion (S2) 4+ Good+ Extension (L3) 4+ Good+ Left Flexion (S2) 3 Fair Extension (L3) 3 Fair PT-OP-Q Treatments Start: 01/04/23 12:55 Freq: Status: Active Protocol: Document 04/09/23 10:49 AMB (Rec: 04/09/23 11:35 AMB [id number]) Cardio Equipment Recumbent Bicycle Duration (Minutes) 10 Resistance 8 Other upright not available Gym Equipment Shuttle Recovery Unilateral Squats Details elena Resistance 37 Shuttle Recovery Platform Stable Reps/Time 2x15 Bilateral Squats Resistance 62 Shuttle Recovery Platform Stable Reps/Time [id number] full knee ext Therapeutic Exercises Standing Exercises hip extension Standing Exercise Name yellow Reps/Minutes 2x10 calf stretch Reps/Minutes 30x2 step up Standing Exercise Name forward 6 Side left Equipment Used 5 in step w/rail prn Reps/Minutes 10 Comments cues for glute engagement sit to stand Side bilateral Reps/Minutes 2 Comments cues for LLE to be more under her squat Standing Exercise Name mini at rail Side bilateral Reps/Minutes 2x10 Neuro Re-Education Treatment Balance Activities single leg stance Reps/Duration 5 min Comments on firm and blue foam--up to 10 seconds, more challenging on surgical leg PT-OP-R Modalities Start: 01/04/23 12:55 Freq: Status: Active Protocol: Document 02/28/23 10:03 [facility] (Rec: 02/28/23 14:53 [facility] [id number]) Hot Pack/Cold Pack Treatment Cold Pack Location left knee Patient Position Hooklying Treatment Duration (minutes) 10 Patient Tolerance Good PT-OP-T Assessment and Plan Start: 01/04/23 12:55 Freq: Status: Active Protocol: Document 04/09/23 10:49 AMB (Rec: 04/09/23 11:35 AMB [id number]) Physical Therapy Assessment Goals Gait Short Term Goal (STG) Lakshmi will ambulate for 5 minutes without antalgic gait without AD. 30: 4/10 pain does continue to have antalgia STG Duration 5 weeks Group Manager Goal (LTG) Lakshmi will ambulate without AD over uneven surfaces with knee pain of 3/10 or less. continues to have pain 7-8/ 10 pain after walking 1/2 mile LTG Duration 10 weeks Strength Short Term Goal (STG) Lakshmi will improve her knee strength so that she can ascend stairs with an alternating gait pattern. STG Duration MET Group Manager Goal (LTG) Lakshmi will improve her knee strength so that she can perform a partial squat for gardening purposes. 02/19 unable LTG Duration 10 weeks ROM Short Term Goal (STG) Lakshmi will improve her ROM to at least 5-100 degrees passively. STG Duration MET Nursing Home Goal (LTG) Lakshmi will improve her active ROM to 0-120. LTG Duration 03/15: 0-119 Assessment Summary Assessment Pt reports soreness after last visit, would like to avoid manual therapy. Did well with single leg stance, challenged by hip extension with yellow band. Physical Therapy Plan Frequency and Duration Frequency of Treatment 2x/Week Duration of treatment (weeks) 10 Plan of Care Start Date 03/15/23 Plan of Care End Date 05/24/23 Therapeutic Interventions Therapeutic Interventions Home Exercise Program,Manual Therapy,Neuromuscular Re- education,Self-Care/Home Management,Therapeutic Activities,Therapeutic Exercises Modalities Cold Pack/Ice Massage,Electric Stimulation,Hot Packs Next Visit Focus/Plan Next Note Type Treatment Note Next Visit Plan Progress tolerance for gait, squats, stairs, progress knee flexion ROM
--- NOTE | 2023-04-11 18:23 | PT.OTN ---
Current Diagnoses Unilateral primary osteoarthritis, left knee (04/11/23) Other abnormalities of gait and mobility (04/11/23) Physical Therapy Treatment Note PT-OP-A Visit Information Start: 01/04/23 12:55 Freq: Status: Active Protocol: Document 04/11/23 15:48 [facility] (Rec: 04/11/23 18:23 [facility] [id number]) Out-Patient Physical Therapy Visit Information Visit Information Visit Type Treatment Note Visit Note 03/02 Visit Start Time 16:04 Visit Stop Time 16:54 Total Visit Minutes 50 Visit Number 20 Number of MEASUREMENT SUPERINTENDENT Visits 0 PT-OP-B Current Condition Start: 01/04/23 12:55 Freq: Status: Active Protocol: Document 02/07/23 11:18 SAK (Rec: 02/07/23 12:02 SAK [id number]) Current Condition History of Current Condition Onset Date June 2022 Current Complaints partial knee replacement History of Current Condition Wants to be able to walk 3 miles. Gardening. Lives in a single level home with , no steps to enter, has a walker (4WW, and a standard walk). 3/10 in seated, increases with moving from sit to stand and walking. Currently walking only about a couple hundred feet due to the pain. PT-OP-C Subjective Start: 01/04/23 12:55 Freq: Status: Active Protocol: Document 04/11/23 15:48 [facility] (Rec: 04/11/23 18:23 [facility] [id number]) OP-PT Subjective Patient Comments Patient Comments Pt reports she is walking the dog (at [employer] 2x), squats, lunges, wt shifts, step ups ( notes much better at stairs now), sidesteps, banded ext standing. told her she is done w/PT and pt feels ready to be done. PT-OP-G Mobility & Gait Start: 01/04/23 12:55 Freq: Status: Active Protocol: Document 01/08/23 09:45 AMB (Rec: 01/11/23 10:53 AMB [id number]) OP Gait Assessment Comments Gait Comments Pt with antalgic gait, difficulty flexing knee for appropriate gait patterning, wearing knee brace butnot ambulating with assistive device. PT-OP-K Range of Motion Start: 01/04/23 12:55 Freq: Status: Active Protocol: Document 01/08/23 10:05 AMB (Rec: 01/08/23 10:14 AMB [id number]) Knee Goniometric Range of Motion Knee Right Flexion Active (degrees) 126 Extension Passive (degrees) 0 Left Patient Position Supine Flexion Active (degrees) 96 Extension Passive (degrees) 0 PT-OP-M Strength Start: 01/04/23 12:55 Freq: Status: Active Protocol: Document 01/08/23 10:05 AMB (Rec: 01/08/23 10:14 AMB [id number]) Knee Strength Knee Manual Muscle Testing Right Flexion (S2) 4+ Good+ Extension (L3) 4+ Good+ Left Flexion (S2) 3 Fair Extension (L3) 3 Fair PT-OP-Q Treatments Start: 01/04/23 12:55 Freq: Status: Active Protocol: Document 04/11/23 15:48 [facility] (Rec: 04/11/23 18:23 [facility] [id number]) Cardio Equipment Bicycle (Upright) Duration (Minutes) 6 Resistance 9 Seat Position 5 Therapeutic Exercises Standing Exercises step down Standing Exercise Name 6 in w/rail w/toe tap down Side left Reps/Minutes 10 hip extension Standing Exercise Name green band Side bilateral Reps/Minutes 15 mini lunges Side bilateral Reps/Minutes 10 Comments cues for knee position SL Standing Exercise Name SLS Side bilateral sidestep Side bilateral Equipment Used green band Reps/Minutes 10ftx3 ea Comments cues posture step up Standing Exercise Name forward 6 Side left Equipment Used w/rail prn Reps/Minutes 10 Comments cues for glute engagement squat Standing Exercise Name mini at rail Side bilateral Reps/Minutes 15 Gait Training Gait Activity gait Comments 1. wt shifts by rail x10 B cues for knee ext and keeping torso over pelvis & full wt acceptance 2. push off w/dowl resisted by PT x50ft 3. 50ft & 30ftx2 w/cues for push off Self-Care/Home Management Treatment Education Other Education review HEP handout x5 min PT-OP-R Modalities Start: 01/04/23 12:55 Freq: Status: Active Protocol: Document 02/28/23 10:03 [facility] (Rec: 02/28/23 14:53 [facility] [id number]) Hot Pack/Cold Pack Treatment Cold Pack Location left knee Patient Position Hooklying Treatment Duration (minutes) 10 Patient Tolerance Good PT-OP-T Assessment and Plan Start: 01/04/23 12:55 Freq: Status: Active Protocol: Document 04/11/23 15:48 [facility] (Rec: 04/11/23 18:23 [facility] [id number]) Physical Therapy Assessment Goals Gait Short Term Goal (STG) Lakshmi will ambulate for 5 minutes without antalgic gait without AD. 02/19: 4/ pain does continue to have antalgia STG Duration achieved Penitentiary Goal (LTG) Lakshmi will ambulate without AD over uneven surfaces with knee pain of 3/10 or less. continues to have pain 7-8/ 10 pain after walking 1/2 mile LTG Duration has not tried but doing well. Strength Short Term Goal (STG) Lakshmi will improve her knee strength so that she can ascend stairs with an alternating gait pattern. STG Duration MET Penitentiary Goal (LTG) Lakshmi will improve her knee strength so that she can perform a partial squat for gardening purposes. 02/19 unable LTG Duration achieved ROM Short Term Goal (STG) Lakshmi will improve her ROM to at least 5-100 degrees passively. STG Duration MET Instructional Technology Teacher Goal (LTG) Lakshmi will improve her active ROM to 0-120. LTG Duration achieve 0-123 Assessment Summary Assessment Pt has met her goals except uneven surfaces as she has not tried anything besides her garden, but is unconcerned re: this. She is indep w/HEP and was given some small cues to focus on for each exercise and w/gait. Pt DC to HEP. Physical Therapy Plan Discharge Physical Therapy Discharge Reasons Goals Met
--- NOTE | 2023-04-11 18:23 | PT.OPDS ---
Current Diagnoses Unilateral primary osteoarthritis, left knee (04/11/23) Other abnormalities of gait and mobility (04/11/23) Visit Care Team Role Provider Type Cleveland Driver MD Family Provider Physician Primary Care Provider Specialty: Internal Medicine Address: [address] [place] [address], [address], [address] Email: [email or web address] Linda Suh MD Attending Provider Physician Referring Provider Specialty: Orthopedics Orthopedic Surgery Address: [address] [place] [address], [id number] Email: [email or web address] Visit Number Visit Number 20 Discharge Summary PT-OP-B Current Condition Start: 01/04/23 12:55 Freq: Status: Active Protocol: Document 02/07/23 11:18 SAK (Rec: 02/07/23 12:02 SAK [id number]) Current Condition History of Current Condition Onset Date June 2022 Current Complaints partial knee replacement History of Current Condition Wants to be able to walk 3 miles. Gardening. Lives in a single level home with , no steps to enter, has a walker (4WW, and a standard walk). 3/10 in seated, increases with moving from sit to stand and walking. Currently walking only about a couple hundred feet due to the pain. PT-OP-C Subjective Start: 01/04/23 12:55 Freq: Status: Active Protocol: Document 04/11/23 15:48 [facility] (Rec: 04/11/23 18:23 LR [id number]) OP-PT Subjective Patient Comments Patient Comments Pt reports she is walking the dog (at [employer] 2x), squats, lunges, wt shifts, step ups ( notes much better at stairs now), sidesteps, banded ext standing. told her she is done w/PT and pt feels ready to be done. PT-OP-G Mobility & Gait Start: 01/04/23 12:55 Freq: Status: Active Protocol: Document 01/08/23 09:45 AMB (Rec: 01/11/23 10:53 AMB [id number]) OP Gait Assessment Comments Gait Comments Pt with antalgic gait, difficulty flexing knee for appropriate gait patterning, wearing knee brace butnot ambulating with assistive device. PT-OP-K Range of Motion Start: 01/04/23 12:55 Freq: Status: Active Protocol: Document 01/08/23 10:05 AMB (Rec: 01/08/23 10:14 AMB [id number]) Knee Goniometric Range of Motion Knee Right Flexion Active (degrees) 126 Extension Passive (degrees) 0 Left Patient Position Supine Flexion Active (degrees) 96 Extension Passive (degrees) 0 PT-OP-M Strength Start: 01/04/23 12:55 Freq: Status: Active Protocol: Document 01/08/23 10:05 AMB (Rec: 01/08/23 10:14 AMB [id number]) Knee Strength Knee Manual Muscle Testing Right Flexion (S2) 4+ Good+ Extension (L3) 4+ Good+ Left Flexion (S2) 3 Fair Extension (L3) 3 Fair PT-OP-T Assessment and Plan Start: 01/04/23 12:55 Freq: Status: Active Protocol: Document 04/11/23 15:48 [facility] (Rec: 04/11/23 18:23 [facility] [id number]) Physical Therapy Assessment Goals Gait Short Term Goal (STG) Lakshmi will ambulate for 5 minutes without antalgic gait without AD. 02/19: 4/10 pain does continue to have antalgia STG Duration achieved Mcc Goal (LTG) Lakshmi will ambulate without AD over uneven surfaces with knee pain of 3/10 or less. continues to have pain 7-8/ 10 pain after walking 1/2 mile LTG Duration has not tried but doing well. Strength Short Term Goal (STG) Lakshmi will improve her knee strength so that she can ascend stairs with an alternating gait pattern. STG Duration MET Mcc Goal (LTG) Lakshmi will improve her knee strength so that she can perform a partial squat for gardening purposes. 02/19 unable LTG Duration achieved ROM Short Term Goal (STG) Lakshmi will improve her ROM to at least 5-100 degrees passively. STG Duration MET Mcc Goal (LTG) Lakshmi will improve her active ROM to 0-120. LTG Duration achieve 0-123 Assessment Summary Assessment Pt has met her goals except uneven surfaces as she has not tried anything besides her garden, but is unconcerned re: this. She is indep w/HEP and was given some small cues to focus on for each exercise and w/gait. Pt DC to HEP. Physical Therapy Plan Discharge Physical Therapy Discharge Reasons Goals Met
== END 2023-04-12 15:19 | disposition home or self-care (01) ==
LOC: PHYS 16:00
PROVIDERS: Absent Provider Internal Medicine; Family Provider Internal Medicine; PCP Internal Medicine; Referring Provider Orthopaedic Surgery Foot and Ankle Surgery; Visit Provider Orthopaedic Surgery Foot and Ankle Surgery
DX: M17.12 Unilateral primary osteoarthritis, left knee (principal); R26.89 Other abnormalities of gait and mobility
CPT/HCPCS: 97110; 97116; 97140; 97161

== ENCOUNTER 2023-11-08 07:25 | Day surgery (SDC) | payer MEDICARE, SELFPAY ==
[2023-11-08] VITALS (8 sets, daily range): BP systolic 89–107; BP diastolic 57–77; PULSE 76–91; RESP 12–16; TEMP 36.1–36.6; O2SAT 91–98; BMI 27.3
[2023-11-08] MEDS: LACTATED RINGERS 1,000 ML 100 ML IV (07:42)
--- NOTE | 2023-11-08 08:28 | P.HP_ITS ---
History of Present Illness History of Present Illness Date Patient Seen: 11/08/23 Time Patient Seen: 08:28 Chief complaint: Dx Colonoscopy w/poss bx Narrative: H/o colon polyps, no symptoms. Last scope 5 years ago. [facility] Medical History Uncomplicated opioid dependence Osteoporosis Essential hypertension Back pain Failed back surgical syndrome (06/13/17) Insomnia (05/27/15) Surgical History S/P insertion of intrathecal pump Previous back surgery History of knee replacement Social History marital status: Smoking Status: Never smoker alcohol intake: never substance use type: does not use Meds Home Medications and Allergies Home Medications Medication Instructions Recorded Confirmed Type CA PANTOTHENATE/FOLIC ACID/VIT 1 tab PO QDAY ##0 09/25/12 11/08/23 History (MULTIVITAMIN) CALCIUM CARB/VIT D3/MINERALS 1 tab PO QDAY ##0 09/25/12 06/14/23 History (Caltrate-600 With Vit D Tab) valsartan 40 mg tablet 40 mg PO DAILY #90 tabs 11/26/22 11/08/23 Rx cyclobenzaprine 10 mg tablet 10 mg PO BEDTIME #90 tabs 01/31/23 11/08/23 Rx valacyclovir 1 gram tablet 1,000 mg PO TID #270 tabs 05/20/23 11/08/23 Rx fentanyl 50 mcg/hr transdermal 1 patch transdermal Q72H 06/14/23 11/08/23 History patch oxycodone 10 mg tablet 10 mg PO TID PRN insominia 06/14/23 11/08/23 History zolpidem 10 mg tablet 10 - 20 mg (1 - 2 x 10 mg) PO 11/06/23 11/08/23 Rx BEDTIME PRN insomnia #60 tabs Allergies Allergy/AdvReac Type Severity Reaction Status Date / Time erythromycin base Allergy Mild RASH Verified 11/08/23 07:52 [ERYTHROMYCIN BASE] Review of Systems Review of Systems ROS: Yes All systems reviewed with the patient and are negative except as otherwise documented Exam Vital Signs (past 8 hours): - 11/08/23 07:56 Temperature 97 F L Pulse Rate 90 Respiratory Rate 16 Blood Pressure 107/77 Pulse Oximetry 98 Oxygen Delivery Method Room Air Oxygen Delivery Method Room Air Const General: comfortable HENMT Head: normal to inspection, normocephalic and atraumatic Ears: hearing grossly normal bilaterally Eyes Sclera: normal sclerae Neck Neck: trachea midline and No JVD Resp Effort & Inspection: normal respiratory effort and able to speak in complete sentences Cardio Rate: regular rate Rhythm: regular rhythm GI Palpation: soft Skin General: atrophy Neuro General: patient alert, patient awake and patient oriented x3 Cranial Nerves: tongue midline Cognition: normal cognition Psych Mental Status: mental status grossly normal Affect: normal affect Judgment: judgment good Assessment & Plan Assessment & Plan narrative: History of colon polyp Colonoscopy with anesthesia Time Spent With Patient Time with patient: less than 30 minutes
--- NOTE | 2023-11-08 08:59 | PM.OP.COLON ---
Operative Date/Time/Diagnoses Date of procedure: 11/08/23 Time of procedure: 08:59 Pre-op diagnosis: History of colon polyps Post-op diagnosis: same Procedure & Clinicians Study performed: Colonoscopy with anesthesia Same procedure as scheduled: Yes Indications: History of colon polyps Surgeon: Leticia Jesus Procedure Notes Procedure in detail: Preop diagnosis: History of colon polyps Postop diagnosis: Same Operative procedure: Colonoscopy with anesthesia Surgeon: Emeli Jesus MD Findings: No diverticulosis. No polyps identified. Procedure: Patient placed in lateral position. Rectal exam performed showing normal tone no masses. Colonoscope inserted into the rectum and advanced to ileocecal valve with minimal difficulty. Insufflation extraction scope and the above findings. Retroflex was included in the rectum. Impression: No polyps identified in this colonoscopy. Plan: Repeat colonoscopy in 5 years due to the history of colon polyps Specimen(s): none sent Complications: none Post-procedure Recommendations: Colonoscopy in 5 years Follow up: as needed Disposition: PACU
== END 2023-11-08 09:47 | disposition home or self-care (01) ==
PROVIDERS: Family Provider Internal Medicine; PCP Internal Medicine; Referring Provider Surgery; Visit Provider Surgery
PROC: 0DJD8ZZ Inspection of Lower Intestinal Tract, Via Natural or Artificial Opening Endoscopic (ICD-10-PCS; CPT 45378; principal; 2023-11-08 08:15)
DX: Z12.11 Encounter for screening for malignant neoplasm of colon (principal); Z86.010 Personal history of colon polyps
CPT/HCPCS: G0105; J2250; J2704

== ENCOUNTER → 2024-01-29 11:00 | Outpatient (CLI) | payer MEDICARE, SELFPAY ==
[2024-01-29 12:15] LABS: Alanine Aminotransferase 27 IU/L (<35); Albumin 4.6 g/dL (3.5-5.0); Albumin Globulin Ratio 1.6 (1.0-2.8); Alkaline Phosphatase 97 U/L (38-126); Aspartate Aminotransferase 29 IU/L (14-36); BUN Creatinine Ratio 22.4 (6-22); Bilirubin Total 0.4 mg/dL (0.2-1.3); Blood Urea Nitrogen 13 mg/dL (7-17); Calcium 9.4 mg/dL (8.4-10.2); Carbon Dioxide 30 mmol/L (22-32); Chloride 102 mmol/L (98-107); Estimated Glomerular Filt Rate > 60 mL/min (>60); Globulin 2.9 g/dL (1.7-4.1); Glucose 102 mg/dL (80-110); HEMOLYSIS < 15 (0-50); Potassium 4.5 mmol/L (3.4-5.1); Sodium 138 mmol/L (137-145); Total Protein 7.5 g/dL (6.3-8.2)
== END ==
PROVIDERS: Family Provider Internal Medicine; PCP Internal Medicine; Referring Provider Internal Medicine; Visit Provider Internal Medicine
DX: F11.20 Opioid dependence, uncomplicated (principal); I10 Essential (primary) hypertension
CPT/HCPCS: 36415; 80053

== ENCOUNTER → 2024-11-16 16:47 | Outpatient (CLI) | payer MEDICARE, SELFPAY | PROVIDERS: Family Provider Internal Medicine; PCP Internal Medicine; Visit Provider Internal Medicine | DX: R30.0 Dysuria (principal) | CPT/HCPCS: 87086 ==

== ENCOUNTER → 2025-02-19 15:19 | Outpatient (CLI) | payer MEDICARE, SELFPAY ==
--- NOTE | 2025-02-19 15:20 | DI.RAD.S_ITS ---
PROCEDURE: FL BARIUM SWALLOW INDICATIONS: dysphagia COMPARISON: None. FINDINGS AND IMPRESSION: On lateral pharynx images, no desmond aspiration noted. No obstructing mass identified. Mild esophageal dysmotility is seen, with premature stoppage of the primary wave and tertiary contractions noted. There is a small hiatal hernia. Mild narrowing above the hernia possibly a mildly narrowed B ring. Consider endoscopy follow-up. Mild intra esophageal reflux, without significant gastroesophageal reflux. Dictated by: Dallas Garsia M.D. on 02/19/2025 at 16:39 Approved by: Dallas Garsia M.D. on 02/19/2025 at 16:41
== END ==
PROVIDERS: Family Provider Internal Medicine; PCP Internal Medicine; Referring Provider Internal Medicine; Visit Provider Radiology Diagnostic Radiology
DX: R13.10 Dysphagia, unspecified (principal); K22.9 Disease of esophagus, unspecified; K44.9 Diaphragmatic hernia without obstruction or gangrene; K21.9 Gastro-esophageal reflux disease without esophagitis
CPT/HCPCS: 74220

== ENCOUNTER → 2025-03-18 13:54 | Outpatient (CLI) | payer MEDICARE, SELFPAY | PROVIDERS: PCP Internal Medicine; Visit Provider Internal Medicine | DX: R30.0 Dysuria (principal) | CPT/HCPCS: 87086 ==

== ENCOUNTER → 2025-07-16 11:20 | Outpatient (CLI) | payer MEDICARE, SELFPAY ==
[2025-07-16 11:45] LABS: Ur Specific Gravity Normal (Normal)
[2025-07-16 11:46] LABS: UR Morphine/Opiate cutoff 300 Negative (Negative); Urine MDMA Negative (Negative); Urine Methamphetamines Negative (Negative); Urine Tetrahydrocannabinol Negative (Negative); Urine Tricyclic Antidepressant Positive (Negative)
== END ==
PROVIDERS: PCP Internal Medicine; Referring Provider Physician Assistant Medical; Visit Provider Physician Assistant Medical
DX: G89.29 Other chronic pain (principal); F11.90 Opioid use, unspecified, uncomplicated; M54.50 Low back pain, unspecified; M96.1 Postlaminectomy syndrome, not elsewhere classified; Z97.8 Presence of other specified devices
CPT/HCPCS: 80305

== ENCOUNTER → 2025-07-27 13:35 | Outpatient (CLI) | payer MEDICARE, SELFPAY ==
--- NOTE | 2025-07-27 13:36 | DI.MG.S_ITS ---
MM screening mammo BI: 07/27/2025. BI-RADS: 1 CLINICAL: 64-year old female for bilateral screening mammogram. Tyrer-Cuzick lifetime risk of 7.3%. No personal or first-degree family history of breast cancer. PRIOR EXAMS 09/21/2020, 05/23/2018, 01/24/2017, 08/17/2015. MAMMOGRAPHY TECHNIQUE: 2D and 3D (tomosynthesis) digital mammographic views obtained, with additional images as needed for full coverage. Current study was also evaluated with a Computer Aided Detection (CAD) system. DENSITY B. There are scattered areas of fibroglandular density. MAMMOGRAPHY FINDINGS Bilateral: No suspicious mass, asymmetry, microcalcification, or other abnormality seen. IMPRESSION: * No evidence of malignancy. RECOMMENDATIONS Bilateral * Annual screening mammography. OVERALL ASSESSMENT CATEGORY BI-RADS-1: Negative. The [employer] recommends annual screening mammography beginning at age 40 for women with average risk of breast cancer. ELECTRONICALLY SIGNED: Saima Newton M.D. on 07/27/2025 at 04:44:20 PM PT Interpreting Station ID: [id number]
== END ==
LOC: MAMMO 13:36
PROVIDERS: PCP Internal Medicine; Referring Provider Internal Medicine; Visit Provider Internal Medicine
DX: Z12.31 Encounter for screening mammogram for malignant neoplasm of breast (principal)
CPT/HCPCS: 77063; 77067